=== PATIENT | male | born 1960 | race Caucasian/White ===

== ENCOUNTER 2018-03-09 20:34 | Emergency (ER) | payer MEDICARE, SELFPAY ==
[2018-03-09 20:35] VITALS: BP 140/76; PULSE 94; RESP 18; TEMP 35.6; O2SAT 97; BMI 47.0
[2018-03-09 20:45] VITALS: BP 111/68; PULSE 93; RESP 18; O2SAT 93
[2018-03-09] MEDS: Aspirin 81 MG TAB.CHEW 324 MG PO (21:02)
[2018-03-09 21:10] LABS: Absolute Lymphocyte Count 2.27 X10^3/ul (0.83-4.51); Absolute Neutrophil Count 6.4 X10^3/uL (2.0-7.7); Basophil# 0.01 X10^3/uL; Basophil% 0.1 % (0-1); Eosinophil# 0.17 X10^3/uL; Eosinophils% 1.8 % (0-5); Hematocrit 45.7 % (40-54); Hemoglobin 15.3 g/dl (13.0-16.5); Lymphocyte # 2.27 X10^3/ul (4.0); Lymphocyte % 23.7 % (19-41); Mean Corp Hgb Conc 33.5 g/gl (32-36); Mean Corpuscular Volume 86.6 fL (80-94); Mean Platelet Vol. 11.2 fl (6.2-12.0); Monocyte% 7.3 % (0-10); Neutrophil # 6.41 X10^3/uL (2.7-7.7); Platelet Count 116 K/mm3 (150-450); RBC Distribution Width CV 15.1 % (11.6-14.6); RBC Distribution Width SD 48.3 fl (35.1-43.9); Red Blood Count 5.28 M/mm3 (4.6-6.2); White Blood Count 9.6 K/mm3 (4.4-11.0)
[2018-03-09 21:13] LABS: POSITIVE COUNT NO; POSITIVE DIFFERENTIAL NO; POSITIVE MORPHOLOGY NO
[2018-03-09 21:30] LABS: Anion Gap 9 (5-15); BUN 14 mg/dL (7-18); BUN/Creat Ratio 14.5 RATIO (10-20); Calcium,Total 9.2 mg/dL (8.5-10.1); Chloride 101 mmol/L (98-107); Creatinine, Serum 0.96 mg/dL (0.70-1.30); EST Glomerular Filtration Rate 86 mL/min (>60); Est Glom Filt Rate - Afr Amer 104 mL/min (>60); Estimated Creatinine Clearance 81.29 ml/min; Glucose 99 mg/dL (74-106); Potassium 3.3 mmol/L (3.5-5.1); Sodium Level 141 mmol/L (136-145)
--- NOTE | 2018-03-09 21:56 | ED.VISSUMM ---
- ER Visit Summary Date of Service: 03/09/18 Chief Complaint: Right arm and neck pain History of Present Illness: The patient is a 57 M with complaints of right arm and neck pain over the past 3 or 4 days. It is not worsened with movement. He states he did have similar symptoms prior CT 25 years ago. Patient does have 2 cardiac stents. His last stress test was 2 years ago and normal. Patient denies any pain radiating into his chest. He states that he is chronically short of breath and it is not any worse than normal. Pain is not worsened with exertion. Physical Examination: Vital signs unremarkable. Patient sitting upright in bed no acute distress. He speaking full sentences. Head neck examination is unremarkable. He does not have any reproducible tenderness over the neck or cervical region. Heart is regular rate and rhythm. Lung sounds are clear. Abdomen is soft nontender. Right upper extremity examination reveals no reducible tenderness. He has full range of motion without difficulty. He has strong distal pulses and normal sensation. Test Results: EKG is sinus 89 with no sign of acute ischemia. Portable chest x-ray shows elevated right hemidiaphragm. There is mild basilar atelectasis. CBC significant for a platelet count of 116,000, otherwise unremarkable. Chemistry studies show potassium slightly low at 3.3. Troponin is less than 0.015. Emergency Department Course and Treatment: Patient received aspirin on arrival. On repeat evaluation patient denies any significant change in his symptoms. He will be given potassium. He has had 3-4 days of constant pain with no EKG or troponin change. He would prefer to go home if possible. He has been taking tramadol. He will be given [place] in place of tramadol. I will speak with on-call for primary care physician to help arrange close follow-up. Treatment Plan: [] Disposition: Discharge Impression: Right neck and arm pain This note was generated with [employer] dictation software. It may contain incorrect words, spelling, and punctuation that were not noted in review of the chart prior to signing ED Disposition - Plan for ED Patient: Chief Complaint: Upper Extremity Injury Referrals: Manuelito Hughes MD [Primary Care Provider] -
--- NOTE | 2018-03-09 21:59 | ED.DEP ---
ED Disposition - Plan for ED Patient: Disposition: Home or Assisted Living Chief Complaint: Upper Extremity Injury Instructions: ED Neck Pain No Trauma Prescriptions: Hydrocodone Bitart/Apap 5-325 [Geraldine 5MG-325MG] 1 tablet PO Q6H PRN PRN 3 Days #10 tablet PRN Reason: Pain Referrals: Manuelito Hughes MD [Primary Care Provider] - As soon as possible
[2018-03-09 22:09] VITALS: BP 115/70; PULSE 85; RESP 14; O2SAT 98
[2018-03-09] MEDS: HYDROcodone Bitartrate/Apap 5/325 Tablet PO (22:17)
== END 2018-03-09 22:23 | disposition home or self-care (01) ==
PROVIDERS: Emergency Provider Emergency Medicine; Family Provider Internal Medicine; PCP Internal Medicine
DX: M54.2 Cervicalgia (principal); M79.601 Pain in right arm; E87.6 Hypokalemia; I25.2 Old myocardial infarction; I10 Essential (primary) hypertension; E78.00 Pure hypercholesterolemia, unspecified; K21.9 Gastro-esophageal reflux disease without esophagitis; E11.9 Type 2 diabetes mellitus without complications; E66.9 Obesity, unspecified; Z68.42 Body mass index [BMI] 45.0-49.9, adult; Z95.5 Presence of coronary angioplasty implant and graft; Z79.84 Long term (current) use of oral hypoglycemic drugs; Z79.4 Long term (current) use of insulin; Z79.899 Other long term (current) drug therapy
CPT/HCPCS: 71045; 80048; 84484; 85025; 93005; 99285; A4216

== ENCOUNTER 2019-02-22 16:32 | Inpatient (IN) | payer MEDICARE, SELFPAY ==
[2019-02-22] VITALS (9 sets, daily range): BP systolic 137–164; BP diastolic 62–97; PULSE 81–103; RESP 17–28; TEMP 37.1–37.6; O2SAT 80–98; BMI 47.1; BMI 48.2
--- NOTE | 2019-02-22 16:39 | EKG12_ITS ---
Test Reason : COUGH Blood Pressure : / mmHG Vent. Rate : 090 BPM Atrial Rate : 090 BPM P-R Int : 202 ms QRS Dur : 086 ms QT Int : 350 ms P-R-T Axes : 056 241 052 degrees QTc Int : 428 ms Normal sinus rhythm Low Voltage QRS (Limb Leads) Anterolateral infarct (cited on or before 09-MAR-2018), age undetermined Abnormal ECG Confirmed by APURVA ALEXIS, ELLIE ([id number]), art editor GAL COY ([id number]) on 02/25/2019 10:42:39 AM Referred By: Angel Goldberg Confirmed By:ELLIE MIXON MD
--- NOTE | 2019-02-22 16:40 | ED.VIS.GEN ---
History of Present Illness Chief Complaint: Cough Informant: Patient Onset: Weeks Context: Gradual Onset Timing: Continuous Current Severity: Moderate Maximum Severity: Severe Narrative: The patient presents to the emergency department cough and shortness of breath. The patient does have a significant smoking history, but states he is never been diagnosed with COPD or asthma. He states his symptoms began about a week ago. He states he had a tetanus shot. 2 days later, he was having chills and sweats. He states he began to have some upper respiratory symptoms with mild nasal drainage and now has had worsening cough. He states he feels like he cannot catch his breath. He is been doing breathing treatments little improvement. He does not think he had fever. He denies chest pain. He denies orthopnea or leg swelling. Prior similar symptoms: No Recent Illness/Hospitalization: No Past Medical History - Allergies and Home Meds Allergies/Adverse Reactions: Allergies No Known Allergies Allergy (Verified 02/22/19 16:34) Primary Care Physician: Manuelito Hughes MD [Primary Care Provider] - Prior records reviewed: Yes Surgical History: noncontributory Smoking Status: Current every day smoker Alcohol: None Drugs: Marijuana Review of Systems General: Reports: Chills Eyes: Denies: Visual changes - bilaterally, Diplopia ENT: Denies: Rhinorrhea, Sore throat Cardiovascular: Denies: Chest pain, Palpitations Respiratory: Reports: Cough, Dyspnea on exertion Gastrointestinal: Denies: Abdominal pain, Nausea, Vomiting, Diarrhea, Melena, Hematochezia Genitourinary: Denies: Dysuria, Hematuria, Frequency Musculoskeletal: Reports: Myalgias Skin: Denies: Rash, Wounds Neurological: Denies: Headache, Weakness, Numbness Physical Exam Vital Signs/Narrative: Vital Signs Temp Pulse Resp BP Pulse Ox 02/22/19 16:33 98.8 F 103 H 28 H 164/97 H 98 Inital Vital Signs reviewed: Yes General: Well nourished, Well developed, No Acute Distress Head: Normocephalic, Atraumatic Eyes: Perrl, EOMI ENT: Moist mucous membranes, No rhinorrhea Neck: Supple, Nontender Cardiovascular: Regular rate, Regular rhythm, No murmurs Respiratory: No distress, Chest nontender, Wheezing, Decreased Air Movement Abdomen: Soft, Nontender, Nondistended, Normal bowel sounds Back: Nontender, Normal Inspection Extremities: Nontender, No edema Skin: Normal color, No rash Neurological: Alert, Oriented x3, Cranial nerves II-XII grossly intact, Normal Strength, Normal Sensation Psychological: Normal affect, Normal Mood Diagnostic/Tx/Re-eval Chest X-Ray - ED: 1 View, Read by ED Physician, Left Infiltrate Clinical Impression(s) from Imaging Studies Chest X-Ray 02/22/19 16:57 IMPRESSION: Mild left upper lobe pneumonia is suspected. Electronically Signed: Shaun Cui MD at 17:29 EDT Tel , Service support , Abnormal Lab Results 02/22/19 02/22/19 02/22/19 17:06 17:06 17:12 WBC 13.3 H RBC 5.33 Hgb 15.0 Hct 46.4 MCV 87.1 MCH 28.1 MCHC 32.3 RDW Std Deviation 56.5 H RDW Coeff of Tariq 18.1 H Plt Count 130 L MPV 11.3 Immature Gran % (Auto) 0.500 Neut % (Auto) 77.5 H Lymph % (Auto) 14.6 L Briscoe % (Auto) 6.6 Eos % (Auto) 0.6 Baso % (Auto) 0.2 Absolute Neuts (auto) 10.3 H Absolute Lymphs (auto) 1.94 Nucleated RBC % 0 Sodium 134 L Potassium 3.7 Chloride 98 Carbon Dioxide 30.0 Anion Gap 6 BUN 17 Creatinine 1.23 Estim Creat Clear Calc 64.88 Est GFR (MDRD) Af Amer 78 Est GFR (MDRD) Non-Af 65 BUN/Creatinine Ratio 13.8 Glucose 160 H Lactic Acid 1.6 Calcium 9.4 Troponin I < 0.015 - Rhythm Strip Rhythm Strip: Sinus Rhythm - EKG Initial EKG Interpretation: Sinus Rhythm, Non-Specific ST Changes Prior: Unchanged - Medical Decision Making The patient initially was not hypoxic on triage vitals, however when he was placed in the room and placed on the employee relations specialist his oxygen saturations was in the low 80s. He was given nebulized breathing treatments and placed on supplemental oxygen. With his breathing treatments, his aeration had improved, but he was still requiring oxygen. Chest x-ray does show a left upper lobe infiltrate. He does have a leukocytosis, but otherwise labs are unremarkable. His EKG shows no evidence of acute ischemia. At this point, given his oxygen requirement and evidence of pneumonia I do feel that he would benefit from admission. He was covered with broad-spectrum antibiotics. The patient was discussed with the hospitalist. Impression 1. Community-acquired pneumonia 2. Hypoxia requiring supplemental oxygen ED Disposition - Plan for ED Patient: Referrals: Manuelito Hughes MD [Primary Care Provider] -
--- NOTE | 2019-02-22 16:57 | RAD_ITS ---
STUDY: X-RAY CHEST REASON FOR EXAM: Male, 58 years old. Cough TECHNIQUE: Single frontal view of the chest. COMPARISON: 03/09/2018 FINDINGS: Mild left upper lobe pneumonia is suspected. There is no demonstrated pleural abnormality. Normal size heart. Normal mediastinum and ny. Normal visualized pulmonary arteries. Normal visualized aortic arch and descending thoracic aorta. Normal visualized thoracic spine. Normal visualized ribs, clavicles, and shoulders. There is no demonstrated abnormality of the visualized soft tissue structures of the upper abdomen. RAD/Chest 1 View (Portable) IMPRESSION: Mild left upper lobe pneumonia is suspected. Electronically Signed: Shaun Cui MD at 17:29 EDT Tel , Service support ,
[2019-02-22] MEDS: MethylPREDNISolone 125 MG/2 ML Vial IV (17:02)
[2019-02-22] MEDS: Ipratropium/Albuterol Sulfate 3 ML AMPUL.NEB INHALATION ×2 (17:02→22:50)
[2019-02-22] MEDS: 0.9% Normal Saline 1,000 ML 150 ML IV (17:02)
[2019-02-22] MEDS: Albuterol 2.5 MG/3 ML VIAL.NEB. INHALATION ×3 (17:06→17:07)
[2019-02-22 17:34] LABS: Absolute Lymphocyte Count 1.94 X10^3/uL (0.83-4.51); Absolute Neutrophil Count 10.3 X10^3/uL (2.0-7.7); Basophil# 0.03 X10^3/uL; Basophil% 0.2 % (0-1); Eosinophil# 0.08 X10^3/uL; Eosinophils% 0.6 % (0-5); Hematocrit 46.4 % (40-54); Lymphocyte # 1.94 X10^3/ul (4.0); Lymphocyte % 14.6 % (19-41); Mean Corp Hgb Conc 32.3 g/dL (32-36); Mean Corpuscular Hgb 28.1 pg (27.0-32.0); Mean Corpuscular Volume 87.1 fL (80-94); Mean Platelet Vol. 11.3 fl (6.2-12.0); Monocyte# 0.88 X10^3/uL; Monocyte% 6.6 % (0-10); NRBC Flagged by Analyzer 0 % (0-5); Neutrophil # 10.32 X10^3/uL (2.7-7.7); Neutrophil % 77.5 % (47-70); Platelet Count 130 K/mm3 (150-450); RBC Distribution Width CV 18.1 % (11.6-14.6); RBC Distribution Width SD 56.5 fl (35.1-43.9); Red Blood Count 5.33 M/mm3 (4.6-6.2); White Blood Count 13.3 K/mm3 (4.4-11.0)
[2019-02-22] MEDS: Ceftriaxone 1 GM/50 ML BAG IV (17:39)
[2019-02-22 17:46] LABS: Lactic Acid 1.6 mmol/L (0.4-2.0)
[2019-02-22 17:47] LABS: Anion Gap 6 (5-15); BUN 17 mg/dL (7-18); BUN/Creat Ratio 13.8 RATIO (10-20); Calcium,Total 9.4 mg/dL (8.5-10.1); Chloride 98 mmol/L (98-107); Creatinine, Serum 1.23 mg/dL (0.70-1.30); EST Glomerular Filtration Rate 65 mL/min (>60); Est Glom Filt Rate - Afr Amer 78 mL/min (>60); Estimated Creatinine Clearance 64.88 ml/min; Glucose 160 mg/dL (74-106); Potassium 3.7 mmol/L (3.5-5.1); Sodium Level 134 mmol/L (136-145)
--- NOTE | 2019-02-22 18:16 | HP.PCM_ITS ---
Problem List (1) Pneumococcal pneumonia Status: Acute Qualifiers: Laterality: left Lung location: upper lobe of lung Qualified Code(s): J13 - Pneumonia due to Streptococcus pneumoniae (2) Acute respiratory insufficiency Status: Acute (3) COPD exacerbation Status: Suspected History of Present Illness Date of Admission: 02/22/19 Chief Complaint: shorntess of breath. The patient is a 58 year old M who has not been feeling well over the past week and has been progressively short of breath during this time. Presented to the emergency room and was noted to be hypoxic at 80%. Patient had a chest x-ray that was concerning for a left lower lobe infiltrate. In the emergency room, patient received aerosols, methylprednisolone, azithromycin and ceftriaxone. Patient was put on oxygen and his oxygenation improved into the 90s. Patient does smoke a pipe but is never been formally evaluated for COPD or asthma. [] Past Medical History Medical History: Medical History (Last Updated 02/22/19 @ 18:20 by Angel Goldberg DO) DM2 (diabetes mellitus, type 2) E11.9 HTN (hypertension) I10 Allergies No Known Allergies Allergy (Verified 02/22/19 16:34) Home Medications: Ambulatory Orders Medication Instructions Recorded Aspirin 325 mg PO DAILY@0800 03/09/18 Atorvastatin Calcium 1 tab PO QHS 03/09/18 Carvedilol 25 mg PO BID 03/09/18 Insulin Glargine,Hum.rec.anlog 100 unit SQ ACHS 03/09/18 [Lantus] Insulin Lispro [Humalog] 0 unit SQ DINNER 03/09/18 Lisinopril [Zestril] 40 mg PO DAILY 03/09/18 Metformin HCl 1,000 mg PO BID 03/09/18 Metoprolol Succinate 100 mg PO BID 03/09/18 Omeprazole 40 mg PO DAILY 03/09/18 Pregabalin [Lyrica] 50 mg PO BID 03/09/18 Surgical History: Surgical History (Last Updated 02/22/19 @ 18:20 by Angel Goldberg DO) S/P hip replacement Z96.649 bilateral Psychiatric History: No pertinent psych hx Lives: Alone Smoking Status: Current every day smoker Tobacco Use: Pipe Alcohol: None Drugs: None, Marijuana - *Family History Maternal History Items: - - no COPD Review of Systems Constitutional: Reports: Chills, Malaise. Denies: Anorexia, Night Sweats Eyes: Denies: Blurred vision, Double vision HEENT: Reports: Nasal Congestion, Sinus Drainage, Sore Throat Cardiovascular: Reports: Chest Pain - with coughing.. Denies: Palpitations Respiratory: Reports: Cough, Shortness of Breath, Sputum production, - - Paro xysmal nocturnal dyspnea Gastrointestinal: Denies: Abdominal Pain, Nausea, Vomiting Genitourinary: Denies: Dysuria Musculoskeletal: Denies: Joint Pain, Joint Tenderness Skin: Denies: Rash, Wounds Neurological: Denies: Numbness, Tingling, Focal weakness Endocrine: Denies: Change in Body Habitus, Heat/ Cold Intolerance Hematologic/ Lymphatic: Denies: Easy Bruising, Easy Bleeding, Hx of blood clot Comment: A 10 point review of systems were negative except as mentioned in the history of present illness and the other review of systems. VTE Information - Inpt Only VTE Present on Admission: No VTE Mechan Device Prophylaxis: None VTE Pharm Prophylaxis ordered?: Yes Patient Problems: Active and Suspected Problems Pneumococcal pneumonia (Acute) Acute respiratory insufficiency (Acute) COPD exacerbation (Suspected) - Physical Exam General: Alert, Cooperative, No apparent distress, - - On nasal cannula oxygen, no respiratory distress, no conversational dyspnea. HEENT: Atraumatic, PERRLA, EOMI, Normocephalic Oral: Moist Mucosa, - - Edentulous Neck: No Nodes, Thyroid Normal Size and Texture Lungs: Clear to auscultation, Normal air movement, No rhonchi, No wheeze, No rales Cardiovascular: Regular rate, Regular Rhythm, Normal S1, Normal S2, No murmurs Abdomen: Bowel Sounds Present, Soft, Non Tender, Non-Distended, No Hepato- splenomegaly, Obese Extremities: No edema, No Calf Tenderness Skin: No rashes, No breakdown Musculoskeletal: No Tenderness to Palpation of Joints or Extremities, No Muscle Wasting Neurological: Deep Tendon Reflexes 2+/4 and Symmetrical, - - No clonus Psych/Mental Status: Normal Affect, Appropriate Vital Signs Temp Pulse Resp BP Pulse Ox 37.1 C 99 18 164/97 H 90 02/22/19 16:51 02/22/19 17:06 02/22/19 17:06 02/22/19 16:33 02/22/19 16:51 Oxygen Flow Rate (L/min) 4 Oxygen Delivery Method Room Air Weight: 140.614 kg Body Mass Index (BMI) 47.1 Laboratory Tests Past 24 Hrs 02/22/19 02/22/19 02/22/19 17:06 17:06 17:12 WBC 13.3 H RBC 5.33 Hgb 15.0 Hct 46.4 MCV 87.1 MCH 28.1 MCHC 32.3 RDW Std Deviation 56.5 H RDW Coeff of Tariq 18.1 H Plt Count 130 L MPV 11.3 Immature Gran % (Auto) 0.500 Neut % (Auto) 77.5 H Lymph % (Auto) 14.6 L [place]duff[place] % (Auto) 6.6 Eos % (Auto) 0.6 Baso % (Auto) 0.2 Absolute Neuts (auto) 10.3 H Absolute Lymphs (auto) 1.94 Nucleated RBC % 0 Sodium 134 L Potassium 3.7 Chloride 98 Carbon Dioxide 30.0 Anion Gap 6 BUN 17 Creatinine 1.23 Estim Creat Clear Calc 64.88 Est GFR (MDRD) Af Amer 78 Est GFR (MDRD) Non-Af 65 BUN/Creatinine Ratio 13.8 Glucose 160 H Lactic Acid 1.6 Calcium 9.4 Troponin I < 0.015 Chest x-ray personally reviewed and showed very faint hazy left upper lobe infiltrate Assessment/Plan All Active Problems Pneumococcal pneumonia (Acute) Acute respiratory insufficiency (Acute) 1. Pneumococcal pneumonia * Suspected * Received azithromycin as well as ceftriaxone in the emergency room. We will continue with an antibiotic regimen for now. * Pulmonary toilet * Check sputum culture * Check urinary antigens for Streptococcus and Legionella 2. Acute hypoxic respiratory insufficiency * Due to the patient's pneumonia but also may be underlying sleep apnea COPD * Wean oxygen as tolerated * Check ambulatory pulse ox prior to discharge patient is requiring oxygen still 3. Diabetes mellitus type 2: Continue with his metformin, insulin glargine, add sliding scale insulin 4. Possible underlying COPD and obstructive sleep apnea * Advised outpatient follow-up with pulmonology to get pulmonary function tests and polysomnogram to evaluate * Given possibility of COPD and his respiratory insufficiency, will continue with bronchodilators as well as steroids. 5. VTE prophylaxis: Moderate risk. Patient will be on enoxaparin. 6. Tobacco abuse: Patient smokes pipe 4-5 times per day. Spent 5minutes discussing tobacco abuse and cessation with patient. Advised cessation, discussed the risks of worsening COPD or other worsening lung condition if continue to smoke. Explained discontinuation of nicotine while in the hospital. Code Visit Inpatient E&M: 43375 Init Hosp L3 - Behavior Interventions Behavior Intervention: 31229 Smoking Cessation 3-10 min
[2019-02-22 20:11] LABS: Bedside Glucose 204 mg/dL (70-110)
[2019-02-22 22:35] LABS: Bedside Glucose 284 mg/dL (70-110)
[2019-02-22] MEDS: guaiFENesin 1,200 MG Tablet 1200 MG PO (22:42)
[2019-02-22] MEDS: Carvedilol 25 MG Tablet PO (22:42)
[2019-02-22] MEDS: Pregabalin 50 MG Capsule PO (22:42)
[2019-02-22] MEDS: MELATONIN 3 MG TABLET PO (22:42)
[2019-02-22] MEDS: 0.9% NaCl Peripheral Flush Adult/Peds IV (22:44)
[2019-02-22] MEDS: Insulin Lispro 100 UNIT/ML INSULN.PEN SC (22:45)
[2019-02-23] VITALS (16 sets, daily range): BP systolic 91–142; BP diastolic 52–91; PULSE 72–98; RESP 15–20; TEMP 36.2–36.6; O2SAT 91–98
[2019-02-23] MEDS: Acetaminophen 325 MG Tablet 650 MG PO (03:04)
[2019-02-23] MEDS: Ipratropium/Albuterol Sulfate 3 ML AMPUL.NEB INHALATION ×5 (03:09→19:30)
[2019-02-23 03:11] LABS: Bedside Glucose 341 mg/dL (70-110)
[2019-02-23 05:50] LABS: Absolute Lymphocyte Count 0.98 X10^3/uL (0.83-4.51); Absolute Neutrophil Count 8.9 X10^3/uL (2.0-7.7); Basophil# 0.01 X10^3/uL; Basophil% 0.1 % (0-1); Eosinophil# 0.16 X10^3/uL; Eosinophils% 1.6 % (0-5); Hemoglobin 14.9 g/dL (13.0-16.5); Lymphocyte # 0.98 X10^3/ul (4.0); Lymphocyte % 9.6 % (19-41); Mean Corp Hgb Conc 31.7 g/dL (32-36); Mean Corpuscular Hgb 27.7 pg (27.0-32.0); Mean Corpuscular Volume 87.4 fL (80-94); Mean Platelet Vol. 11.2 fl (6.2-12.0); Monocyte# 0.12 X10^3/uL; Monocyte% 1.2 % (0-10); NRBC Flagged by Analyzer 0 % (0-5); Neutrophil # 8.92 X10^3/uL (2.7-7.7); Neutrophil % 87.1 % (47-70); POSITIVE MORPHOLOGY YES; Platelet Count 104 K/mm3 (150-450); RBC Distribution Width CV 17.6 % (11.6-14.6); RBC Distribution Width SD 55.4 fl (35.1-43.9); Red Blood Count 5.38 M/mm3 (4.6-6.2); White Blood Count 10.2 K/mm3 (4.4-11.0)
[2019-02-23 06:02] LABS: Differential Indicated SCAN CRITERIA MET
[2019-02-23 06:13] LABS: Anion Gap 11 (5-15); BUN 32 mg/dL (7-18); BUN/Creat Ratio 22.9 RATIO (10-20); Calcium,Total 8.9 mg/dL (8.5-10.1); Chloride 96 mmol/L (98-107); EST Glomerular Filtration Rate 56 mL/min (>60); Est Glom Filt Rate - Afr Amer 67 mL/min (>60); Estimated Creatinine Clearance 55.08 ml/min; Glucose 313 mg/dL (74-106); Potassium 4.3 mmol/L (3.5-5.1); Sodium Level 134 mmol/L (136-145)
[2019-02-23 06:40] LABS: Differential Comment SCANNED; Polychromasia RARE
[2019-02-23] MEDS: Insulin Lispro 100 UNIT/ML INSULN.PEN SC ×4 (06:54→22:13)
[2019-02-23] MEDS: 0.9% NaCl Peripheral Flush Adult/Peds IV ×4 (06:54→22:12)
[2019-02-23 07:06] LABS: Bedside Glucose 315 mg/dL (70-110)
--- NOTE | 2019-02-23 08:35 | PN_ITS ---
Patient Problems: Active and Suspected Problems (Last Updated 02/22/19 @ 18:20 by Angel Goldberg DO) Pneumococcal pneumonia (Acute) Acute respiratory insufficiency (Acute) COPD exacerbation (Suspected) Subjective: Patient is a 58-year-old gentleman with BMI of 8.2, diabetes mellitus type 2, history of tobacco use who presented with progressive shortness of breath chest x-ray obtained on admission demonstrated Mild left upper lobe pneumonia , admitted to regular nursing floor where patient has since been managed 02/23/2019: Patient seen still remains significantly dyspneic at rest with labored breathing patient also appears deconditioning requested for PT OT eval Objective: GENERAL: Dyspneic at rest HEENT: Atraumatic; EYES; Anicteric, NECK; supple, normal thyroid, RESPIRATORY: Diminished to auscultation bilaterally, CARDIOVASCULAR: Regular S1 S2, GI: soft, non-tender, normoactive bowel sounds, : No Renal angle tenderness; EXTREMITIES: No edema, no clubbing, MUSCULOSKELETAL: No Joint Tenderness; NEURO: Awake; no lateralizing signs. SKIN: No Rash PSYCH; Normal affect Vitals/I&O's: Vital Signs Temp Pulse Resp BP Pulse Ox 97.4 F L 80 18 142/91 H 92 02/23/19 06:55 02/23/19 07:07 02/23/19 07:07 02/23/19 06:55 02/23/19 07:07 Oxygen Flow Rate (L/min) 4 Oxygen Delivery Method Nasal Cannula Weight: 139.7 kg Body Mass Index (BMI) 48.2 Intake and Output for Last 24 Hours 02/21/19 02/22/19 02/23/19 23:59 23:59 23:59 Intake Total 710 / 710 Balance 710 / 710 Laboratory Results 02/22/19 17:06: WBC 13.3 H, RBC 5.33, Hgb 15.0, Hct 46.4, MCV 87.1, MCH 28.1, MCHC 32.3, RDW Std Deviation 56.5 H, RDW Coeff of Tariq 18.1 H, Plt Count 130 L, MPV 11.3, Immature Gran % (Auto) 0.500, Neut % (Auto) 77.5 H, Lymph % (Auto) 14.6 L, [place] % (Auto) 6.6, Eos % (Auto) 0.6, Baso % (Auto) 0.2, Absolute Neuts (auto) 10.3 H, Absolute Lymphs (auto) 1.94, Nucleated RBC % 0 02/22/19 17:06: Sodium 134 L, Potassium 3.7, Chloride 98, Carbon Dioxide 30.0, Anion Gap 6, BUN 17, Creatinine 1.23, Estim Creat Clear Calc 64.88, Est GFR (MDRD) Af Amer 78, Est GFR (MDRD) Non-Af 65, BUN/Creatinine Ratio 13.8, Glucose 160 H, Calcium 9.4, Troponin I < 0.015 02/22/19 17:12: Lactic Acid 1.6 02/22/19 20:05: POC Glucose 204 H 02/22/19 22:29: POC Glucose 284 H 02/23/19 03:03: POC Glucose 341 H 02/23/19 05:32: WBC 10.2, RBC 5.38, Hgb 14.9, Hct 47.0, MCV 87.4, MCH 27.7, MCHC 31.7 L, RDW Std Deviation 55.4 H, RDW Coeff of Tariq 17.6 H, Plt Count 104 L, MPV 11.2, Immature Gran % (Auto) 0.400, Neut % (Auto) 87.1 H, Lymph % (Auto) 9.6 L, [place] % (Auto) 1.2, Eos % (Auto) 1.6, Baso % (Auto) 0.1, Absolute Neuts (auto) 8.9 H, Absolute Lymphs (auto) 0.98, Nucleated RBC % 0, Differential Comment SCANNED, Polychromasia RARE 02/23/19 05:32: Sodium 134 L, Potassium 4.3, Chloride 96 L, Carbon Dioxide 27.0, Anion Gap 11, BUN 32 H, Creatinine 1.40 H, Estim Creat Clear Calc 55.08, Est GFR (MDRD) Af Amer 67, Est GFR (MDRD) Non-Af 56 L, BUN/Creatinine Ratio 22.9 H, Glucose 313 H, Calcium 8.9 02/23/19 06:48: POC Glucose 315 H Current Medications Acetaminophen (Tylenol) 650 mg PO Q6H PRN PRN PRN Reason: Mild Pain (1-3)/Temp > 100.7 F Last Admin: 02/23/19 03:04 Dose: 650 mg Documented by: Al Hydroxide/Mg Hydroxide (Mylanta Ii) 30 ml PO Q6H PRN PRN PRN Reason: Gastric Burning Albuterol Sulfate (Ventolin Aerosols) 2.5 mg INHALATION Q2H PRN PRN PRN Reason: SHORTNESS OF BREATH Albuterol/Ipratropium (Duoneb) 3 ml INHALATION Q4H.RT [facility] Last Admin: 02/23/19 07:07 Dose: 3 ml Documented by: Aspirin (Aspirin) 325 mg PO DAILY@0800 [facility] Atorvastatin Calcium (Lipitor) 80 mg PO QHS [facility] Carvedilol (Coreg) 25 mg PO BID [facility] Last Admin: 02/22/19 22:42 Dose: 25 mg Documented by: Dextrose (D50w Syringe) 0 gm IV X1 PRN; Protocol PRN Reason: Hypoglycemia Enoxaparin Sodium (Lovenox) 40 mg SC DAILY@1000 [facility] Glucagon () 1 mg IM .X1 PRN PRN Reason: Hypoglycemia Guaifenesin (Mucinex) 1,200 mg PO BID [facility] Last Admin: 02/22/19 22:42 Dose: 1,200 mg Documented by: Ceftriaxone Sodium (Rocephin) 1 gm in 50 mls @ 100 mls/hr IV Q24 [facility] Azithromycin 500 mg/ Dextrose 255 mls @ 250 mls/hr IV Q24 [facility] Stop: 02/24/19 11:02 Ibuprofen (Motrin) 400 mg PO Q4H PRN PRN PRN Reason: Mild Pain (1-3)/Temp > 100.7 F Insulin Human Lispro (Humalog Kwikpen (Bkc)) 0 unit SC ACHS [facility]; Protocol Last Admin: 02/23/19 06:54 Dose: 5 u Documented by: Lisinopril (Zestril) 40 mg PO DAILY [facility] Melatonin (Melatonin) 3 mg PO QHS PRN PRN PRN Reason: INSOMNIA Last Admin: 02/22/19 22:42 Dose: 3 mg Documented by: Metformin [facility] (Glucophage) [facility] Methylprednisolone (Solu-Medrol) 40 mg IV Q8 [facility] Last Admin: 02/23/19 06:54 Dose: 40 mg Documented by: Metoprolol Succinate (Toprol Xl (Beta Fer)) 100 mg PO BID [facility] Non-Formulary Medication (Insulin Glargine,Hum.Rec.Anlog) 100 unit SQ ACHS [facility] Ondansetron HCl (Zofran) 4 mg IV Q8H PRN PRN PRN Reason: NAUSEA/VOMITING Pantoprazole Sodium (Protonix) 40 mg PO DAILY [facility] Pregabalin (Lyrica) 50 mg PO BID [facility] Last Admin: 02/22/19 22:42 Dose: 50 mg Documented by: Sodium Chloride () 10 - 40 ml IV UD PRN PRN Reason: SALINE FLUSH Last Admin: 02/23/19 06:54 Dose: 10 ml Documented by: Medical Necessity - Tobacco Use Smoking Status: Current every day smoker Tobacco Use: Pipe Assessment/Plan All Active Problems (Last Updated 02/22/19 @ 18:20 by Angel Goldberg DO) Pneumococcal pneumonia (Acute) Acute respiratory insufficiency (Acute) Patient is a 58-year-old gentleman with BMI of 8.2, diabetes mellitus type 2, history of tobacco use who presented with progressive shortness of breath chest x-ray obtained on admission demonstrated Mild left upper lobe pneumonia , admitted to regular nursing floor where patient has since been managed 1. Pneumonia: Suspected to be secondary to streptococcal pneumonia. Patient is admitted to regular floor. Patient placed onRocephin and Zithromax. He was also placed on oxygen titrated to keep also is greater than 90 2. Morbid obesity with BMI of 48.2 weight loss advised 3. Suspected sleep apnea patient undergo sleep study as outpatient 4. Diabetes mellitus type 2 did continue with patient home regimen in addition to Accu-Cheks before meals and at bedtime with sliding scale coverage 5. Dyslipidemia-patient is on statin therapy, continued at home dose 6. Hypertension-blood pressure controlled, home medications continued with dose adjustment as needed 7. Tobacco dependence counseled on cessation, offered nicotine patch for tobacco cravings 8. DVT prophylaxis SC Lovenox Active Medications Acetaminophen (Tylenol) 650 mg PO Q6H PRN PRN PRN Reason: Mild Pain (1-3)/Temp > 100.7 F Last Admin: 02/23/19 03:04 Dose: 650 mg Documented by: Al Hydroxide/Mg Hydroxide (Mylanta Ii) 30 ml PO Q6H PRN PRN PRN Reason: Gastric Burning Albuterol Sulfate (Ventolin Aerosols) 2.5 mg INHALATION Q2H PRN PRN PRN Reason: SHORTNESS OF BREATH Albuterol/Ipratropium (Duoneb) 3 ml INHALATION Q4H.RT [facility] Last Admin: 02/23/19 07:07 Dose: 3 ml Documented by: Aspirin (Aspirin) 325 mg PO DAILY@0800 [facility] Atorvastatin Calcium (Lipitor) 80 mg PO QHS [facility] Carvedilol (Coreg) 25 mg PO BID [facility] Last Admin: 02/22/19 22:42 Dose: 25 mg Documented by: Dextrose (D50w Syringe) 0 gm IV X1 PRN; Protocol PRN Reason: Hypoglycemia Enoxaparin Sodium (Lovenox) 40 mg SC DAILY@1000 [facility] Glucagon () 1 mg IM .X1 PRN PRN Reason: Hypoglycemia Guaifenesin (Mucinex) 1,200 mg PO BID [facility] Last Admin: 02/22/19 22:42 Dose: 1,200 mg Documented by: Ceftriaxone Sodium (Rocephin) 1 gm in 50 mls @ 100 mls/hr IV Q24 [facility] Azithromycin 500 mg/ Dextrose 255 mls @ 250 mls/hr IV Q24 [facility] Stop: 02/24/19 11:02 Ibuprofen (Motrin) 400 mg PO Q4H PRN PRN PRN Reason: Mild Pain (1-3)/Temp > 100.7 F Insulin Human Lispro (Humalog Kwikpen (Bkc)) 0 unit SC ACHS [facility]; Protocol Last Admin: 02/23/19 06:54 Dose: 5 u Documented by: Lisinopril (Zestril) 40 mg PO DAILY [facility] Melatonin (Melatonin) 3 mg PO QHS PRN PRN PRN Reason: INSOMNIA Last Admin: 02/22/19 22:42 Dose: 3 mg Documented by: Metformin HCl (Glucophage) [facility] Methylprednisolone (Solu-Medrol) 40 mg IV Q8 [facility] Last Admin: 02/23/19 06:54 Dose: 40 mg Documented by: Metoprolol Succinate (Toprol Xl (Beta Fer)) 100 mg PO BID [facility] Non-Formulary Medication (Insulin Glargine,Hum.Rec.Anlog) 100 unit SQ ACHS [facility] Ondansetron HCl (Zofran) 4 mg IV Q8H PRN PRN PRN Reason: NAUSEA/VOMITING Pantoprazole Sodium (Protonix) 40 mg PO DAILY [facility] Pregabalin (Lyrica) 50 mg PO BID [facility] Last Admin: 02/22/19 22:42 Dose: 50 mg Documented by: Sodium Chloride () 10 - 40 ml IV UD PRN PRN Reason: SALINE FLUSH Last Admin: 02/23/19 06:54 Dose: 10 ml Documented by: Clinical Impression(s) from Imaging Studies Chest X-Ray 02/22/19 16:57 IMPRESSION: Mild left upper lobe pneumonia is suspected. Electronically Signed: Shaun Cui MD at 17:29 EDT Tel , Service support , Code Visit Inpatient E&M: 80860 Subs Hosp L3
[2019-02-23] MEDS: metFORMIN HCl 1,000 MG Tablet 1000 MG PO ×2 (08:45→17:44)
[2019-02-23] MEDS: Aspirin 325 MG Tablet PO (08:45)
--- NOTE | 2019-02-23 10:00 | CASEMGMT ---
TANVI CARLTON Face to Face with patient for initial transition planning/care coordination assessment. RN CM introduced self and role at [facility]. Patient lying in bed, alert and oriented. Patient willing to participate in assessment and is able to answer all questions appropriately. Care providers, pharmacy, and demographics verified. Patient wishes to discharge home, denies need for home health at this time. Patient states he has no further needs or concerns at this time. CM to follow for discharge planning needs that may arise. PCP: Saul Specialists: none Preferred Pharmacy: [facility] Insurance: [facility] Prescription Benefit: yes Living Will/HPOA: none LNOK: significant other Living Arrangements: Patient lives with significant other in 1st floor apartment with no steps to enter the home. Patient is independent at home Transportation: self/family DME/HHC: Patient states he has cane and shower chair at home. Patient denies any previous HHC or SNF. Patient is currently on oxygen and will monitor for need for home oxygen. Patient states preferred DME is [employer]. Disposition Plan: Patient to discharge home with family support and follow-up plans in place. Radha HERNANDES, RN, CM
[2019-02-23] MEDS: Ceftriaxone 1 GM/50 ML BAG IV (11:05)
[2019-02-23] MEDS: Carvedilol 25 MG Tablet PO ×2 (11:13→22:07)
[2019-02-23] MEDS: guaiFENesin 1,200 MG Tablet 1200 MG PO ×2 (11:14→22:07)
[2019-02-23] MEDS: Enoxaparin 40 MG/0.4 ML Syringe SC (11:14)
[2019-02-23] MEDS: Isosorbide Mononitrate 30 MG Tablet PO (11:14)
[2019-02-23] MEDS: Pantoprazole Sodium 40 MG Tablet PO (11:15)
[2019-02-23] MEDS: amLODIPine 10 MG Tablet PO (11:15)
[2019-02-23] MEDS: Lisinopril 40 MG Tablet PO (11:15)
[2019-02-23] MEDS: Pregabalin 50 MG Capsule PO ×2 (11:26→22:07)
[2019-02-23 11:30] LABS: Bedside Glucose 363 mg/dL (70-110)
[2019-02-23] MEDS: Pioglitazone Hydrochloride 15 MG Tablet PO (12:03)
[2019-02-23] MEDS: Chlorthalidone 50 MG Tablet 25 MG PO (12:03)
[2019-02-23] MEDS: Insulin Lispro 100 UNIT/ML INSULN.PEN 30 UNIT SC ×2 (12:06→17:43)
[2019-02-23 17:08] LABS: Bedside Glucose 361 mg/dL (70-110)
[2019-02-23] MEDS: Naproxen 500 MG Tablet PO (17:44)
[2019-02-23] MEDS: Atorvastatin Calcium 80 MG Tablet PO (22:07)
[2019-02-23 22:26] LABS: Bedside Glucose 273 mg/dL (70-110)
[2019-02-24] VITALS (13 sets, daily range): BP systolic 111–132; BP diastolic 43–69; PULSE 78–90; RESP 18–22; TEMP 36.5–36.8; O2SAT 92–95
[2019-02-24] MEDS: Ipratropium/Albuterol Sulfate 3 ML AMPUL.NEB INHALATION ×6 (01:00→22:44)
[2019-02-24 02:31] LABS: Bedside Glucose 274 mg/dL (70-110)
[2019-02-24 06:35] LABS: Absolute Lymphocyte Count 1.05 X10^3/uL (0.83-4.51); Absolute Neutrophil Count 12.6 X10^3/uL (2.0-7.7); Basophil# 0.01 X10^3/uL; Basophil% 0.1 % (0-1); Eosinophil# 0.01 X10^3/uL; Eosinophils% 0.1 % (0-5); Hematocrit 42.2 % (40-54); Hemoglobin 13.7 g/dL (13.0-16.5); Lymphocyte # 1.05 X10^3/ul (4.0); Lymphocyte % 7.4 % (19-41); Mean Corp Hgb Conc 32.5 g/dL (32-36); Mean Corpuscular Hgb 28.2 pg (27.0-32.0); Mean Corpuscular Volume 86.8 fL (80-94); Mean Platelet Vol. 11.6 fl (6.2-12.0); Monocyte# 0.46 X10^3/uL; Monocyte% 3.2 % (0-10); NRBC Flagged by Analyzer 0 % (0-5); Neutrophil # 12.58 X10^3/uL (2.7-7.7); Neutrophil % 88.1 % (47-70); Platelet Count 132 K/mm3 (150-450); RBC Distribution Width CV 17.1 % (11.6-14.6); RBC Distribution Width SD 54.2 fl (35.1-43.9); Red Blood Count 4.86 M/mm3 (4.6-6.2); White Blood Count 14.3 K/mm3 (4.4-11.0)
[2019-02-24 06:54] LABS: Anion Gap 10 (5-15); BUN 58 mg/dL (7-18); BUN/Creat Ratio 38.4 RATIO (10-20); Calcium,Total 8.8 mg/dL (8.5-10.1); Chloride 96 mmol/L (98-107); Creatinine, Serum 1.51 mg/dL (0.70-1.30); EST Glomerular Filtration Rate 51 mL/min (>60); Est Glom Filt Rate - Afr Amer 62 mL/min (>60); Estimated Creatinine Clearance 51.07 ml/min; Glucose 273 mg/dL (74-106); Magnesium 2.1 mg/dL (1.6-2.6); Potassium 4.5 mmol/L (3.5-5.1); Sodium Level 134 mmol/L (136-145)
--- NOTE | 2019-02-24 07:18 | PCM.PN.HOSP ---
Patient Problems: Active and Suspected Problems (Last Updated 02/22/19 @ 18:20 by Angel Goldberg DO) Pneumococcal pneumonia (Acute) Acute respiratory insufficiency (Acute) COPD exacerbation (Suspected) Subjective: Patient seen breathing still remains labored BC count of 14.3. Requiring high flow oxygen at 4 L do suspect patient will require home oxygen on discharge Objective: GENERAL: Dyspneic at rest HEENT: Atraumatic; EYES; Anicteric, NECK; supple, normal thyroid, RESPIRATORY: Diminished to auscultation bilaterally, CARDIOVASCULAR: Regular S1 S2, GI: soft, non-tender, normoactive bowel sounds, : No Renal angle tenderness; EXTREMITIES: No edema, no clubbing, MUSCULOSKELETAL: No Joint Tenderness; NEURO: Awake; no lateralizing signs. SKIN: No Rash PSYCH; Normal affect Vitals/I&O's: Vital Signs Temp Pulse Resp BP Pulse Ox 97.7 F L 84 18 132/68 H 95 02/24/19 02:15 02/24/19 03:50 02/24/19 03:50 02/24/19 02:15 02/24/19 02:15 Oxygen Flow Rate (L/min) 4 Oxygen Delivery Method Nasal Cannula Weight: 139.7 kg Body Mass Index (BMI) 48.2 Intake and Output for Last 24 Hours 02/22/19 02/23/19 02/24/19 23:59 23:59 23:59 Intake Total 2864 / 3464 1500 / 1500 Balance 2864 / 3464 1500 / 1500 Microbiology Past 72 Hours 02/24/19 02:30 Urine, Clean Catch Streptococcus pneumoniae Antigen (M - Final 02/24/19 02:30 Urine, Clean Catch Legionella Antigen - Final 02/24/19 00:13 Sputum, Expectorated/Coughed Gram Stain - Preliminary Laboratory Results 02/23/19 11:20: POC Glucose 363 H 02/23/19 16:57: POC Glucose 361 H 02/23/19 22:05: POC Glucose 273 H 02/24/19 02:17: POC Glucose 274 H 02/24/19 05:52: WBC 14.3 H, RBC 4.86, Hgb 13.7, Hct 42.2, MCV 86.8, MCH 28.2, MCHC 32.5, RDW Std Deviation 54.2 H, RDW Coeff of Tariq 17.1 H, Plt Count 132 L, MPV 11.6, Immature Gran % (Auto) 1.100 H, Neut % (Auto) 88.1 H, Lymph % (Auto) 7.4 L, [place] % (Auto) 3.2, Eos % (Auto) 0.1, Baso % (Auto) 0.1, Absolute Neuts (auto) 12.6 H, Absolute Lymphs (auto) 1.05, Nucleated RBC % 0 02/24/19 05:52: Sodium 134 L, Potassium 4.5, Chloride 96 L, Carbon Dioxide 28.0, Anion Gap 10, BUN 58 H, Creatinine 1.51 H, Estim Creat Clear Calc 51.07, Est GFR (MDRD) Af Amer 62, Est GFR (MDRD) Non-Af 51 L, BUN/Creatinine Ratio 38.4 H, Glucose 273 H, Calcium 8.8, Magnesium 2.1 Current Medications Acetaminophen (Tylenol) 650 mg PO Q6H PRN PRN PRN Reason: Mild Pain (1-3)/Temp > 100.7 F Last Admin: 02/23/19 03:04 Dose: 650 mg Documented by: Al Hydroxide/Mg Hydroxide (Mylanta Ii) 30 ml PO Q6H PRN PRN PRN Reason: Gastric Burning Albuterol Sulfate (Ventolin Aerosols) 2.5 mg INHALATION Q2H PRN PRN PRN Reason: SHORTNESS OF BREATH Albuterol/Ipratropium (Duoneb) 3 ml INHALATION Q4H.RT [facility] Last Admin: 02/24/19 03:50 Dose: 3 ml Documented by: Amlodipine Besylate (Norvasc) 10 mg PO DAILY [facility] Last Admin: 02/23/19 11:15 Dose: 10 mg Documented by: Aspirin (Aspirin) 325 mg PO DAILY@0800 [facility] Last Admin: 02/23/19 08:45 Dose: 325 mg Documented by: Atorvastatin Calcium (Lipitor) 80 mg PO QHS [facility] Last Admin: 02/23/19 22:07 Dose: 80 mg Documented by: Carvedilol (Coreg) 25 mg PO BID [facility] Last Admin: 02/23/19 22:07 Dose: 25 mg Documented by: Chlorthalidone (Hygroton) 25 mg PO DAILY [facility] Last Admin: 02/23/19 12:03 Dose: 25 mg Documented by: Dextrose (D50w Syringe) 0 gm IV X1 PRN; Protocol PRN Reason: Hypoglycemia Enoxaparin Sodium (Lovenox) 40 mg SC DAILY@1000 [facility] Last Admin: 02/23/19 11:14 Dose: 40 mg Documented by: Glucagon () 1 mg IM .X1 PRN PRN Reason: Hypoglycemia Guaifenesin (Mucinex) 1,200 mg PO BID [facility] Last Admin: 02/23/19 22:07 Dose: 1,200 mg Documented by: Ceftriaxone Sodium (Rocephin) 1 gm in 50 mls @ 100 mls/hr IV Q24 [facility] Last Admin: 02/23/19 11:05 Dose: 100 mls/hr Documented by: Azithromycin 500 mg/ Dextrose 255 mls @ 250 mls/hr IV Q24 [facility] Stop: 02/24/19 11:02 Last Admin: 02/23/19 12:03 Dose: 250 mls/hr Documented by: Ibuprofen (Motrin) 400 mg PO Q4H PRN PRN PRN Reason: Mild Pain (1-3)/Temp > 100.7 F Insulin Glargine (Lantus (Bkc)) 300 units SC QHS [facility] Last Admin: 02/23/19 22:15 Dose: 300 units Documented by: Insulin Human Lispro (Humalog Kwikpen (Bkc)) 0 unit SC ACHS [facility]; Protocol Last Admin: 02/23/19 22:13 Dose: 4 u Documented by: Insulin Human Lispro (Humalog Kwikpen (Bkc)) 30 unit SC TIDCM [facility] Last Admin: 02/23/19 17:43 Dose: 30 u Documented by: Isosorbide Mononitrate (Imdur) 30 mg PO DAILY [facility] Last Admin: 02/23/19 11:14 Dose: 30 mg Documented by: Lisinopril (Zestril) 40 mg PO DAILY [facility] Last Admin: 02/23/19 11:15 Dose: 40 mg Documented by: Melatonin (Melatonin) 3 mg PO QHS PRN PRN PRN Reason: INSOMNIA Last Admin: 02/22/19 22:42 Dose: 3 mg Documented by: Metformin HCl (Glucophage) 1,000 mg PO BIDCM [facility] Last Admin: 02/23/19 17:44 Dose: 1,000 mg Documented by: Methylprednisolone (Solu-Medrol) 40 mg IV Q8 [facility] Last Admin: 02/24/19 06:25 Dose: 40 mg Documented by: Naproxen (Naprosyn) 500 mg PO BIDCM [facility] Last Admin: 02/23/19 17:44 Dose: 500 mg Documented by: Nitroglycerin (Nitrostat) 0.4 mg SUBLINGUAL Q5M PRN PRN Reason: chest pain Ondansetron HCl (Zofran) 4 mg IV Q8H PRN PRN PRN Reason: NAUSEA/VOMITING Pantoprazole Sodium (Protonix) 40 mg PO DAILY [facility] Last Admin: 02/23/19 11:15 Dose: 40 mg Documented by: Pioglitazone HCl (Actos) 15 mg PO DAILY [facility] Last Admin: 02/23/19 12:03 Dose: 15 mg Documented by: Pregabalin (Lyrica) 50 mg PO BID [facility] Last Admin: 02/23/19 22:07 Dose: 50 mg Documented by: Sodium Chloride () 10 - 40 ml IV UD PRN PRN Reason: SALINE FLUSH Last Admin: 02/23/19 22:12 Dose: 10 ml Documented by: Medical Necessity - Tobacco Use Smoking Status: Current every day smoker Tobacco Use: Pipe Assessment/Plan All Active Problems (Last Updated 02/22/19 @ 18:20 by Angel Goldberg DO) Pneumococcal pneumonia (Acute) Acute respiratory insufficiency (Acute) Patient is a 58-year-old gentleman with BMI of 8.2, diabetes mellitus type 2, history of tobacco use who presented with progressive shortness of breath chest x-ray obtained on admission demonstrated Mild left upper lobe pneumonia , admitted to regular nursing floor where patient has since been managed 1. Pneumonia: Suspected to be secondary to streptococcal pneumonia. Patient is admitted to regular floor. Patient placed on Rocephin and Zithromax. He was also placed on oxygen titrated to keep also is greater than 90 ~02/24/2019 patient still requiring high flow oxygen did discuss with patient the possibility of being discharged home with home oxygen and subsequent pulmonary follow-up 2. Morbid obesity with BMI of 48.2 weight loss advised 3. Suspected sleep apnea patient undergo sleep study as outpatient 4. Diabetes mellitus type 2 did continue with patient home regimen in addition to Accu-Cheks before meals and at bedtime with sliding scale coverage 5. Dyslipidemia-patient is on statin therapy, continued at home dose 6. Hypertension-blood pressure controlled, home medications continued with dose adjustment as needed 7. Tobacco dependence counseled on cessation, offered nicotine patch for tobacco cravings 8. DVT prophylaxis SC [place] Code Visit Inpatient E&M: 89154 Subs Hosp L2
[2019-02-24] MEDS: Insulin Lispro 100 UNIT/ML INSULN.PEN SC ×4 (09:01→22:15)
[2019-02-24] MEDS: Insulin Lispro 100 UNIT/ML INSULN.PEN 30 UNIT SC ×3 (09:01→17:06)
[2019-02-24] MEDS: Enoxaparin 40 MG/0.4 ML Syringe SC (09:02)
[2019-02-24] MEDS: Lisinopril 40 MG Tablet PO (09:06)
[2019-02-24] MEDS: Pantoprazole Sodium 40 MG Tablet PO (09:06)
[2019-02-24] MEDS: guaiFENesin 1,200 MG Tablet 1200 MG PO ×2 (09:06→22:14)
[2019-02-24] MEDS: amLODIPine 10 MG Tablet PO (09:06)
[2019-02-24] MEDS: Chlorthalidone 50 MG Tablet 25 MG PO (09:06)
[2019-02-24] MEDS: Naproxen 500 MG Tablet PO ×2 (09:06→17:05)
[2019-02-24] MEDS: metFORMIN HCl 1,000 MG Tablet 1000 MG PO ×2 (09:06→17:05)
[2019-02-24] MEDS: Aspirin 325 MG Tablet PO (09:06)
[2019-02-24] MEDS: Isosorbide Mononitrate 30 MG Tablet PO (09:07)
[2019-02-24] MEDS: Pioglitazone Hydrochloride 15 MG Tablet PO (09:07)
[2019-02-24] MEDS: Carvedilol 25 MG Tablet PO ×2 (09:07→22:14)
[2019-02-24] MEDS: Pregabalin 50 MG Capsule PO ×2 (09:10→22:14)
[2019-02-24] MEDS: 0.9% NaCl Peripheral Flush Adult/Peds IV ×3 (09:13→22:14)
--- NOTE | 2019-02-24 09:14 | NURSING ---
DR GOMES CONTACTED DR ABDUL FOR CONSULT
--- NOTE | 2019-02-24 09:20 | PCM.CONS.PUL ---
Reason for Consult Date of Consultation: 02/24/19 Reason for Consultation: COPD exacerbation History of Present Illness: The patient is a 58-year-old male, with a history as outlined below, who presented to the emergency department on February 22 with complaints of a productive cough and shortness of breath. The patient denies ever having been formally diagnosed with COPD previously. He has never completed pulmonary function studies, nor has he ever been evaluated by a educational assistant teacher. The patient does not currently utilize supplemental oxygen at his baseline, nor does he utilize inhalers of any kind in his home environment. The patient does have a smoking history of approximately 40 pack years, but over the last 4 to 5 years has only been smoking pipes, approximately 4 to 5/day. 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 In addition to the shortness of breath and cough, the patient did report the presence of nasal congestion and frequent sneezing upon admission to the hospital. On presentation to the emergency department, the patient was noted to be afebrile and mildly hypertensive. He was initially documented to be saturating 98% on room air. Laboratory evaluation revealed an elevated white blood cell count to 13,000. Chemistry profile was largely unrevealing. Lactate was within normal limits. Troponin was negative. Plain film chest x-ray revealed a possible left upper lobe infiltrate. The patient received aerosol treatments in the emergency department and was provided with antibiotics to cover for potential community-acquired pneumonia. He was subsequently admitted to the medical surgical floor for further management. Past Medical History Medical History: Medical History (Last Updated 02/22/19 @ 18:20 by Angel Goldberg DO) DM2 (diabetes mellitus, type 2) E11.9 HTN (hypertension) I10 Allergies No Known Allergies Allergy (Verified 02/22/19 16:34) Home Medications: Ambulatory Orders Medication Instructions Recorded Aspirin 325 mg PO DAILY@0800 03/09/18 Atorvastatin Calcium 80 mg PO QHS 03/09/18 Carvedilol 25 mg PO BID 03/09/18 Insulin Glargine,Hum.rec.anlog 300 unit SQ QHS 03/09/18 [Lantus] Insulin Lispro [Humalog] 30 unit SQ TIDCM 03/09/18 Lisinopril [Zestril] 40 mg PO DAILY 03/09/18 Metformin HCl 1,000 mg PO BID 03/09/18 Amlodipine [Norvasc] 10 mg PO DAILY 02/23/19 Chlorthalidone [Hygroton] 25 mg PO DAILY 02/23/19 Isosorbide Mononitrate [Isosorbide 30 mg PO DAILY 02/23/19 Mononitrate ER] Naproxen 500 mg PO BIDCM 02/23/19 Nitroglycerin (INPATIENT USE) 0.4 mg SL PRN PRN 02/23/19 [Nitrostat] Omeprazole [Prilosec] 20 mg PO DAILY 02/23/19 Pioglitazone [Actos] 15 mg PO DAILY 02/23/19 Pregabalin [Lyrica] 75 mg PO BID 02/23/19 Surgical History: Surgical History (Last Updated 02/22/19 @ 18:20 by Angel Goldberg DO) S/P hip replacement Z96.649 bilateral Surgical History: noncontributory Psychiatric History: No pertinent psych hx Lives: Alone Smoking Status: Current every day smoker Tobacco Use: Pipe Alcohol: None Drugs: None, Marijuana - *Family History Maternal History Items: - - no COPD Review of Systems Constitutional: Denies: Chills, Fever, Weight Change Eyes: Denies: Blurred vision, Double vision HEENT: Reports: Nasal Congestion. Denies: Head Aches, Sinus Congestion, Sinus Drainage Cardiovascular: Denies: Chest Pain, Palpitations Respiratory: Reports: Cough, Shortness of Breath Gastrointestinal: Denies: Abdominal Pain, Nausea, Vomiting Genitourinary: Denies: Dysuria Musculoskeletal: Denies: Joint Pain, Joint Tenderness Skin: Denies: Rash, Wounds Neurological: Denies: Numbness, Tingling, Focal weakness Psychiatric: Denies: Anxiety, Depression, Homicidal Ideations, Suicidal Ideations Hematologic/ Lymphatic: Denies: Easy Bruising, Easy Bleeding Patient Problems: Active and Suspected Problems (Last Updated 02/22/19 @ 18:20 by Angel Goldberg DO) Pneumococcal pneumonia (Acute) Acute respiratory insufficiency (Acute) COPD exacerbation (Suspected) Objective: The patient's most recent lab work, culture data and imaging studies have all been personally reviewed. Strep and urine Legionella antigens were both negative. Sputum culture is pending. - Physical Exam General: Alert, Cooperative, No apparent distress, - - Currently sitting in bedside recliner. HEENT: Atraumatic, PERRLA, Normocephalic Oral: No Gingival or Mucosal Lesions/ Ulcerations Neck: Supple, No Nodes, Trachea Midline Lungs: - - Globally diminished air movement throughout all lung fuller. No wheezes, rales or rhonchi appreciated. Cardiovascular: Regular rate, Regular Rhythm, Normal S1, Normal S2 Abdomen: Bowel Sounds Present, Soft, Non Tender, Obese Extremities: No cyanosis, No edema Skin: No breakdown Musculoskeletal: No Tenderness to Palpation of Joints or Extremities Lymphatic: No Cervical, Supraclavicular, or Inguinal Adenopathy Neurological: Cranial nerves II-XII grossly intact, Neuro grossly intact Psych/Mental Status: Normal Affect, Appropriate Vital Signs Temp Pulse Resp BP Pulse Ox 97.7 F L 88 22 H 132/68 H 92 02/24/19 02:15 02/24/19 06:46 02/24/19 06:46 02/24/19 02:15 02/24/19 06:46 Oxygen Flow Rate (L/min) 4 Oxygen Delivery Method Nasal Cannula Weight: 307 lb 15.772 oz Body Mass Index (BMI) 48.2 Intake and Output for Last 24 Hours 02/22/19 02/23/19 02/24/19 23:59 23:59 23:59 Intake Total 2864 / 3464 1500 / 1500 Balance 2864 / 3464 1500 / 1500 Microbiology Past 72 Hours 02/24/19 02:30 Streptococcus pneumoniae Antigen (M - Final Urine, Clean Catch 02/24/19 02:30 Legionella Antigen - Final Urine, Clean Catch 02/24/19 00:13 Gram Stain - Preliminary Sputum, Expectorated/Coughed Laboratory Tests Past 24 Hrs 02/24/19 02/24/19 05:52 05:52 WBC 14.3 H RBC 4.86 Hgb 13.7 Hct 42.2 MCV 86.8 MCH 28.2 MCHC 32.5 RDW Std Deviation 54.2 H RDW Coeff of Tariq 17.1 H Plt Count 132 L MPV 11.6 Immature Gran % (Auto) 1.100 H Neut % (Auto) 88.1 H Lymph % (Auto) 7.4 L Ness % (Auto) 3.2 Eos % (Auto) 0.1 Baso % (Auto) 0.1 Absolute Neuts (auto) 12.6 H Absolute Lymphs (auto) 1.05 Nucleated RBC % 0 Sodium 134 L Potassium 4.5 Chloride 96 L Carbon Dioxide 28.0 Anion Gap 10 BUN 58 H Creatinine 1.51 H Estim Creat Clear Calc 51.07 Est GFR (MDRD) Af Amer 62 Est GFR (MDRD) Non-Af 51 L BUN/Creatinine Ratio 38.4 H Glucose 273 H Calcium 8.8 Magnesium 2.1 POC Glucose 02/24/19 02/23/19 02/23/19 02:17 22:05 16:57 POC Glucose 274 H 273 H 361 H 02/23/19 11:20 POC Glucose 363 H Clinical Impression(s) from Imaging Studies Chest X-Ray 02/22/19 16:57 IMPRESSION: Mild left upper lobe pneumonia is suspected. Electronically Signed: Shaun Cui MD at 17:29 EDT Tel , Service support , Assessment/Plan All Active Problems (Last Updated 02/22/19 @ 18:20 by Angel Goldberg DO) Pneumococcal pneumonia (Acute) Acute respiratory insufficiency (Acute) RECOMMENDATIONS: 1. Continue scheduled bronchodilators, steroids and antibiotics as ordered. 2. Await sputum culture results. 3. Obtain MRSA screen and respiratory viral panel. 4. Wean supplemental oxygen to maintain saturations at or above 90%. 5. Encourage incentive spirometer use and mobilize patient as tolerated. 6. Perform walking oximetry study prior to consideration for discharge from the hospital. Anticipate home-going oxygen need. 7. Outpatient PFTs and pulmonary follow-up was recommended within 2 weeks of discharge from the hospital. IMPRESSIONS: 1. Acute hypoxemic respiratory insufficiency Potentially related to COPD exacerbation in the setting of community-acquired pneumonia. However, the patient is never undergone formal pulmonary function studies to actually confirm a diagnosis of obstructive lung disease. Nevertheless, the patient does have an extensive smoking history and I would agree with continuing bronchodilators, steroids and antibiotics as ordered. Wean supplemental oxygen to maintain saturations at or above 90%. I am going to provide the patient with an incentive spirometer and PEP to be utilized frequently. Complete smoking cessation was strongly advised. I am also going to plan to check an MRSA screen and respiratory viral panel. The patient needs to complete a walking oximetry test prior to consideration for discharge from the hospital. He ideally should follow-up in the pulmonary medicine clinic within 2 weeks of his discharge. Orders for baseline pulmonary function studies can be obtained at that time. 2. Long-standing tobacco dependency As noted above, recommend outpatient pulmonary function studies to quantify lung function. Smoking cessation is advisable. Nicotine replacement therapy can be offered to the patient while he is admitted to the hospital. 3. Morbid obesity/diabetes mellitus/hypertension/hyperlipidemia/GERD Complicates care, management, recovery and prognosis. Okay to continue home medications as indicated. This note was generated with [employer] dictation software. It may contain incorrect words, spelling, and punctuation that were not noted in checking the note before signing. Code Visit Inpatient E&M: 22921 Init Hosp L3
[2019-02-24] MEDS: Ceftriaxone 1 GM/50 ML BAG IV (10:42)
[2019-02-24 11:06] LABS: Bedside Glucose 276 mg/dL (70-110)
[2019-02-24 11:15] LABS: Bedside Glucose 382 mg/dL (70-110)
[2019-02-24 13:31] LABS: Bedside Glucose 307 mg/dL (70-110)
[2019-02-24 16:15] LABS: Bedside Glucose 298 mg/dL (70-110)
[2019-02-24 17:30] LABS: M R Staph aureus DNA By PCR Negative (Negative); Probe Check PASS; Specimen Processing Control PASS
[2019-02-24] MEDS: Atorvastatin Calcium 80 MG Tablet PO (22:14)
[2019-02-24 22:25] LABS: Bedside Glucose 329 mg/dL (70-110)
[2019-02-24] MEDS: Nitroglycerin (INPATIENT USE) 0.4 MG TAB.SUBL SUBLINGUAL ×2 (23:30→23:38)
--- NOTE | 2019-02-24 23:47 | EKG12_ITS ---
Test Reason : CHEST PAIN Blood Pressure : / mmHG Vent. Rate : 072 BPM Atrial Rate : 072 BPM P-R Int : 198 ms QRS Dur : 096 ms QT Int : 370 ms P-R-T Axes : 059 -04 065 degrees QTc Int : 405 ms Normal sinus rhythm with sinus arrhythmia Septal infarct , age undetermined Abnormal ECG When compared with ECG of 22-FEB-2019 17:01, MANUAL COMPARISON REQUIRED, DATA IS UNCONFIRMED Confirmed by RHONDA COSTELLO ([id number]), scientific publications editor GAL COY ([id number]) on 02/27/2019 8:59:34 AM Referred By: Angel Goldberg Confirmed By:RHONDA COSTELLO
[2019-02-25] VITALS (22 sets, daily range): BP systolic 98–133; BP diastolic 40–75; PULSE 68–96; RESP 18–22; TEMP 36.3–37.2; O2SAT 91–96
--- NOTE | 2019-02-25 01:08 | CCHN_ITS ---
Hospitalist Note The patient complained of midsternal chest pain radiation to the throat which was relieved with 2 doses of sublingual nitro. Patient was admitted for tightness of breath secondary to left upper lobe pneumonia, strep pneumonia. Tonight he complained of midsternal chest pain with radiation to throat along with shortness of breath. There is no increase in shortness of breath. The patient has a history of coronary artery disease and a stent in the past. Twelve-lead EKG was done and shows normal sinus rhythm with sinus arrhythmia. There is no significant ST-T changes with compared to EKG of 22 February. First troponin is elevated 1089. Admitting troponin was normal. Cycle troponin enzymes and repeat EKG. 2D echo is ordered. Patient loaded with Plavix and 1 dose of Lovenox 1 mg/kg body weight given. Patient is already on aspirin, Coreg, lisinopril and isosorbide mononitrate. Patient is started on nitro 1% ointment every 6 hourly. Cardiology consult in the morning. Microbiology Past 72 Hours 02/24/19 00:13 Sputum, Expectorated/Coughed Gram Stain - Final 02/24/19 02:30 Urine, Clean Catch Streptococcus pneumoniae Antigen (M - Final 02/24/19 02:30 Urine, Clean Catch Legionella Antigen - Final Laboratory Results 02/25/19 00:28: Troponin I 0.089 H Clinical Impression(s) from Imaging Studies Chest X-Ray 02/22/19 16:57 IMPRESSION: Mild left upper lobe pneumonia is suspected. Code Visit Inpatient E&M: 60225 [facility] Hosp L1
[2019-02-25] MEDS: Enoxaparin 150 MG/ML Syringe 140 MG SC ×2 (01:37→23:14)
[2019-02-25] MEDS: Clopidogrel Bisulfate 300 MG Tablet PO (01:37)
--- NOTE | 2019-02-25 01:40 | NURSING ---
Report called to Florentin Ochoa RN. Pt being transferred to PCU 122 for elevated troponin per Dr. Christianson.
[2019-02-25] MEDS: Nitroglycerin Oint 1 INCH PACKET TRANSDERM. ×4 (02:24→18:03)
[2019-02-25] MEDS: Ipratropium/Albuterol Sulfate 3 ML AMPUL.NEB INHALATION ×6 (03:30→22:39)
[2019-02-25] MEDS: 0.9% NaCl Peripheral Flush Adult/Peds IV ×4 (05:21→23:14)
--- NOTE | 2019-02-25 05:55 | ECHOCS_ITS ---
Reason For Study: CHEST PAIN Procedure This was a 2D Doppler, Color Flow transthoracic echocardiogram. The study was technically difficult. Due to body habitus. Contrast injection was performed. Exam performed in department. Left Ventricle Normal LV size. Mild concentric left ventricular hypertrophy. Segmental dysfunction with preserved ejection fraction (see wall motion). The estimated ejection fraction is 65 %. Transmitral doppler flow suggestive of impaired relaxation of left ventricle. Mid-Anterior : Hypokinetic. Mid- anteroseptal : Hypokinetic. Anterior [place] : Hypokinetic. Septal [place] : Hypokinetic. Right Ventricle Normal RV size. Normal systolic function. Atria The left atrium is mildly enlarged. Normal right atrium. No doppler evidence for ASD. Mitral Valve There is no mitral annular calcification. Normal mitral valve. Trivial mitral valve insufficiency. Tricuspid Valve Normal tricuspid valve. Trivial tricuspid valve insufficiency. Unable to estimate RV systolic pressure/pulmonary artery pressure due to technically difficult study. Aortic Valve The aortic valve is not well visualized. Mild focal aortic valve calcification. Pulmonic Valve The pulmonic valve is not well visualized. Great Vessels Normal sized aortic root. Pericardium/Pleural No pericardial effusion. Medication Diluted definity 5.0ml given slow IV push to enhance endocardial definition. MMode/2D Measurements & Calculations LVIDd: 4.7 cm IVSd: 1.4 cm Ao root diam: 3.2 cm LVIDs: 3.3 cm LVPWd: 1.5 cm RVDd: 3.2 cm FS: 30.6 % LAV(MOD-bp): 62.8 ml LA A4 area: 20.5 cm2 LA dimension(2D): 5.0 cm LAV(MOD-bp) Indexed: 25.9 ml/m2 LAV(MOD-sp2): 62.4 ml LAV(MOD-sp4): 60.0 ml Time Measurements MV dec time: 0.19 sec Doppler Measurements & Calculations MV E max dom: 91.2 cm/sec Lat Peak E' Dom: 6.9 cm/sec Med Peak E' Dom: 6.0 cm/sec MV A max dom: 99.7 cm/sec E/E' lat: 13.2 E/E' med: 15.2 MV E/A: 0.91 Ao V2 max: 171.0 cm/sec LV V1 max: 101.4 cm/sec PA V2 max: 196.1 cm/sec Ao max P.7 mmHg LV V1 max P.1 mmHg Interpretation Summary The study was technically difficult. Contrast injection was performed. Segmental dysfunction with preserved ejection fraction (see wall motion). The estimated ejection fraction is 65 %. Mild concentric left ventricular hypertrophy. The left atrium is mildly enlarged. Trivial mitral valve insufficiency. Trivial tricuspid valve insufficiency. Mild focal aortic valve calcification. Unable to estimate RV systolic pressure/pulmonary artery pressure due to technically difficult study. Transmitral doppler flow suggestive of impaired relaxation of left ventricle Ordering Physician: Kehinde Christianson Referring Physician: Manuelito Hughes Performed By: Africa Davidson RDCS, RVT
--- NOTE | 2019-02-25 05:55 | EKG12_ITS ---
Test Reason : AM EKG Blood Pressure : / mmHG Vent. Rate : 081 BPM Atrial Rate : 081 BPM P-R Int : 202 ms QRS Dur : 088 ms QT Int : 362 ms P-R-T Axes : 056 -23 000 degrees QTc Int : 420 ms Normal sinus rhythm Anteroseptal infarct , age undetermined Abnormal ECG When compared with ECG of 25-FEB-2019 00:11, MANUAL COMPARISON REQUIRED, DATA IS UNCONFIRMED Confirmed by RHONDA COSTELLO ([id number]), city editor GAL COY ([id number]) on 02/27/2019 9:06:49 AM Referred By: Angel Goldberg Confirmed By:RHONDA COSTELLO
[2019-02-25 06:28] LABS: Basophil# 0.02 X10^3/uL; Basophil% 0.2 % (0-1); Hematocrit 41.7 % (40-54); Hemoglobin 13.4 g/dL (13.0-16.5); Lymphocyte % 7.8 % (19-41); Mean Corp Hgb Conc 32.1 g/dL (32-36); Mean Corpuscular Hgb 28.2 pg (27.0-32.0); Mean Corpuscular Volume 87.6 fL (80-94); Mean Platelet Vol. 10.7 fl (6.2-12.0); Monocyte# 0.51 X10^3/uL; NRBC Flagged by Analyzer 0 % (0-5); Neutrophil % 86.4 % (47-70); Platelet Count 129 K/mm3 (150-450); RBC Distribution Width CV 17.2 % (11.6-14.6); RBC Distribution Width SD 54.8 fl (35.1-43.9); Red Blood Count 4.76 M/mm3 (4.6-6.2); White Blood Count 12.7 K/mm3 (4.4-11.0)
[2019-02-25 07:03] LABS: Anion Gap 3 (5-15); BUN 70 mg/dL (7-18); Calcium,Total 8.7 mg/dL (8.5-10.1); Chloride 99 mmol/L (98-107); Cholesterol 177 mg/dL (200); Creatinine, Serum 1.59 mg/dL (0.70-1.30); EST Glomerular Filtration Rate 48 mL/min (>60); Est Glom Filt Rate - Afr Amer 58 mL/min (>60); Glucose 207 mg/dL (74-106); High Density Lipoprotein 32 mg/dL; Potassium 4.5 mmol/L (3.5-5.1); Sodium Level 133 mmol/L (136-145); Thyroid Stim Hormone (TSH) 0.26 uIU/mL (0.358-3.74); Triglycerides 203 mg/dL; Very Low Density Lipoprotein 41 mg/dL (5-40)
[2019-02-25 08:41] LABS: Bedside Glucose 218 mg/dL (70-110)
[2019-02-25 09:03] LABS: T4 Free Direct 0.78 ng/dL (0.76-1.46)
[2019-02-25] MEDS: Aspirin 325 MG Tablet PO (09:14)
[2019-02-25] MEDS: Insulin Lispro 100 UNIT/ML INSULN.PEN SC ×3 (09:14→23:08)
[2019-02-25] MEDS: Insulin Lispro 100 UNIT/ML INSULN.PEN 30 UNIT SC ×3 (09:15→17:01)
--- NOTE | 2019-02-25 09:19 | PCM.CONS.C ---
<Ward Cordero - Last Filed: 02/25/19 12:55> Problem List (1) Chest pain Status: Acute Qualifiers: Chest pain type: unspecified Qualified Code(s): R07.9 - Chest pain, unspecified Reason for Consult Date of Consultation: 02/25/19 Reason for Consultation: Chest pain History of Present Illness: The patient is a 58 year old M who has a history of coronary artery disease status post stenting x2 to mid LAD in October 2001, hypertension, and diabetes mellitus type 2. He presented to [facility] Emergency Department on 02/22/2019 for cough and shortness of breath. He underwent a chest x-ray that showed suspected mid left upper lobe pneumonia. His laboratory work revealed a WBC of 13.3, creatinine of 1.23, and negative troponin. He was noted to have an oxygen saturation in the low 80s and was placed on supplemental oxygen. He was started on broad-spectrum antibiotics and admitted for hypoxia and a community acquired pneumonia. Since admission patient has been undergoing pulmonary therapy with antibiotics and supplemental oxygen. Last night he noted center chest pain while sitting in his bed after breathing treatment. He rated this a 6 out of 10 at that time. He denied any nausea, diaphoresis, arm pain, jaw pain, or neck pain. This radiated to his throat region. He is unsure but believes that his shortness of breath was slightly worse during that time. He received 2 nitroglycerin sublingual tablets and his pain resolved. He underwent an EKG that showed normal sinus rhythm with previous infarct of undetermined age without acute ST changes. This was unchanged from ER ECG. He underwent laboratory evaluation in which his troponin was noted to be mildly elevated at 0.089. Cardiology was consulted for further evaluation. Past Medical History Allergies/Adverse Reactions: Allergies No Known Allergies Allergy (Verified 02/22/19 16:34) Home Medications: Ambulatory Orders Medication Instructions Recorded Aspirin 325 mg PO DAILY@0800 03/09/18 Atorvastatin Calcium 80 mg PO QHS 03/09/18 Carvedilol 25 mg PO BID 03/09/18 Insulin Glargine,Hum.rec.anlog 300 unit SQ QHS 03/09/18 [Lantus] Insulin Lispro [Humalog] 30 unit SQ TIDCM 03/09/18 Lisinopril [Zestril] 40 mg PO DAILY 03/09/18 Metformin HCl 1,000 mg PO BID 03/09/18 Amlodipine [Norvasc] 10 mg PO DAILY 02/23/19 Chlorthalidone [Hygroton] 25 mg PO DAILY 02/23/19 Isosorbide Mononitrate [Isosorbide 30 mg PO DAILY 02/23/19 Mononitrate ER] Naproxen 500 mg PO BIDCM 02/23/19 Nitroglycerin (INPATIENT USE) 0.4 mg SL PRN PRN 02/23/19 [Nitrostat] Omeprazole [Prilosec] 20 mg PO DAILY 02/23/19 Pioglitazone [Actos] 15 mg PO DAILY 02/23/19 Pregabalin [Lyrica] 75 mg PO BID 02/23/19 Past Medical History (Chronic Problems): Chronic Problems (Last Updated 02/25/19 @ 13:01 by Ward Cordero NP-C) Atherosclerosis of zuni coronary artery of zuni heart without angina pectoris (Chronic) Stenting x2 to mid LAD with vessel dissection on 11/03/2001; Surgical History: noncontributory Psychiatric History: No pertinent psych hx - *Family History Maternal Family History: Family History (Last Updated 02/25/19 @ 09:28 by Ward Cordero NP-C) Mother Alzheimer disease Father CAD (coronary artery disease), Onset Age: 59 History Items: - - no COPD Lives: Alone Smoking Status: Current every day smoker Tobacco Use: Pipe Alcohol: None Drugs: None, Marijuana Review of Systems - Review of Systems General: Denies: Fever Cardiovascular: Denies: Chest Discomfort, Chest Discomfort at Rest, Chest Discomfort with Exertion, Chest Pressure, Chest Tightness, Chest Heaviness, Shortness of Breath, PND, Peripheral Edema, Palpitations, Lightheadedness, Dizziness, Near Syncope, Syncope Respiratory: Denies: Cough Neurological: Denies: Dizziness Subjectve: Patient states of feeling well this morning. He states his chest pain last night resolved after 2 nitroglycerin tablets. He denies any chest pain or worsening shortness of breath. Objective: Vital Signs Temp Pulse Resp BP Pulse Ox 97.5 F L 89 18 125/63 H 92 02/25/19 05:25 02/25/19 07:16 02/25/19 05:25 02/25/19 05:25 02/25/19 05:25 Oxygen Flow Rate (L/min) 4 Oxygen Delivery Method Nasal Cannula Weight: 307 lb 15.772 oz Body Mass Index (BMI) 48.2 Intake and Output for Last 24 Hours 02/23/19 02/24/19 02/25/19 23:59 23:59 23:59 Intake Total 2864 / 3464 5028 / 5028 Balance 2864 / 3464 5028 / 5028 General: Healthy Appearing, Awake, Alert, Oriented x 3 Oral: Moist Mucosa Neck: No JVD Lungs: Diminished Tyler Bases Cardiovascular: Regular Rhythm, Normal S1, Normal S2, No Murmurs, No Rubs, No Gallops Vascular: No Carotid Bruits Abdomen: Bowel Sounds Present, Soft, Obese Extremities: No Cyanosis, No Clubbing, No edema, Normal Capillary Refill Musculoskeletal: No Erythema Skin: No Rashes Neurological: No Focal Motor or Sensory Deficit Psych/Mental Status: Appropriate, Normal Affect 02/25/19 00:28: Troponin I 0.089 H 02/25/19 03:34: Troponin I 0.015 02/25/19 06:15: WBC 12.7 H, RBC 4.76, Hgb 13.4, Hct 41.7, MCV 87.6, MCH 28.2, MCHC 32.1, Plt Count 129 L, MPV 10.7, Immature Gran % (Auto) 1.600 H, Neut % (Auto) 86.4 H, Lymph % (Auto) 7.8 L, Cotton % (Auto) 4.0, Eos % (Auto) 0.0, Baso % (Auto) 0.2, Absolute Neuts (auto) 11.0 H, Nucleated RBC % 0 02/25/19 06:15: Sodium 133 L, Potassium 4.5, Chloride 99, Carbon Dioxide 31.0, Anion Gap 3 L, BUN 70 H, Creatinine 1.59 H, Est GFR (MDRD) Af Amer 58 L, Est GFR (MDRD) Non-Af 48 L, BUN/Creatinine Ratio 44.0 H, Glucose 207 H, Calcium 8.7, Triglycerides 203 H, Cholesterol 177, LDL Cholesterol 104, VLDL Cholesterol 41 H, HDL Cholesterol 32 L 02/25/19 06:15: Troponin I 0.076 H Rhythm: EKG: ECHO: Stress Test: Cardiac Cath: 11/03/2001: Coronary angiography Left main coronary artery: Normal vessel Left anterior descending coronary artery: Proximal left anterior descending appears normal. 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 Diagonal branches is a long but somewhat thin vessel with no significant disease. At the apex, the diagonal provides collateral flow to the distal left anterior descending. These are grade 1 collaterals. Left circumflex coronary artery: The circumflex is nondominant and within normal limits. Right coronary artery: The right coronary artery is normal size and dominant. There are minor irregularities only. There is no significant stenosis. Left ventriculogram: The left ventriculogram shows mild hypokinesis of the anterior wall and apex and ejection fraction remains normal. There was no mitral regurgitation. PCI 11/03/2001: Mid LAD dissection area stented with a 2.75 x 13 mm Penta stent deployed 8 atmospheres and post dilated to 11 robin. The more proximal disease in the level of the complete occlusion was then stented with a 3.0 x 23 mm Penta, deployed at 9 robin and postdilated to [address] Surgery: Holter monitor: EPS: PPM: CXR: Chest CT Scan: Assessment/Plan 1. Chest pain Patient's chest pain, slightly abnormal troponin, and previous history of stenting to mid LAD x2 in October 2001 raises suspicion for coronary artery disease related component. This may be demand related given his current pulmonary status. He denies any reoccurring/scheduled cardiology follow-up since stenting. He denies any recent cardiology testing such as echocardiogram or stress test. His echocardiogram is currently pending. He was loaded with Plavix and give subcutaneous Lovenox. He is already on statin medication, ALLISON inhibitor, and beta-armida. He will continue his current medical therapy. We will consider heart catheterization once his pulmonary status is improved and he can tolerate laying flat without increasing shortness of breath. His kidney function is on an upward trend and he may require pre-and post hydration and monitoring kidney function closely. 2. Atherosclerotic Coronary Artery Disease Patient underwent a heart catheterization within the [facility] system on 11/03/2001. This showed a left main with a normal vessel. Occlusion of the mid LAD. Left circumflex which was nondominant and within normal limits. RCA that was a dominant vessel with no significant stenosis. During his heart catheterization he was noted to have a mid LAD dissection after ballooning. This was stented. Just proximal of the first stent he underwent a second stent. Other records outside of this heart catheterization are not available for review. Patient does acknowledge very limited cardiology outpatient follow-up. Thank you for allowing us to participate in the patients plan of care, if you have any questions please do not hesitate to call. This note was generated using a voice recognition system and there may be incorrect words, spelling or punctuation that were not noted when reviewing the office note prior to saving. <IkerStu - Last Filed: 02/25/19 19:29> Reason for Consult History of Present Illness: [] Past Medical History - *Family History Maternal Family History: Family History (Last Updated 02/25/19 @ 09:28 by TWIN DensonC) Mother Alzheimer disease Father CAD (coronary artery disease), Onset Age: 59 Objective: Vital Signs Temp Pulse Resp BP Pulse Ox 98.8 F 84 18 107/60 91 02/25/19 18:00 02/25/19 18:03 02/25/19 18:00 02/25/19 18:03 02/25/19 18:00 Oxygen Flow Rate (L/min) 4 Oxygen Delivery Method Nasal Cannula Weight: 307 lb 15.772 oz Body Mass Index (BMI) 48.2 Intake and Output for Last 24 Hours 02/23/19 02/24/19 02/25/19 23:59 23:59 23:59 Intake Total 2864 / 3464 5028 / 5028 1340 / 1340 Balance 2864 / 3464 5028 / 5028 1340 / 1340 02/25/19 00:28: Troponin I 0.089 H 02/25/19 03:34: Troponin I 0.015 02/25/19 06:15: WBC 12.7 H, RBC 4.76, Hgb 13.4, Hct 41.7, MCV 87.6, MCH 28.2, MCHC 32.1, Plt Count 129 L, MPV 10.7, Immature Gran % (Auto) 1.600 H, Neut % (Auto) 86.4 H, Lymph % (Auto) 7.8 L, Cotton % (Auto) 4.0, Eos % (Auto) 0.0, Baso % (Auto) 0.2, Absolute Neuts (auto) 11.0 H, Nucleated RBC % 0 02/25/19 06:15: Sodium 133 L, Potassium 4.5, Chloride 99, Carbon Dioxide 31.0, Anion Gap 3 L, BUN 70 H, Creatinine 1.59 H, Est GFR (MDRD) Af Amer 58 L, Est GFR (MDRD) Non-Af 48 L, BUN/Creatinine Ratio 44.0 H, Glucose 207 H, Calcium 8.7, Triglycerides 203 H, Cholesterol 177, LDL Cholesterol 104, VLDL Cholesterol 41 H, HDL Cholesterol 32 L 02/25/19 06:15: B-Natriuretic Peptide 40.2 02/25/19 06:15: Troponin I 0.076 H Rhythm: EKG: ECHO: Stress Test: Cardiac Cath: PCI: CT Surgery: Holter monitor: EPS: PPM: CXR: Chest CT Scan: Assessment/Plan Date: 02-25-19 Addendum: The patient was independently interviewed and examined. The patient noted a past cardiovascular history including concerns of underlying CAD, CA, and PCI. The details of his past cardiac history with respect to his previous cardiac catheterization/PCI have been retrieved and are as noted above. The patient's stated that he had followed with [facility] cardiology. The [facility] cardiology records are being requested for continuity of care purposes. However, the patient states other than follow-up noninvasive studies he has not had to return to the cardiac catheterization laboratory since his initial cardiac catheterization and PCI. The patient presented to the hospital with concerns of shortness of breath and dyspnea. He was found to have evidence of COPD exacerbation and possible pneumonia. He is being treated for such. During his hospitalization he demonstrated chest discomfort which she stated was central chest discomfort with somewhat of a sharp characteristic to it. He denied any radiation. He noted no acute change in his respiratory status or associated nausea, emesis, or diaphoresis. He was evaluated and treated with nitroglycerin sublingual x2 with improvement. He was further evaluated with cardiac enzymes which have noted indeterminant troponin I levels x2. His ECG demonstrated sinus rhythm with an anteroseptal CA pattern of indeterminate age which did not demonstrate any acute changes. He has subsequently undergone further evaluation with a transthoracic echocardiogram. This did demonstrate findings compatible with left ventricular regional wall motion abnormalities in the anterior and anteroseptal and apical distributions. Overall LV systolic function/LVEF was preserved at approximately 65%. On physical examination the patient demonstrates that his lungs have diminished breath sounds bilaterally. His cardiovascular exam demonstrated a regular rhythm with a normal S1-S2 with distant heart tones with no obvious murmurs rubs or gallops. His lower extremities did demonstrate an element of mild bilateral lower extremity peripheral pitting edema in the ankle area. At the present time the patient has concerns with respect to chest discomfort concerning for underlying angina pectoris as well as indeterminate troponin I levels. It is unclear at this time whether his indeterminate troponin I levels are related to a secondary event from his underlying COPD and myocardial supply demand mismatch versus a separate primary acute coronary syndrome type of event. At the moment the patient will continue to be monitored. He will continue cardiovascular medical therapy as deemed appropriate. This will include agents such as aspirin, antiplatelets, nitrates, beta-blockers, anticoagulants, as deemed appropriate. The patient will be considered for future evaluation with diagnostic cardiac catheterization. However it may be reasonable to attempt to improve his overall pulmonary status prior to proceeding with such barring an urgent/emergent event. In the meantime he does need continued monitoring of his cardiovascular risk factors such as lipid profile, blood pressure, etc. He will need continue evaluation care per internal medicine and pulmonology. This will be for his underlying pulmonary disease process. The above was discussed with the patient, Dr. Noble, and Dr. Manzo. They were agreeable to the aforementioned evaluation care plan. The patient's case is also been discussed with Ward Cordero CNP. This note was generated using a voice recognition system and there may be incorrect words, spelling or punctuation that were not noted when reviewing the office note prior to saving.
[2019-02-25] MEDS: Chlorthalidone 50 MG Tablet 25 MG PO (10:36)
[2019-02-25] MEDS: Pantoprazole Sodium 40 MG Tablet PO (10:37)
[2019-02-25] MEDS: Carvedilol 25 MG Tablet PO ×2 (10:37→23:07)
[2019-02-25] MEDS: Isosorbide Mononitrate 30 MG Tablet PO (10:37)
[2019-02-25] MEDS: Clopidogrel Bisulfate 75 MG Tablet PO (10:37)
[2019-02-25] MEDS: amLODIPine 10 MG Tablet PO (10:37)
[2019-02-25] MEDS: Lisinopril 40 MG Tablet PO (10:38)
[2019-02-25] MEDS: guaiFENesin 1,200 MG Tablet 1200 MG PO ×2 (10:38→23:09)
[2019-02-25] MEDS: Pregabalin 50 MG Capsule PO ×2 (10:47→23:10)
[2019-02-25] MEDS: Ceftriaxone 1 GM/50 ML BAG IV (10:47)
[2019-02-25 12:00] LABS: BNP,B-Type NATRIURETIC PEPTIDE 40.2 pg/mL (0-100)
--- NOTE | 2019-02-25 12:26 | PCM.PN.PUL ---
Patient Problems: Active and Suspected Problems (Last Updated 02/25/19 @ 13:01 by Ward Cordero NP-C) Pneumococcal pneumonia (Acute) Acute respiratory insufficiency (Acute) COPD exacerbation (Suspected) Chest pain (Acute) Subjective: The patient was seen and examined at the bedside this morning. Events from the last 24 hours have been reviewed. The patient is currently afebrile, hemodynamically stable and maintaining appropriate oxygen saturations on 4 L/min via nasal cannula. The patient did develop chest pain overnight, which was treated with sublingual nitro. Troponins were subsequently cycled. Cardiology has been consulted to evaluate the patient. Objective: The patient's most recent lab work, culture data and imaging studies have all been personally reviewed. Respiratory viral panel was negative. Strep and urine Legionella antigens were negative. Expectorated sputum culture appears to be normal respiratory woody. - Physical Exam General: Alert, Cooperative, No apparent distress HEENT: Atraumatic, PERRLA, Normocephalic Oral: No Gingival or Mucosal Lesions/ Ulcerations Neck: Supple, No Nodes, Trachea Midline Lungs: No rhonchi, No wheeze, No rales, Diminished Cardiovascular: Regular rate, Regular Rhythm, Normal S1, Normal S2 Abdomen: Bowel Sounds Present, Soft, Non Tender, Obese Extremities: No clubbing, No cyanosis, No edema Skin: No breakdown Musculoskeletal: No Tenderness to Palpation of Joints or Extremities Lymphatic: No Cervical, Supraclavicular, or Inguinal Adenopathy Neurological: Cranial nerves II-XII grossly intact, Neuro grossly intact Psych/Mental Status: Normal Affect, Appropriate Vital Signs Temp Pulse Resp BP Pulse Ox 99.0 F 82 20 H 133/69 H 91 02/25/19 09:25 02/25/19 11:01 02/25/19 11:01 02/25/19 09:25 02/25/19 09:25 Oxygen Flow Rate (L/min) 4 Oxygen Delivery Method Nasal Cannula Weight: 307 lb 15.772 oz Body Mass Index (BMI) 48.2 Intake and Output for Last 24 Hours 02/23/19 02/24/19 02/25/19 23:59 23:59 23:59 Intake Total 2864 / 3464 5028 / 5028 Balance 2864 / 3464 5028 / 5028 Microbiology Past 72 Hours 02/24/19 00:13 Gram Stain - Final Sputum, Expectorated/Coughed Respiratory Culture - Preliminary Appears to be normal respiratory woody. Further studies to follow. 02/24/19 13:15 Respiratory Panel (PCR) - Final Mucosa - Nose 02/24/19 02:30 Streptococcus pneumoniae Antigen (M - Final Urine, Clean Catch 02/24/19 02:30 Legionella Antigen - Final Urine, Clean Catch Laboratory Tests Past 24 Hrs 02/24/19 02/25/19 02/25/19 13:15 00:28 03:34 WBC RBC Hgb Hct MCV MCH MCHC RDW Std Deviation RDW Coeff of Tariq Plt Count MPV Immature Gran % (Auto) Neut % (Auto) Lymph % (Auto) [place] % (Auto) Eos % (Auto) Baso % (Auto) Absolute Neuts (auto) Absolute Lymphs (auto) Nucleated RBC % Sodium Potassium Chloride Carbon Dioxide Anion Gap BUN Creatinine Estim Creat Clear Calc Est GFR (MDRD) Af Amer Est GFR (MDRD) Non-Af BUN/Creatinine Ratio Glucose Calcium Troponin I 0.089 H 0.015 B-Natriuretic Peptide Triglycerides Cholesterol LDL Cholesterol VLDL Cholesterol HDL Cholesterol TSH Free T4 MRSA (PCR) Negative 02/25/19 02/25/19 02/25/19 06:15 06:15 06:15 WBC 12.7 H RBC 4.76 Hgb 13.4 Hct 41.7 MCV 87.6 MCH 28.2 MCHC 32.1 RDW Std Deviation 54.8 H RDW Coeff of Tariq 17.2 H Plt Count 129 L MPV 10.7 Immature Gran % (Auto) 1.600 H Neut % (Auto) 86.4 H Lymph % (Auto) 7.8 L [place] % (Auto) 4.0 Eos % (Auto) 0.0 Baso % (Auto) 0.2 Absolute Neuts (auto) 11.0 H Absolute Lymphs (auto) 1.00 Nucleated RBC % 0 Sodium 133 L Potassium 4.5 Chloride 99 Carbon Dioxide 31.0 Anion Gap 3 L BUN 70 H Creatinine 1.59 H Estim Creat Clear Calc 48.50 Est GFR (MDRD) Af Amer 58 L Est GFR (MDRD) Non-Af 48 L BUN/Creatinine Ratio 44.0 H Glucose 207 H Calcium 8.7 Troponin I B-Natriuretic Peptide 40.2 Triglycerides 203 H Cholesterol 177 LDL Cholesterol 104 VLDL Cholesterol 41 H HDL Cholesterol 32 L TSH 0.26 L Free T4 MRSA (PCR) 07/31/19 07/31/19 06:15 06:15 WBC RBC Hgb Hct MCV MCH MCHC RDW Std Deviation RDW Coeff of Tariq Plt Count MPV Immature Gran % (Auto) Neut % (Auto) Lymph % (Auto) [place] % (Auto) Eos % (Auto) Baso % (Auto) Absolute Neuts (auto) Absolute Lymphs (auto) Nucleated RBC % Sodium Potassium Chloride Carbon Dioxide Anion Gap BUN Creatinine Estim Creat Clear Calc Est GFR (MDRD) Af Amer Est GFR (MDRD) Non-Af BUN/Creatinine Ratio Glucose Calcium Troponin I 0.076 H B-Natriuretic Peptide Triglycerides Cholesterol LDL Cholesterol VLDL Cholesterol HDL Cholesterol TSH Free T4 0.78 MRSA (PCR) POC Glucose 02/25/19 02/24/19 02/24/19 08:04 22:11 16:07 POC Glucose 218 H 329 H 298 H 02/24/19 13:17 POC Glucose 307 H Clinical Impression(s) from Imaging Studies Chest X-Ray 02/22/19 16:57 IMPRESSION: Mild left upper lobe pneumonia is suspected. Electronically Signed: Shaun Cui MD at 17:29 EDT Tel , Service support , Medical Necessity - Tobacco Use Smoking Status: Current every day smoker Tobacco Use: Pipe Assessment/Plan All Active Problems (Last Updated 02/25/19 @ 13:01 by Ward Cordero, OVERCASTER-C) Pneumococcal pneumonia (Acute) Acute respiratory insufficiency (Acute) Chest pain (Acute) RECOMMENDATIONS: 1. Continue scheduled bronchodilators, steroids and antibiotics as ordered. Plan to complete a treatment course of antibiotics x7 days. 2. Wean supplemental oxygen to maintain saturations at or above 90%. 3. Encourage incentive spirometer use and mobilize patient as tolerated. 4. Perform walking oximetry study prior to consideration for discharge from the hospital. Anticipate home-going oxygen need. 5. Outpatient PFTs and pulmonary follow-up was recommended within 2 weeks of discharge from the hospital. 6. Additional cardiac work-up per recommendations. 7. Consider outpatient polysomnogram. IMPRESSIONS: 1. Acute hypoxemic respiratory insufficiency Potentially related to COPD exacerbation in the setting of community-acquired pneumonia. However, the patient is never undergone formal pulmonary function studies to actually confirm a diagnosis of obstructive lung disease. Nevertheless, the patient does have an extensive smoking history and I would agree with continuing bronchodilators, steroids and antibiotics as ordered. Wean supplemental oxygen to maintain saturations at or above 90%. Continue aggressive bronchopulmonary hygiene and mobilize patient as tolerated. Complete smoking cessation was strongly advised. The patient needs to complete a walking oximetry test prior to consideration for discharge from the hospital. He ideally should follow-up in the pulmonary medicine clinic within 2 weeks of his discharge. Orders for baseline pulmonary function studies can be obtained at that time. I would also recommend that the patient undergo a formal diagnostic polysomnogram as well. 2. Long-standing tobacco dependency As noted above, recommend outpatient pulmonary function studies to quantify lung function. Smoking cessation is advisable. Nicotine replacement therapy can be offered to the patient while he is admitted to the hospital. 3. Chest pain/troponin elevation Cardiology consultation is pending. Await echocardiogram and further recommendations for diagnostic work-up per cardiology. 4. Morbid obesity/diabetes mellitus/hypertension/hyperlipidemia/GERD Complicates care, management, recovery and prognosis. Okay to continue home medications as indicated. This note was generated with [id number] dictation software. It may contain incorrect words, spelling, and punctuation that were not noted in checking the note before signing. Code Visit Inpatient E&M: 63772 Subs Hosp L2
[2019-02-25 12:35] LABS: Bedside Glucose 226 mg/dL (70-110)
--- NOTE | 2019-02-25 12:38 | PN_ITS ---
<Gerald Pacheco - Last Filed: 02/25/19 12:38> Patient Problems: Active and Suspected Problems (Last Updated 02/25/19 @ 13:01 by Ward Cordero NP- C) Pneumococcal pneumonia (Acute) Acute respiratory insufficiency (Acute) COPD exacerbation (Suspected) Chest pain (Acute) Subjective: Denies CP/pressure/tightness. No dizziness or LH. Ongoing SOB at rest. No cough. No fever/chills. Mild LE edema. Hx [place] and stents - done at [facility]. Pt still smokes. He is not sure if he will be able to lay flat. - Physical Exam General: Alert, Oriented x3, Cooperative HEENT: Atraumatic, PERRLA, EOMI, Normocephalic Neck: Supple, No JVD, Negative Carotid Bruits Lungs: No rales, Diminished Cardiovascular: Regular rate, No murmurs Abdomen: Bowel Sounds Present, Soft, Non Tender Extremities: No edema, Capillary Refill Less than 3 Seconds Skin: No rashes, No breakdown Musculoskeletal: No Tenderness to Palpation of Joints or Extremities Neurological: Cranial nerves II-XII grossly intact Psych/Mental Status: Normal Affect, Appropriate, Alert and oriented to time, place, person, mood and affect Vital Signs Temp Pulse Resp BP Pulse Ox 99.0 F 88 20 H 133/69 H 91 02/25/19 09:25 02/25/19 12:25 02/25/19 11:01 02/25/19 12:25 02/25/19 09:25 Oxygen Flow Rate (L/min) 4 Oxygen Delivery Method Nasal Cannula Weight: 307 lb 15.772 oz Body Mass Index (BMI) 48.2 Intake and Output for Last 24 Hours 02/23/19 02/24/19 02/25/19 23:59 23:59 23:59 Intake Total 2864 / 3464 5028 / 5028 Balance 2864 / 3464 5028 / 5028 Microbiology Past 72 Hours 02/24/19 00:13 Gram Stain - Final Sputum, Expectorated/Coughed Respiratory Culture - Preliminary Appears to be normal respiratory woody. Further studies to follow. 02/24/19 13:15 Respiratory Panel (PCR) - Final Mucosa - Nose 02/24/19 02:30 Streptococcus pneumoniae Antigen (M - Final Urine, Clean Catch 02/24/19 02:30 Legionella Antigen - Final Urine, Clean Catch Laboratory Tests Past 24 Hrs 02/24/19 02/25/19 02/25/19 13:15 00:28 03:34 WBC RBC Hgb Hct MCV MCH MCHC RDW Std Deviation RDW Coeff of Tariq Plt Count MPV Immature Gran % (Auto) Neut % (Auto) Lymph % (Auto) [place] % (Auto) Eos % (Auto) Baso % (Auto) Absolute Neuts (auto) Absolute Lymphs (auto) Nucleated RBC % Sodium Potassium Chloride Carbon Dioxide Anion Gap BUN Creatinine Estim Creat Clear Calc Est GFR (MDRD) Af Amer Est GFR (MDRD) Non-Af BUN/Creatinine Ratio Glucose Calcium Troponin I 0.089 H 0.015 B-Natriuretic Peptide Triglycerides Cholesterol LDL Cholesterol VLDL Cholesterol HDL Cholesterol TSH Free T4 MRSA (PCR) Negative 02/25/19 02/25/19 02/25/19 06:15 06:15 06:15 WBC 12.7 H RBC 4.76 Hgb 13.4 Hct 41.7 MCV 87.6 MCH 28.2 MCHC 32.1 RDW Std Deviation 54.8 H RDW Coeff of Tariq 17.2 H Plt Count 129 L MPV 10.7 Immature Gran % (Auto) 1.600 H Neut % (Auto) 86.4 H Lymph % (Auto) 7.8 L [place] % (Auto) 4.0 Eos % (Auto) 0.0 Baso % (Auto) 0.2 Absolute Neuts (auto) 11.0 H Absolute Lymphs (auto) 1.00 Nucleated RBC % 0 Sodium 133 L Potassium 4.5 Chloride 99 Carbon Dioxide 31.0 Anion Gap 3 L BUN 70 H Creatinine 1.59 H Estim Creat Clear Calc 48.50 Est GFR (MDRD) Af Amer 58 L Est GFR (MDRD) Non-Af 48 L BUN/Creatinine Ratio 44.0 H Glucose 207 H Calcium 8.7 Troponin I B-Natriuretic Peptide 40.2 Triglycerides 203 H Cholesterol 177 LDL Cholesterol 104 VLDL Cholesterol 41 H HDL Cholesterol 32 L TSH 0.26 L Free T4 MRSA (PCR) 02/25/19 02/25/19 06:15 06:15 WBC RBC Hgb Hct MCV MCH MCHC RDW Std Deviation RDW Coeff of Tariq Plt Count MPV Immature Gran % (Auto) Neut % (Auto) Lymph % (Auto) [place] % (Auto) Eos % (Auto) Baso % (Auto) Absolute Neuts (auto) Absolute Lymphs (auto) Nucleated RBC % Sodium Potassium Chloride Carbon Dioxide Anion Gap BUN Creatinine Estim Creat Clear Calc Est GFR (MDRD) Af Amer Est GFR (MDRD) Non-Af BUN/Creatinine Ratio Glucose Calcium Troponin I 0.076 H B-Natriuretic Peptide Triglycerides Cholesterol LDL Cholesterol VLDL Cholesterol HDL Cholesterol TSH Free T4 0.78 MRSA (PCR) POC Glucose 02/25/19 02/25/19 02/24/19 12:20 08:04 22:11 POC Glucose 226 H 218 H 329 H 02/24/19 02/24/19 16:07 13:17 POC Glucose 298 H 307 H Medical Necessity - Tobacco Use Smoking Status: Current every day smoker Tobacco Use: Pipe Assessment/Plan All Active Problems (Last Updated 02/25/19 @ 13:01 by Ward Cordero NP-C) Pneumococcal pneumonia (Acute) Acute respiratory insufficiency (Acute) Chest pain (Acute) 1. CAP - streptococcal (+urine antigen) - mild leukocytosis. Roecphin. Remains on O2. Continue PEP/IS, mucinex. Repeat CXR in AM. BNP negative. 2. NSTEMI, hx CAD with prior stents - cath when able to tolerate. No CP currently. Cardiology following. 3. Suspected COPD - IV solumedrol, prn aerosols. Needs o/p PFTs 4. Suspected VERN - outpatient PSG. Trending overnight pulse ox tonight. 6. Nicotine abuse - patch if desired. 7. Morbid obesity - dietary eval. 8. T2DM - continue long acting, mealtime, and SS insulin. DVT ppx: lovenox DC planning: will need cath prior to dc. This patient was seen by Gerald Pacheco PA-C under the supervision of Dr. Noble <Graeme Noble - Last Filed: 02/25/19 13:49> - Physical Exam Vital Signs Temp Pulse Resp BP Pulse Ox 99.0 F 88 20 H 133/69 H 91 02/25/19 09:25 02/25/19 12:25 02/25/19 11:01 02/25/19 12:25 02/25/19 09:25 Oxygen Flow Rate (L/min) 4 Oxygen Delivery Method Nasal Cannula Weight: 139.7 kg Body Mass Index (BMI) 48.2 Intake and Output for Last 24 Hours 02/23/19 02/24/19 02/25/19 23:59 23:59 23:59 Intake Total 2864 / 3464 5028 / 5028 Balance 2864 / 3464 5028 / 5028 Microbiology Past 72 Hours 02/24/19 00:13 Gram Stain - Final Sputum, Expectorated/Coughed Respiratory Culture - Preliminary Appears to be normal respiratory woody. Further studies to follow. 02/24/19 13:15 Respiratory Panel (PCR) - Final Mucosa - Nose 02/24/19 02:30 Streptococcus pneumoniae Antigen (M - Final Urine, Clean Catch 02/24/19 02:30 Legionella Antigen - Final Urine, Clean Catch Laboratory Tests Past 24 Hrs 02/24/19 02/25/19 02/25/19 13:15 00:28 03:34 WBC RBC Hgb Hct MCV MCH MCHC RDW Std Deviation RDW Coeff of Tariq Plt Count MPV Immature Gran % (Auto) Neut % (Auto) Lymph % (Auto) [place] % (Auto) Eos % (Auto) Baso % (Auto) Absolute Neuts (auto) Absolute Lymphs (auto) Nucleated RBC % Sodium Potassium Chloride Carbon Dioxide Anion Gap BUN Creatinine Estim Creat Clear Calc Est GFR (MDRD) Af Amer Est GFR (MDRD) Non-Af BUN/Creatinine Ratio Glucose Calcium Troponin I 0.089 H 0.015 B-Natriuretic Peptide Triglycerides Cholesterol LDL Cholesterol VLDL Cholesterol HDL Cholesterol TSH Free T4 MRSA (PCR) Negative 02/25/19 02/25/19 02/25/19 06:15 06:15 06:15 WBC 12.7 H RBC 4.76 Hgb 13.4 Hct 41.7 MCV 87.6 MCH 28.2 MCHC 32.1 RDW Std Deviation 54.8 H RDW Coeff of Tariq 17.2 H Plt Count 129 L MPV 10.7 Immature Gran % (Auto) 1.600 H Neut % (Auto) 86.4 H Lymph % (Auto) 7.8 L [place] % (Auto) 4.0 Eos % (Auto) 0.0 Baso % (Auto) 0.2 Absolute Neuts (auto) 11.0 H Absolute Lymphs (auto) 1.00 Nucleated RBC % 0 Sodium 133 L Potassium 4.5 Chloride 99 Carbon Dioxide 31.0 Anion Gap 3 L BUN 70 H Creatinine 1.59 H Estim Creat Clear Calc 48.50 Est GFR (MDRD) Af Amer 58 L Est GFR (MDRD) Non-Af 48 L BUN/Creatinine Ratio 44.0 H Glucose 207 H Calcium 8.7 Troponin I B-Natriuretic Peptide 40.2 Triglycerides 203 H Cholesterol 177 LDL Cholesterol 104 VLDL Cholesterol 41 H HDL Cholesterol 32 L TSH 0.26 L Free T4 MRSA (PCR) 02/25/19 02/25/19 06:15 06:15 WBC RBC Hgb Hct MCV MCH MCHC RDW Std Deviation RDW Coeff of Tariq Plt Count MPV Immature Gran % (Auto) Neut % (Auto) Lymph % (Auto) [place] % (Auto) Eos % (Auto) Baso % (Auto) Absolute Neuts (auto) Absolute Lymphs (auto) Nucleated RBC % Sodium Potassium Chloride Carbon Dioxide Anion Gap BUN Creatinine Estim Creat Clear Calc Est GFR (MDRD) Af Amer Est GFR (MDRD) Non-Af BUN/Creatinine Ratio Glucose Calcium Troponin I 0.076 H B-Natriuretic Peptide Triglycerides Cholesterol LDL Cholesterol VLDL Cholesterol HDL Cholesterol TSH Free T4 0.78 MRSA (PCR) POC Glucose 02/25/19 02/25/19 02/24/19 12:20 08:04 22:11 POC Glucose 226 H 218 H 329 H 02/24/19 16:07 POC Glucose 298 H Assessment/Plan This patient was seen in conjunction with Gerald Pacheco PA-C . I have independently interviewed and examined the patient and reviewed pertinent historical, laboratory, and other data. Please refer to Gerald Pacheco PA-C note for details of this patient's presentation, findings, and recommendations. I have reviewed Gerald Pacheco PA-C note and concur with documented findings. In brief, Patient is a 58-year-old gentleman with BMI of 8.2, diabetes mellitus type 2, history of tobacco use who presented with progressive shortness of breath chest x-ray obtained on admission demonstrated Mild left upper lobe pneumonia , admitted to regular nursing floor where patient has since been managed . 02/25/2019. Patient was transferred to the intensive care unit after he developed chest pain. Serial cardiac enzymes came back slightly elevated. Part of his management 2D echo was obtained consultation placed to cardiology Physical Examination: GENERAL: Dyspneic at rest HEENT: Atraumatic; EYES; Anicteric, NECK; supple, normal thyroid, RESPIRATORY: Diminished to auscultation bilaterally, CARDIOVASCULAR: Regular S1 S2, GI: soft, non-tender, normoactive bowel sounds, : No Renal angle tenderness; EXTREMITIES: No edema, no clubbing, MUSCULOSKELETAL: No Joint Tenderness; NEURO: Awake; no lateralizing signs. SKIN: No Rash PSYCH; Normal affect Assessment: 1. Pneumonia: Suspected to be secondary to streptococcal pneumonia. 2. Acute on STEMI 3. Suspected sleep apnea patient undergo sleep study as outpatient 4. Diabetes mellitus type 2 did continue with patient home regimen 5. Dyslipidemia-patient is on statin therapy, continued at home dose 6. Hypertension-blood pressure controlled, home medications continued with dose adjustment as needed 7. COPD 8. Tobacco dependence counseled on cessation, offered nicotine patch for tobacco cravings 9. Morbid obesity with BMI of 48.2 weight loss advised 10. DVT prophylaxis SC Lovenox Recommendations: 1. I have discussed the results of my overview and impressions with the patient 2. Options for management were reviewed Code Visit Inpatient E&M: 75552 Subs Hosp L3
[2019-02-25 16:40] LABS: Bedside Glucose 149 mg/dL (70-110)
--- NOTE | 2019-02-25 21:34 | CPS ---
Patient started on Overnight Trend. Patient was started on Room Air, but desaturated under 88% over a period of a couple minutes. Titrated oxygen to 1L/min, and patient stayed right at 88% for a minute or so; patient desaturated under 88% over a period of a couple minutes. The patient's oxygen stayed above the 88% threshold at 2L/min.
[2019-02-25] MEDS: Atorvastatin Calcium 80 MG Tablet PO (23:08)
[2019-02-25 23:31] LABS: Bedside Glucose 228 mg/dL (70-110)
[2019-02-26] VITALS (21 sets, daily range): BP systolic 105–148; BP diastolic 46–70; PULSE 40–94; RESP 16–18; TEMP 36.6–36.8; O2SAT 90–95
[2019-02-26] MEDS: Nitroglycerin Oint 1 INCH PACKET TRANSDERM. ×4 (00:59→17:36)
[2019-02-26] MEDS: 0.9% NaCl Peripheral Flush Adult/Peds IV ×3 (05:35→22:45)
--- NOTE | 2019-02-26 05:55 | RAD_ITS ---
STUDY: X-RAY CHEST REASON FOR EXAM: Male, 58 years old. Shortness of breath/dyspnea. TECHNIQUE: PA and lateral views of the chest. COMPARISON: Comparison is made with prior study dated February 22, 2019. FINDINGS: EKG electrodes are seen. Since prior study, there has been progressive increased markings at the left lung base suggestive of atelectasis and/or infiltrate. The left upper lobe infiltrate has improved. Blunting of the left costophrenic angle. Stable bilateral pleural thickening. Normal size heart. Normal mediastinum and ny. Normal visualized pulmonary arteries. There is atherosclerotic tortuosity of the aortic arch and descending thoracic aorta. There are diffuse degenerative changes of the visualized thoracic spine. There is degenerative osteoarthritis of the bilateral shoulders. There is no demonstrated abnormality of the visualized soft tissue structures of the upper abdomen. RAD/Chest PA and Lateral IMPRESSION: Progressive infiltration and atelectasis at the left lung base with blunting of the left phrenic angle. Stable bilateral pleural thickening. Electronically Signed: Jamarcus Fernando, at 12:58 EDT , Service support ,
[2019-02-26 06:04] LABS: Absolute Lymphocyte Count 0.72 X10^3/uL (0.83-4.51); Absolute Neutrophil Count 7.9 X10^3/uL (2.0-7.7); Basophil# 0.01 X10^3/uL; Basophil% 0.1 % (0-1); Hematocrit 44.7 % (40-54); Lymphocyte # 0.72 X10^3/ul (4.0); Lymphocyte % 7.9 % (19-41); Mean Corp Hgb Conc 31.3 g/dL (32-36); Mean Corpuscular Volume 86.3 fL (80-94); Mean Platelet Vol. 10.6 fl (6.2-12.0); Monocyte% 4.4 % (0-10); NRBC Flagged by Analyzer 0 % (0-5); Neutrophil # 7.87 X10^3/uL (2.7-7.7); Neutrophil % 86.4 % (47-70); Platelet Count 133 K/mm3 (150-450); RBC Distribution Width CV 17.5 % (11.6-14.6); Red Blood Count 5.18 M/mm3 (4.6-6.2); White Blood Count 9.1 K/mm3 (4.4-11.0)
[2019-02-26 06:28] LABS: Anion Gap 5 (5-15); BUN 53 mg/dL (7-18); BUN/Creat Ratio 42.1 RATIO (10-20); Calcium,Total 9.3 mg/dL (8.5-10.1); Chloride 102 mmol/L (98-107); Creatinine, Serum 1.26 mg/dL (0.70-1.30); EST Glomerular Filtration Rate 63 mL/min (>60); Est Glom Filt Rate - Afr Amer 76 mL/min (>60); Glucose 157 mg/dL (74-106); Potassium 4.5 mmol/L (3.5-5.1); Sodium Level 140 mmol/L (136-145)
[2019-02-26] MEDS: Ipratropium/Albuterol Sulfate 3 ML AMPUL.NEB INHALATION ×5 (07:13→23:27)
[2019-02-26] MEDS: Insulin Lispro 100 UNIT/ML INSULN.PEN 30 UNIT SC ×3 (08:28→16:40)
[2019-02-26] MEDS: Insulin Lispro 100 UNIT/ML INSULN.PEN SC ×4 (08:28→22:34)
[2019-02-26] MEDS: Aspirin 325 MG Tablet PO (08:29)
[2019-02-26 08:35] LABS: Bedside Glucose 174 mg/dL (70-110)
[2019-02-26] MEDS: Acetaminophen 325 MG Tablet 650 MG PO (08:35)
[2019-02-26] MEDS: Enoxaparin 150 MG/ML Syringe 140 MG SC ×2 (08:49→22:35)
[2019-02-26] MEDS: Pantoprazole Sodium 40 MG Tablet PO (08:51)
[2019-02-26] MEDS: amLODIPine 10 MG Tablet PO (08:52)
[2019-02-26] MEDS: Clopidogrel Bisulfate 75 MG Tablet PO (08:52)
[2019-02-26] MEDS: guaiFENesin 1,200 MG Tablet 1200 MG PO ×2 (08:52→22:35)
[2019-02-26] MEDS: Isosorbide Mononitrate 30 MG Tablet PO (08:52)
[2019-02-26] MEDS: Lisinopril 40 MG Tablet PO (08:52)
[2019-02-26] MEDS: Carvedilol 25 MG Tablet PO ×2 (08:53→22:34)
[2019-02-26] MEDS: Pregabalin 50 MG Capsule PO ×2 (08:58→22:35)
[2019-02-26] MEDS: Chlorthalidone 50 MG Tablet 25 MG PO (08:59)
--- NOTE | 2019-02-26 09:34 | PCM.PN.CARD ---
Subjectve: The patient believes his breathing has improved. He denies any ongoing chest discomfort. Objective: Vital Signs Temp Pulse Resp BP Pulse Ox 98.3 F 67 18 148/63 H 92 02/26/19 08:48 02/26/19 08:48 02/26/19 08:48 02/26/19 08:48 02/26/19 08:48 Oxygen Flow Rate (L/min) 2 Oxygen Delivery Method Nasal Cannula Weight: 307 lb 15.772 oz Body Mass Index (BMI) 48.2 Intake and Output for Last 24 Hours 02/24/19 02/25/19 02/26/19 23:59 23:59 23:59 Intake Total 5028 / 5028 1580 / 1580 550 / 550 Balance 5028 / 5028 1580 / 1580 550 / 550 General: Awake, Alert, Oriented x 3, Cooperative, No Acute Distress HEENT: Atraumatic, Normocephalic, PERRL, EOMI, Sclera Non Icteric Oral: Moist Mucosa Neck: Supple, Good ROM, No JVD Lungs: Diminished [place] Bases Cardiovascular: Regular Rhythm, Normal S1, Normal S2 Vascular: No Carotid Bruits Abdomen: Bowel Sounds Present, Soft, Non Tender Extremities: Trace RLE Edema, Trace LLE Edema Neurological: No Focal Motor or Sensory Deficit Psych/Mental Status: Appropriate 02/25/19 06:15: B-Natriuretic Peptide 40.2 02/26/19 05:30: WBC 9.1, RBC 5.18, Hgb 14.0, Hct 44.7, MCV 86.3, MCH 27.0, MCHC 31.3 L, Plt Count 133 L, MPV 10.6, Immature Gran % (Auto) 1.200 H, Neut % (Auto) 86.4 H, Lymph % (Auto) 7.9 L, [place] % (Auto) 4.4, Eos % (Auto) 0.0, Baso % (Auto) 0.1, Absolute Neuts (auto) 7.9 H, Nucleated RBC % 0 02/26/19 05:30: Sodium 140, Potassium 4.5, Chloride 102, Carbon Dioxide 33.0 H, Anion Gap 5, BUN 53 H, Creatinine 1.26, Est GFR (MDRD) Af Amer 76, Est GFR (MDRD) Non-Af 63, BUN/Creatinine Ratio 42.1 H, Glucose 157 H, Calcium 9.3 Rhythm: Sinus rhythm Cardiac Cath: ??2001: Left main coronary artery reported as normal; LAD reported as occluded with the diagonal branch providing collateral flow to the distal LAD; LCx reported nondominant and normal; RCA reported dominant with minor irregularities; left ventricle reported with mild hypokinesis of the anterior wall and apex with an ejection fraction reported as normal PCI: 11-03-2001: LAD PCI: Dissection in the mid LAD requiring additional medical therapy with IV nitroglycerin, IV adenosine, and IV verapamil and subsequently PCI with 2.75 x 13 mm Penta stent with the more proximal LAD subsequently requiring a 3.0 x 23 mm Penta stent with subsequent gnosticism of JASPREET-3 flow in the LAD Medical Necessity - Tobacco Use Smoking Status: Current every day smoker Tobacco Use: Pipe Assessment/Plan 1. Abnormal cardiac enzymes The patient does have abnormal cardiac enzymes. Again it is unclear whether this may be related to supply demand mismatch being brought out by his underlying acute pulmonary disease process versus a separate primary CAD related/cardiac related event. He is continuing to be monitored. He is continuing medical therapy. His previous cardiac catheterization and PCI are as noted above. The tentative plan will be to proceed with repeat diagnostic cardiac catheterization on 02-27-19 with additional evaluation care as indicated. 2. CAD status post LAD PCI Again his previous cardiac catheterization and PCI are as noted above. At the present time the patient continues without acute symptoms. He will continue to be monitored. He will continue evaluation as noted above. 3. Ischemic mediated cardiomyopathy The patient has underlying CAD and reports of left ventricular regional wall motion abnormalities on his previous diagnostic cardiac catheterization with overall preserved LV systolic function. The patient has undergone subsequent evaluation with a transthoracic echocardiogram. Again he is noted to have left ventricular regional wall motion abnormalities with an overall preserved LVEF of approximately 65%. The patient will continue to be monitored. He will continue medical therapy. He will continue evaluation care with repeat diagnostic cardiac catheterization. 4. Hyperlipidemia The patient will continue risk factor evaluation care. 5. Hypertension The patient will continue medical management and follow-up. 6. COPD exacerbation/pneumonia The patient will continue under the care of internal medicine and Dr. Manzo pulmonology and critical care medicine. 7. Diabetes mellitus The patient will continue evaluation care per internal medicine. This note was generated using a voice recognition system and there may be incorrect words, spelling or punctuation that were not noted when reviewing the office note prior to saving.
--- NOTE | 2019-02-26 10:02 | CASEMGMT ---
According to the [facility] website, the following are in-network tertiary facilities: [facility], [facility], [facility], [facility], [facility], [facility], [facility], [place], and . Annabelle TINAJERO CM
--- NOTE | 2019-02-26 10:52 | PCM.PN.HOSP ---
Patient Problems: Active and Suspected Problems (Last Updated 02/25/19 @ 13:01 by Ward Cordero NP-C) Pneumococcal pneumonia (Acute) Acute respiratory insufficiency (Acute) COPD exacerbation (Suspected) Chest pain (Acute) Subjective: Patient is a 58-year-old gentleman with BMI of 8.2, diabetes mellitus type 2, history of tobacco use who presented with progressive shortness of breath chest x-ray obtained on admission demonstrated Mild left upper lobe pneumonia , admitted to regular nursing floor transferred to the progressive care unit after patient developed chest pain with elevated enzymes consistent with acute NSTEMI Objective: GENERAL: Dyspneic at rest HEENT: Atraumatic; EYES; Anicteric, NECK; supple, normal thyroid, RESPIRATORY: Diminished to auscultation bilaterally, CARDIOVASCULAR: Regular S1 S2, GI: soft, non-tender, normoactive bowel sounds, : No Renal angle tenderness; EXTREMITIES: No edema, no clubbing, MUSCULOSKELETAL: No Joint Tenderness; NEURO: Awake; no lateralizing signs. SKIN: No Rash PSYCH; Normal affect Vitals/I&O's: Vital Signs Temp Pulse Resp BP Pulse Ox 98.3 F 67 18 148/63 H 92 02/26/19 08:48 02/26/19 08:48 02/26/19 08:48 02/26/19 08:48 02/26/19 08:48 Oxygen Flow Rate (L/min) 2 Oxygen Delivery Method Nasal Cannula Weight: 139.7 kg Body Mass Index (BMI) 48.2 Intake and Output for Last 24 Hours 02/24/19 02/25/19 02/26/19 23:59 23:59 23:59 Intake Total 5028 / 5028 1580 / 1580 550 / 550 Balance 5028 / 5028 1580 / 1580 550 / 550 Microbiology Past 72 Hours 02/24/19 00:13 Sputum, Expectorated/Coughed Gram Stain - Final 02/24/19 00:13 Sputum, Expectorated/Coughed Respiratory Culture - Final 02/24/19 13:15 Mucosa - Nose Respiratory Panel (PCR) - Final 02/24/19 02:30 Urine, Clean Catch Streptococcus pneumoniae Antigen (M - Final 02/24/19 02:30 Urine, Clean Catch Legionella Antigen - Final Laboratory Results 02/25/19 06:15: B-Natriuretic Peptide 40.2 02/25/19 12:20: POC Glucose 226 H 02/25/19 16:35: POC Glucose 149 H 02/25/19 22:42: POC Glucose 228 H 02/26/19 05:30: WBC 9.1, RBC 5.18, Hgb 14.0, Hct 44.7, MCV 86.3, MCH 27.0, MCHC 31.3 L, RDW Std Deviation 55.0 H, RDW Coeff of Tariq 17.5 H, Plt Count 133 L, MPV 10.6, Immature Gran % (Auto) 1.200 H, Neut % (Auto) 86.4 H, Lymph % (Auto) 7.9 L, [place] % (Auto) 4.4, Eos % (Auto) 0.0, Baso % (Auto) 0.1, Absolute Neuts (auto) 7.9 H, Absolute Lymphs (auto) 0.72 L, Nucleated RBC % 0 02/26/19 05:30: Sodium 140, Potassium 4.5, Chloride 102, Carbon Dioxide 33.0 H, Anion Gap 5, BUN 53 H, Creatinine 1.26, Estim Creat Clear Calc 61.20, Est GFR (MDRD) Af Amer 76, Est GFR (MDRD) Non-Af 63, BUN/Creatinine Ratio 42.1 H, Glucose 157 H, Calcium 9.3 02/26/19 08:26: POC Glucose 174 H Current Medications Acetaminophen (Tylenol) 650 mg PO Q6H PRN PRN PRN Reason: Mild Pain (1-3)/Temp > 100.7 F Last Admin: 02/26/19 08:35 Dose: 650 mg Documented by: Al Hydroxide/Mg Hydroxide (Mylanta Ii) 30 ml PO Q6H PRN PRN PRN Reason: Gastric Burning Albuterol Sulfate (Ventolin Aerosols) 2.5 mg INHALATION Q2H PRN PRN PRN Reason: SHORTNESS OF BREATH Albuterol/Ipratropium (Duoneb) 3 ml INHALATION Q4H.RT [facility] Last Admin: 02/26/19 07:13 Dose: 3 ml Documented by: Amlodipine Besylate (Norvasc) 10 mg PO DAILY [facility] Last Admin: 02/26/19 08:52 Dose: 10 mg Documented by: Aspirin (Aspirin) 325 mg PO DAILY@0800 [facility] Last Admin: 08/01/19 08:29 Dose: 325 mg Documented by: Atorvastatin Calcium (Lipitor) 80 mg PO QHS [facility] Last Admin: 02/25/19 23:08 Dose: 80 mg Documented by: Carvedilol (Coreg) 25 mg PO BID [facility] Last Admin: 02/26/19 08:53 Dose: 25 mg Documented by: Chlorthalidone (Hygroton) 25 mg PO DAILY [facility] Last Admin: 02/26/19 08:59 Dose: 25 mg Documented by: Clopidogrel Bisulfate (Plavix) 75 mg PO DAILY [facility] Last Admin: 02/26/19 08:52 Dose: 75 mg Documented by: Dextrose (D50w Syringe) 0 gm IV X1 PRN; Protocol PRN Reason: Hypoglycemia Enoxaparin Sodium (Lovenox) 140 mg SC Q12 [facility] Last Admin: 02/26/19 08:49 Dose: 140 mg Documented by: Glucagon () 1 mg IM .X1 PRN PRN Reason: Hypoglycemia Guaifenesin (Mucinex) 1,200 mg PO BID [facility] Last Admin: 02/26/19 08:52 Dose: 1,200 mg Documented by: Ceftriaxone Sodium (Rocephin) 1 gm in 50 mls @ 100 mls/hr IV Q24 [facility] Last Admin: 02/25/19 10:47 Dose: 100 mls/hr Documented by: Sodium Chloride () 1,000 mls @ 15 mls/hr IV .Q48H [facility] Insulin Glargine (Lantus (Bkc)) 300 units SC QHS [facility] Last Admin: 02/25/19 23:08 Dose: 300 units Documented by: Insulin Human Lispro (Humalog Kwikpen (Bkc)) 0 unit SC ACHS [facility]; Protocol Last Admin: 02/26/19 08:28 Dose: 1 u Documented by: Insulin Human Lispro (Humalog Kwikpen (Bkc)) 30 unit SC TIDCM [facility] Last Admin: 02/26/19 08:28 Dose: 30 units Documented by: Isosorbide Mononitrate (Imdur) 30 mg PO DAILY [facility] Last Admin: 02/26/19 08:52 Dose: 30 mg Documented by: Lisinopril (Zestril) 40 mg PO DAILY [facility] Last Admin: 02/26/19 08:52 Dose: 40 mg Documented by: Melatonin (Melatonin) 3 mg PO QHS PRN PRN PRN Reason: INSOMNIA Last Admin: 02/22/19 22:42 Dose: 3 mg Documented by: Methylprednisolone (Solu-Medrol) 40 mg IV Q8 [facility] Last Admin: 02/26/19 05:34 Dose: 40 mg Documented by: Nitroglycerin (Nitrobid) 1 inch TRANSDERM. Q6 [facility] Last Admin: 02/26/19 05:33 Dose: 1 inch Documented by: Ondansetron HCl (Zofran) 4 mg IV Q8H PRN PRN PRN Reason: NAUSEA/VOMITING Pantoprazole Sodium (Protonix) 40 mg PO DAILY [facility] Last Admin: 02/26/19 08:51 Dose: 40 mg Documented by: Pregabalin (Lyrica) 50 mg PO BID [facility] Last Admin: 02/26/19 08:58 Dose: 50 mg Documented by: Sodium Chloride () 10 - 40 ml IV UD PRN PRN Reason: SALINE FLUSH Last Admin: 02/26/19 05:35 Dose: 10 ml Documented by: Medical Necessity - Tobacco Use Smoking Status: Current every day smoker Tobacco Use: Pipe Assessment/Plan All Active Problems (Last Updated 02/25/19 @ 13:01 by Ward Cordero NP-C) Pneumococcal pneumonia (Acute) Acute respiratory insufficiency (Acute) Chest pain (Acute) Patient is a 58-year-old gentleman with BMI of 8.2, diabetes mellitus type 2, history of tobacco use who presented with progressive shortness of breath chest x-ray obtained on admission demonstrated Mild left upper lobe pneumonia , admitted to regular nursing floor transferred to the progressive care unit after patient developed chest pain with elevated enzymes consistent with acute NSTEMI 1. Pneumonia: Suspected to be secondary to streptococcal pneumonia. Patient is admitted to regular floor. Patient placed on Rocephin and Zithromax. He was also placed on oxygen titrated to keep also is greater than 90. Cultures have remained negative to date. In view of patient remaining persistently dyspneic at rest with relative hypoxia consultation was placed pulmonary medicine seen by Dr. Manzo's note and recommendations reviewed 2. Acute non-STEMI being managed medically with dual antiplatelet therapy, statin therapy, beta-blockers and ALLISON inhibitors. 2D echo obtained demonstrated segmental dysfunction with preserved ejection fraction of 65%. Patient was also noted to have mild concentric left ventricular hypertrophy patient has been seen in consultation by Dr. Dong with plans for patient to undergo repeat diagnostic cardiac catheterization on 02/27/2019. 3. Suspected sleep apnea patient undergo sleep study as outpatient 4. Diabetes mellitus type 2 did continue with patient home regimen in addition to Accu-Cheks before meals and at bedtime with sliding scale coverage 5. Dyslipidemia-patient is on statin therapy, continued at home dose 6. Hypertension-blood pressure controlled, home medications continued with dose adjustment as needed 7. Tobacco dependence counseled on cessation, offered nicotine patch for tobacco cravings 8. Morbid obesity with BMI of 48.2 weight loss advised 9. DVT prophylaxis SC Lovenox Active Medications Acetaminophen (Tylenol) 650 mg PO Q6H PRN PRN PRN Reason: Mild Pain (1-3)/Temp > 100.7 F Last Admin: 02/26/19 08:35 Dose: 650 mg Documented by: Al Hydroxide/Mg Hydroxide (Mylanta Ii) 30 ml PO Q6H PRN PRN PRN Reason: Gastric Burning Albuterol Sulfate (Ventolin Aerosols) 2.5 mg INHALATION Q2H PRN PRN PRN Reason: SHORTNESS OF BREATH Albuterol/Ipratropium (Duoneb) 3 ml INHALATION Q4H.RT [facility] Last Admin: 02/26/19 07:13 Dose: 3 ml Documented by: Amlodipine Besylate (Norvasc) 10 mg PO DAILY [facility] Last Admin: 02/26/19 08:52 Dose: 10 mg Documented by: Aspirin (Aspirin) 325 mg PO DAILY@0800 [facility] Last Admin: 02/26/19 08:29 Dose: 325 mg Documented by: Atorvastatin Calcium (Lipitor) 80 mg PO QHS [facility] Last Admin: 02/25/19 23:08 Dose: 80 mg Documented by: Carvedilol (Coreg) 25 mg PO BID [facility] Last Admin: 02/26/19 08:53 Dose: 25 mg Documented by: Chlorthalidone (Hygroton) 25 mg PO DAILY [facility] Last Admin: 02/26/19 08:59 Dose: 25 mg Documented by: Clopidogrel Bisulfate (Plavix) 75 mg PO DAILY [facility] Last Admin: 02/26/19 08:52 Dose: 75 mg Documented by: Dextrose (D50w Syringe) 0 gm IV X1 PRN; Protocol PRN Reason: Hypoglycemia Enoxaparin Sodium (Lovenox) 140 mg SC Q12 [facility] Last Admin: 02/26/19 08:49 Dose: 140 mg Documented by: Glucagon () 1 mg IM .X1 PRN PRN Reason: Hypoglycemia Guaifenesin (Mucinex) 1,200 mg PO BID [facility] Last Admin: 02/26/19 08:52 Dose: 1,200 mg Documented by: Ceftriaxone Sodium (Rocephin) 1 gm in 50 mls @ 100 mls/hr IV Q24 [facility] Last Admin: 02/25/19 10:47 Dose: 100 mls/hr Documented by: Sodium Chloride () 1,000 mls @ 15 mls/hr IV .Q48H [facility] Insulin Glargine (Lantus ([facility])) 300 units SC QHS [facility] Last Admin: 02/25/19 23:08 Dose: 300 units Documented by: Insulin Human Lispro (Humalog Kwikpen ([facility])) 0 unit SC ACHS [facility]; Protocol Last Admin: 02/26/19 08:28 Dose: 1 u Documented by: Insulin Human Lispro (Humalog Kwikpen ([facility])) 30 unit SC TIDCM [facility] Last Admin: 02/26/19 08:28 Dose: 30 units Documented by: Isosorbide Mononitrate (Imdur) 30 mg PO DAILY [facility] Last Admin: 02/26/19 08:52 Dose: 30 mg Documented by: Lisinopril (Zestril) 40 mg PO DAILY [facility] Last Admin: 02/26/19 08:52 Dose: 40 mg Documented by: Melatonin (Melatonin) 3 mg PO QHS PRN PRN PRN Reason: INSOMNIA Last Admin: 02/22/19 22:42 Dose: 3 mg Documented by: Methylprednisolone (Solu-Medrol) 40 mg IV Q8 [facility] Last Admin: 02/26/19 05:34 Dose: 40 mg Documented by: Nitroglycerin (Nitrobid) 1 inch TRANSDERM. Q6 [facility] Last Admin: 02/26/19 05:33 Dose: 1 inch Documented by: Ondansetron HCl (Zofran) 4 mg IV Q8H PRN PRN PRN Reason: NAUSEA/VOMITING Pantoprazole Sodium (Protonix) 40 mg PO DAILY [facility] Last Admin: 02/26/19 08:51 Dose: 40 mg Documented by: Pregabalin (Lyrica) 50 mg PO BID [facility] Last Admin: 02/26/19 08:58 Dose: 50 mg Documented by: Sodium Chloride () 10 - 40 ml IV UD PRN PRN Reason: SALINE FLUSH Last Admin: 02/26/19 05:35 Dose: 10 ml Documented by: Code Visit Inpatient E&M: 85650 Subs Hosp L2
[2019-02-26] MEDS: Ceftriaxone 1 GM/50 ML BAG IV (10:59)
[2019-02-26 11:15] LABS: Bedside Glucose 194 mg/dL (70-110)
--- NOTE | 2019-02-26 13:00 | PN_ITS ---
Patient Problems: Active and Suspected Problems (Last Updated 02/25/19 @ 13:01 by Ward Cordero NP- C) Pneumococcal pneumonia (Acute) Acute respiratory insufficiency (Acute) COPD exacerbation (Suspected) Chest pain (Acute) Subjective: The patient was seen and examined at the bedside this morning. Events from the last 24 hours have been reviewed. The patient is currently afebrile, hemodynamically stable and maintaining appropriate oxygen saturations on 2 L/min via nasal cannula. Although improved, the patient continues to experience shortness of breath. Objective: The patient's most recent lab work, culture data and imaging studies have all been personally reviewed. Respiratory viral panel was negative. Strep and urine Legionella antigens were negative. Expectorated sputum culture appears to be normal respiratory woody. Surface echocardiogram revealed mild concentric LVH with an ejection fraction of 65%. - Physical Exam General: Alert, Cooperative, No apparent distress HEENT: Atraumatic, PERRLA, Normocephalic Oral: No Gingival or Mucosal Lesions/ Ulcerations Neck: Supple, No Nodes, Trachea Midline Lungs: No rhonchi, No wheeze, No rales, Diminished Cardiovascular: Regular rate, Regular Rhythm, Normal S1, Normal S2 Abdomen: Bowel Sounds Present, Soft, Non Tender, Obese Extremities: No clubbing, No cyanosis, No edema Skin: No breakdown Musculoskeletal: No Muscle Wasting Lymphatic: No Cervical, Supraclavicular, or Inguinal Adenopathy Neurological: Neuro grossly intact Psych/Mental Status: Normal Affect, Appropriate Vital Signs Temp Pulse Resp BP Pulse Ox 98.3 F 78 16 105/61 92 02/26/19 08:48 02/26/19 11:32 02/26/19 11:01 02/26/19 11:32 02/26/19 08:48 Oxygen Flow Rate (L/min) 2 Oxygen Delivery Method Nasal Cannula Weight: 307 lb 15.772 oz Body Mass Index (BMI) 48.2 Intake and Output for Last 24 Hours 02/24/19 02/25/19 02/26/19 23:59 23:59 23:59 Intake Total 5028 / 5028 1580 / 1580 843 / 843 Balance 5028 / 5028 1580 / 1580 843 / 843 Microbiology Past 72 Hours 02/24/19 00:13 Gram Stain - Final Sputum, Expectorated/Coughed Respiratory Culture - Final 02/24/19 13:15 Respiratory Panel (PCR) - Final Mucosa - Nose 02/24/19 02:30 Streptococcus pneumoniae Antigen (M - Final Urine, Clean Catch 02/24/19 02:30 Legionella Antigen - Final Urine, Clean Catch Laboratory Tests Past 24 Hrs 02/26/19 02/26/19 05:30 05:30 WBC 9.1 RBC 5.18 Hgb 14.0 Hct 44.7 MCV 86.3 MCH 27.0 MCHC 31.3 L RDW Std Deviation 55.0 H RDW Coeff of Tariq 17.5 H Plt Count 133 L MPV 10.6 Immature Gran % (Auto) 1.200 H Neut % (Auto) 86.4 H Lymph % (Auto) 7.9 L [place] % (Auto) 4.4 Eos % (Auto) 0.0 Baso % (Auto) 0.1 Absolute Neuts (auto) 7.9 H Absolute Lymphs (auto) 0.72 L Nucleated RBC % 0 Sodium 140 Potassium 4.5 Chloride 102 Carbon Dioxide 33.0 H Anion Gap 5 BUN 53 H Creatinine 1.26 Estim Creat Clear Calc 61.20 Est GFR (MDRD) Af Amer 76 Est GFR (MDRD) Non-Af 63 BUN/Creatinine Ratio 42.1 H Glucose 157 H Calcium 9.3 POC Glucose 02/26/19 02/26/19 02/25/19 11:04 08:26 22:42 POC Glucose 194 H 174 H 228 H 02/25/19 16:35 POC Glucose 149 H Clinical Impression(s) from Imaging Studies Chest X-Ray 02/22/19 16:57 IMPRESSION: Mild left upper lobe pneumonia is suspected. Electronically Signed: Shaun Cui MD at 17:29 EDT Tel , Service support , Chest X-Ray 02/26/19 05:55 IMPRESSION: Progressive infiltration and atelectasis at the left lung base with blunting of the left phrenic angle. Stable bilateral pleural thickening. Electronically Signed: Jamarcus Fernando, at 12:58 EDT , Service support , Medical Necessity - Tobacco Use Smoking Status: Current every day smoker Tobacco Use: Pipe Assessment/Plan All Active Problems (Last Updated 02/25/19 @ 13:01 by Ward Cordero NP-C) Pneumococcal pneumonia (Acute) Acute respiratory insufficiency (Acute) Chest pain (Acute) RECOMMENDATIONS: 1. Continue scheduled bronchodilators, steroids and antibiotics as ordered. Plan to complete a treatment course of antibiotics x7 days. 2. Wean supplemental oxygen to maintain saturations at or above 90%. 3. Encourage incentive spirometer use and mobilize patient as tolerated. 4. Perform walking oximetry study prior to consideration for discharge from the hospital. Anticipate home-going oxygen need. 5. Outpatient PFTs and pulmonary follow-up was recommended within 2 weeks of discharge from the hospital. 6. Additional cardiac work-up per recommendations. 7. Consider outpatient polysomnogram. IMPRESSIONS: 1. Acute hypoxemic respiratory insufficiency Potentially related to COPD exacerbation in the setting of community-acquired pneumonia. However, the patient is never undergone formal pulmonary function studies to actually confirm a diagnosis of obstructive lung disease. Nevertheless, the patient does have an extensive smoking history and I would agree with continuing bronchodilators, steroids and antibiotics as ordered. Wean supplemental oxygen to maintain saturations at or above 90%. Continue aggressive bronchopulmonary hygiene and mobilize patient as tolerated. Complete smoking cessation was strongly advised. The patient needs to complete a walking oximetry test prior to consideration for discharge from the hospital. He ideally should follow-up in the pulmonary medicine clinic within 2 weeks of his discharge. Orders for baseline pulmonary function studies can be obtained at that time. I would also recommend that the patient undergo a formal diagnostic polysomnogram as well. 2. Long-standing tobacco dependency As noted above, recommend outpatient pulmonary function studies to quantify lung function. Smoking cessation is advisable. Nicotine replacement therapy can be offered to the patient while he is admitted to the hospital. 3. Chest pain/troponin elevation Cardiology is following with potential plans for catheterization tomorrow. 4. Morbid obesity/diabetes mellitus/hypertension/hyperlipidemia/GERD Complicates care, management, recovery and prognosis. Okay to continue home med ications as indicated. This note was generated with [employer]ation software. It may contain incorrect words, spelling, and punctuation that were not noted in checking the note before signing. Code Visit Inpatient E&M: 45868 Subs Hosp L2
--- NOTE | 2019-02-26 15:32 | CASEMGMT ---
Addendum entered by Radha Mustafa 02/26/19 15:39: EChristopher EID aware of pt need for further resources, voices understanding. Annabelle TINAJERO CM Original Note: This RN CM to bedside and pt states that he is compliant with meds at home and states that he knows that he has had sleep apnea 'for awhile' but states has not f/u in regards to same d/t financial concerns. Pt also states that he knows what he should eat but states that he does not have a healthy diet d/t financial concerns as well. Pt states that he is on disability but is unsure what he gets a month at this time. Pt states he knows that he may have to deal with getting a bipap at discharge and 'just re-arrange some finances to get it done.' Pt does smoke a pipe daily. Pt is aware that he is going to at least need oxygen at bedtime and is aware that he will be tested prior to discharge for oxygen 24/7. CM to follow. Pt voices no further questions/concerns/needs at this time. Annabelle TINAJERO CM
[2019-02-26 16:45] LABS: Bedside Glucose 313 mg/dL (70-110)
[2019-02-26] MEDS: Atorvastatin Calcium 80 MG Tablet PO (22:35)
[2019-02-27] VITALS (31 sets, daily range): BP systolic 86–172; BP diastolic 33–89; PULSE 55–94; RESP 14–24; TEMP 36.3–37.1; O2SAT 90–97; BMI 48.0
[2019-02-27] MEDS: Nitroglycerin Oint 1 INCH PACKET TRANSDERM. (00:10)
[2019-02-27] MEDS: 0.9% NaCl Peripheral Flush Adult/Peds IV ×2 (00:22→21:35)
[2019-02-27 02:36] LABS: Bedside Glucose 276 mg/dL (70-110)
[2019-02-27] MEDS: Ipratropium/Albuterol Sulfate 3 ML AMPUL.NEB INHALATION ×6 (03:50→22:47)
--- NOTE | 2019-02-27 04:00 | EKG12_ITS ---
Test Reason : AM EKG Blood Pressure : / mmHG Vent. Rate : 081 BPM Atrial Rate : 081 BPM P-R Int : 174 ms QRS Dur : 098 ms QT Int : 362 ms P-R-T Axes : 052 -10 063 degrees QTc Int : 420 ms Normal sinus rhythm Anteroseptal infarct , age undetermined Abnormal ECG When compared with ECG of 25-FEB-2019 05:30, MANUAL COMPARISON REQUIRED, DATA IS UNCONFIRMED Confirmed by RHONDA COSTELLO ([id number]), editorial assistant RITESH FREY ([id number]) on 03/04/2019 3:46:31 PM Referred By: Angel Goldberg Confirmed By:RHONDA COSTELLO
--- NOTE | 2019-02-27 04:19 | PCM.HOSP.N ---
Hospitalist Note Pressure is low at 86/56, heart rate 83/min Pulse ox 95% include oxygen. Patient on multiple antihypertensive medications on high doses along with nitroglycerin 1% ointment every 6 hourly. Hold antihypertensive medications. IV fluid normal saline at renal per hour for 6 hours. Meds reconciliation done. Discussed with the nursing staff. Echo reviewed. EF 65% with segmental dysfunction with hypokinetic anterior apex. Patient is scheduled for cardiac cath today.
[2019-02-27] MEDS: 0.9% Normal Saline 1,000 ML 100 ML IV (04:31)
--- NOTE | 2019-02-27 04:32 | NURSING ---
pt bp 86/56, hospitalist notified, new bp med perameters written, nitro paste held. ns at 100ml x6 hour.
[2019-02-27 04:38] LABS: Absolute Lymphocyte Count 0.77 X10^3/uL (0.83-4.51); Basophil# 0.01 X10^3/uL; Basophil% 0.1 % (0-1); Eosinophil# 0.01 X10^3/uL; Eosinophils% 0.1 % (0-5); Hematocrit 44.9 % (40-54); Hemoglobin 14.4 g/dL (13.0-16.5); Lymphocyte # 0.77 X10^3/ul (4.0); Lymphocyte % 8.1 % (19-41); Mean Corp Hgb Conc 32.1 g/dL (32-36); Mean Corpuscular Hgb 27.8 pg (27.0-32.0); Mean Corpuscular Volume 86.7 fL (80-94); Mean Platelet Vol. 10.3 fl (6.2-12.0); Monocyte% 6.3 % (0-10); NRBC Flagged by Analyzer 0 % (0-5); Neutrophil # 8.02 X10^3/uL (2.7-7.7); Neutrophil % 84.5 % (47-70); Platelet Count 122 K/mm3 (150-450); RBC Distribution Width SD 53.7 fl (35.1-43.9); Red Blood Count 5.18 M/mm3 (4.6-6.2); White Blood Count 9.5 K/mm3 (4.4-11.0)
[2019-02-27 04:50] LABS: Anion Gap 6 (5-15); BUN 41 mg/dL (7-18); BUN/Creat Ratio 33.3 RATIO (10-20); Calcium,Total 8.9 mg/dL (8.5-10.1); Chloride 103 mmol/L (98-107); Creatinine, Serum 1.23 mg/dL (0.70-1.30); EST Glomerular Filtration Rate 65 mL/min (>60); Est Glom Filt Rate - Afr Amer 78 mL/min (>60); Glucose 196 mg/dL (74-106); Potassium 4.3 mmol/L (3.5-5.1); Sodium Level 142 mmol/L (136-145)
[2019-02-27 04:57] LABS: International Normalized Ratio 1.2; Prothrombin Time (Protime)PT. 14.6 SECONDS (11.7-14.9)
[2019-02-27 04:58] LABS: Partial Thromboplast Time 32.7 Seconds (24.1-36.2)
[2019-02-27] MEDS: Aspirin 325 MG Tablet PO (06:39)
[2019-02-27] MEDS: Clopidogrel Bisulfate 75 MG Tablet PO (06:39)
[2019-02-27 06:56] LABS: Bedside Glucose 161 mg/dL (70-110)
--- NOTE | 2019-02-27 07:31 | PCM.PN.PUL ---
Patient Problems: Active and Suspected Problems (Last Updated 02/27/19 @ 13:13 by Ward Cordero NP-C) DM2 (diabetes mellitus, type 2) (Acute) S/P hip replacement (Acute) bilateral Pneumococcal pneumonia (Acute) Acute respiratory insufficiency (Acute) COPD exacerbation (Suspected) Chest pain (Acute) Subjective: The patient was seen and examined at the bedside this morning. Events from the last 24 hours have been reviewed. The patient is currently afebrile, hemodynamically stable and maintaining appropriate oxygen saturations on 3 L/min via nasal cannula. There are tentative plans for cardiac catheterization at some point today. He is currently chest pain-free. Objective: The patient's most recent lab work, culture data and imaging studies have all been personally reviewed. Respiratory viral panel was negative. Strep and urine Legionella antigens were negative. Expectorated sputum culture appears to be normal respiratory woody. Surface echocardiogram revealed mild concentric LVH with an ejection fraction of 65%. - Physical Exam General: Alert, Cooperative, No apparent distress HEENT: Atraumatic, PERRLA, Normocephalic Oral: No Gingival or Mucosal Lesions/ Ulcerations Neck: Supple, No Nodes, Trachea Midline Lungs: No rhonchi, No wheeze, No rales, Diminished Cardiovascular: Regular rate, Regular Rhythm, Normal S1, Normal S2 Abdomen: Bowel Sounds Present, Soft, Non Tender, Obese Extremities: No clubbing, No cyanosis, No edema Skin: No breakdown Musculoskeletal: No Tenderness to Palpation of Joints or Extremities, No Muscle Wasting Lymphatic: No Cervical, Supraclavicular, or Inguinal Adenopathy Neurological: Cranial nerves II-XII grossly intact, Neuro grossly intact Psych/Mental Status: Alert and oriented to time, place, person, mood and affect Vital Signs Temp Pulse Resp BP Pulse Ox 97.3 F L 70 22 H 109/43 L 94 02/27/19 05:15 02/27/19 05:15 02/27/19 05:15 02/27/19 05:15 02/27/19 05:15 Oxygen Flow Rate (L/min) 3 Oxygen Delivery Method Nasal Cannula Weight: 307 lb 15.772 oz Body Mass Index (BMI) 48.2 Intake and Output for Last 24 Hours 02/25/19 02/26/19 02/27/19 23:59 23:59 23:59 Intake Total 1580 / 1580 1443 / 1443 220 / 220 Balance 1580 / 1580 1443 / 1443 220 / 220 Microbiology Past 72 Hours 02/24/19 00:13 Gram Stain - Final Sputum, Expectorated/Coughed Respiratory Culture - Final 02/24/19 13:15 Respiratory Panel (PCR) - Final Mucosa - Nose 02/24/19 02:30 Streptococcus pneumoniae Antigen (M - Final Urine, Clean Catch 02/24/19 02:30 Legionella Antigen - Final Urine, Clean Catch Laboratory Tests Past 24 Hrs 02/27/19 02/27/19 02/27/19 04:30 04:30 04:30 WBC 9.5 RBC 5.18 Hgb 14.4 Hct 44.9 MCV 86.7 MCH 27.8 MCHC 32.1 RDW Std Deviation 53.7 H RDW Coeff of Tariq 17.0 H Plt Count 122 L MPV 10.3 Immature Gran % (Auto) 0.900 Neut % (Auto) 84.5 H Lymph % (Auto) 8.1 L [place] % (Auto) 6.3 Eos % (Auto) 0.1 Baso % (Auto) 0.1 Absolute Neuts (auto) 8.0 H Absolute Lymphs (auto) 0.77 L Nucleated RBC % 0 PT 14.6 INR 1.2 APTT 32.7 Sodium 142 Potassium 4.3 Chloride 103 Carbon Dioxide 33.0 H Anion Gap 6 BUN 41 H Creatinine 1.23 Estim Creat Clear Calc 62.70 Est GFR (MDRD) Af Amer 78 Est GFR (MDRD) Non-Af 65 BUN/Creatinine Ratio 33.3 H Glucose 196 H Calcium 8.9 POC Glucose 02/27/19 02/26/19 02/26/19 06:36 22:33 16:38 POC Glucose 161 H 276 H 313 H 02/26/19 02/26/19 11:04 08:26 POC Glucose 194 H 174 H Clinical Impression(s) from Imaging Studies Chest X-Ray 02/22/19 16:57 IMPRESSION: Mild left upper lobe pneumonia is suspected. Electronically Signed: Shaun Cui MD at 17:29 EDT Tel , Service support , Chest X-Ray 02/26/19 05:55 IMPRESSION: Progressive infiltration and atelectasis at the left lung base with blunting of the left phrenic angle. Stable bilateral pleural thickening. Electronically Signed: Jamarcus Fernando, at 12:58 EDT , Service support , Medical Necessity - Tobacco Use Smoking Status: Current every day smoker Tobacco Use: Pipe Assessment/Plan All Active Problems (Last Updated 02/27/19 @ 13:13 by Ward Cordero, TERRI-C) DM2 (diabetes mellitus, type 2) (Acute) S/P hip replacement (Acute) Pneumococcal pneumonia (Acute) Acute respiratory insufficiency (Acute) Chest pain (Acute) RECOMMENDATIONS: 1. Continue scheduled bronchodilators, steroids and antibiotics as ordered. Plan to complete a treatment course of antibiotics x7 days. 2. Transition from IV steroids to prednisone 40 mg daily with plans for a taper at discharge. 3. Wean supplemental oxygen to maintain saturations at or above 90%. 4. Encourage incentive spirometer use and mobilize patient as tolerated. 5. Perform walking oximetry study prior to consideration for discharge from the hospital. Anticipate home-going oxygen need. 6. Outpatient PFTs and pulmonary follow-up was recommended within 2 weeks of discharge from the hospital. 7. Cardiac catheterization today. 8. Consider outpatient polysomnogram. IMPRESSIONS: 1. Acute hypoxemic respiratory insufficiency Potentially related to COPD exacerbation in the setting of community-acquired pneumonia. However, the patient is never undergone formal pulmonary function studies to actually confirm a diagnosis of obstructive lung disease. Nevertheless, the patient does have an extensive smoking history and I would agree with continuing bronchodilators, steroids and antibiotics as ordered. Wean supplemental oxygen to maintain saturations at or above 90%. Continue aggressive bronchopulmonary hygiene and mobilize patient as tolerated. Complete smoking cessation was strongly advised. The patient needs to complete a walking oximetry test prior to consideration for discharge from the hospital. He ideally should follow-up in the pulmonary medicine clinic within 2 weeks of his discharge. Orders for baseline pulmonary function studies can be obtained at that time. I would also recommend that the patient undergo a formal diagnostic polysomnogram as well. 2. Long-standing tobacco dependency As noted above, recommend outpatient pulmonary function studies to quantify lung function. Smoking cessation is advisable. Nicotine replacement therapy can be offered to the patient while he is admitted to the hospital. 3. Chest pain/troponin elevation Cardiology is following with plans for catheterization this morning. 4. Morbid obesity/diabetes mellitus/hypertension/hyperlipidemia/GERD Complicates care, management, recovery and prognosis. Okay to continue home medications as indicated. This note was generated with [employer] dictation software. It may contain incorrect words, spelling, and punctuation that were not noted in checking the note before signing. Code Visit Inpatient E&M: 17480 Subs Hosp L2
--- NOTE | 2019-02-27 08:00 | NURSING ---
verbal report given to edwina jordan in orthodontic lab technician
--- NOTE | 2019-02-27 09:27 | NURSING ---
verbal reoprt given to edwina blanchard in icu
--- NOTE | 2019-02-27 09:56 | PCM.PN.HOSP ---
Patient Problems: Active and Suspected Problems (Last Updated 02/25/19 @ 13:01 by Ward Cordero NP-C) Pneumococcal pneumonia (Acute) Acute respiratory insufficiency (Acute) COPD exacerbation (Suspected) Chest pain (Acute) Subjective: Patient scheduled to undergo left heart catheterization this a.m. Objective: GENERAL: Dyspneic at rest HEENT: Atraumatic; EYES; Anicteric, NECK; supple, normal thyroid, RESPIRATORY: Diminished to auscultation bilaterally, CARDIOVASCULAR: Regular S1 S2, GI: soft, non-tender, normoactive bowel sounds, : No Renal angle tenderness; EXTREMITIES: No edema, no clubbing, MUSCULOSKELETAL: No Joint Tenderness; NEURO: Awake; no lateralizing signs. SKIN: No Rash PSYCH; Normal affect Vitals/I&O's: Vital Signs Temp Pulse Resp BP Pulse Ox 98.7 F 90 20 H 104/52 L 95 02/27/19 08:00 02/27/19 08:00 02/27/19 08:00 02/27/19 08:00 02/27/19 08:00 Oxygen Flow Rate (L/min) 3 Oxygen Delivery Method Nasal Cannula Weight: 139.7 kg Body Mass Index (BMI) 48.2 Intake and Output for Last 24 Hours 02/25/19 02/26/19 02/27/19 23:59 23:59 23:59 Intake Total 1580 / 1580 1443 / 1443 220 / 220 Balance 1580 / 1580 1443 / 1443 220 / 220 Microbiology Past 72 Hours 02/24/19 00:13 Sputum, Expectorated/Coughed Gram Stain - Final 02/24/19 00:13 Sputum, Expectorated/Coughed Respiratory Culture - Final 02/24/19 13:15 Mucosa - Nose Respiratory Panel (PCR) - Final 02/24/19 02:30 Urine, Clean Catch Streptococcus pneumoniae Antigen (M - Final 02/24/19 02:30 Urine, Clean Catch Legionella Antigen - Final Laboratory Results 02/26/19 11:04: POC Glucose 194 H 02/26/19 16:38: POC Glucose 313 H 02/26/19 22:33: POC Glucose 276 H 02/27/19 04:30: Sodium 142, Potassium 4.3, Chloride 103, Carbon Dioxide 33.0 H, Anion Gap 6, BUN 41 H, Creatinine 1.23, Estim Creat Clear Calc 62.70, Est GFR (MDRD) Af Amer 78, Est GFR (MDRD) Non-Af 65, BUN/Creatinine Ratio 33.3 H, Glucose 196 H, Calcium 8.9 02/27/19 04:30: WBC 9.5, RBC 5.18, Hgb 14.4, Hct 44.9, MCV 86.7, MCH 27.8, MCHC 32.1, RDW Std Deviation 53.7 H, RDW Coeff of Tariq 17.0 H, Plt Count 122 L, MPV 10.3, Immature Gran % (Auto) 0.900, Neut % (Auto) 84.5 H, Lymph % (Auto) 8.1 L, [place] % (Auto) 6.3, Eos % (Auto) 0.1, Baso % (Auto) 0.1, Absolute Neuts (auto) 8.0 H, Absolute Lymphs (auto) 0.77 L, Nucleated RBC % 0 02/27/19 04:30: PT 14.6, INR 1.2, APTT 32.7 02/27/19 06:36: POC Glucose 161 H Current Medications Acetaminophen (Tylenol) 650 mg PO Q6H PRN PRN PRN Reason: Mild Pain (1-3)/Temp > 100.7 F Last Admin: 02/26/19 08:35 Dose: 650 mg Documented by: Al Hydroxide/Mg Hydroxide (Mylanta Ii) 30 ml PO Q6H PRN PRN PRN Reason: Gastric Burning Albuterol Sulfate (Ventolin Aerosols) 2.5 mg INHALATION Q2H PRN PRN PRN Reason: SHORTNESS OF BREATH Albuterol/Ipratropium (Duoneb) 3 ml INHALATION Q4H.RT [facility] Last Admin: 02/27/19 07:01 Dose: 3 ml Documented by: Amlodipine Besylate (Norvasc) 10 mg PO DAILY [facility] Aspirin (Aspirin) 325 mg PO DAILY@0800 [facility] Last Admin: 02/27/19 06:39 Dose: 325 mg Documented by: Atorvastatin Calcium (Lipitor) 80 mg PO QHS [facility] Last Admin: 02/26/19 22:35 Dose: 80 mg Documented by: Carvedilol (Coreg) 25 mg PO BID [facility] Chlorthalidone (Hygroton) 25 mg PO DAILY [facility] Last Admin: 02/26/19 08:59 Dose: 25 mg Documented by: Clopidogrel Bisulfate (Plavix) 75 mg PO DAILY [facility] Last Admin: 02/27/19 06:39 Dose: 75 mg Documented by: Dextrose (D50w Syringe) 0 gm IV X1 PRN; Protocol PRN Reason: Hypoglycemia Enoxaparin Sodium (Lovenox) 140 mg SC Q12 [facility] Last Admin: 02/26/19 22:35 Dose: 140 mg Documented by: Glucagon () 1 mg IM .X1 PRN PRN Reason: Hypoglycemia Guaifenesin (Mucinex) 1,200 mg PO BID [facility] Last Admin: 02/26/19 22:35 Dose: 1,200 mg Documented by: Ceftriaxone Sodium (Rocephin) 1 gm in 50 mls @ 100 mls/hr IV Q24 [facility] Last Admin: 02/26/19 10:59 Dose: 100 mls/hr Documented by: Sodium Chloride () 1,000 mls @ 15 mls/hr IV .Q48H [facility] Last Admin: 02/27/19 04:43 Dose: Not Given Documented by: Sodium Chloride () 1,000 mls @ 100 mls/hr IV .Q10H [facility] Stop: 02/27/19 10:21 Last Admin: 02/27/19 04:31 Dose: 100 mls/hr Documented by: Insulin Glargine (Lantus (Bkc)) 300 units SC QHS [facility] Last Admin: 02/26/19 22:55 Dose: 300 units Documented by: Insulin Human Lispro (Humalog Kwikpen (Bkc)) 0 unit SC ACHS [facility]; Protocol Last Admin: 02/27/19 08:17 Dose: Not Given Documented by: Insulin Human Lispro (Humalog Kwikpen (Bkc)) 30 unit SC TIDCM [facility] Last Admin: 02/26/19 16:40 Dose: 30 units Documented by: Isosorbide Mononitrate (Imdur) 30 mg PO DAILY [facility] Lisinopril (Zestril) 40 mg PO DAILY [facility] Melatonin (Melatonin) 3 mg PO QHS PRN PRN PRN Reason: INSOMNIA Last Admin: 02/22/19 22:42 Dose: 3 mg Documented by: Methylprednisolone (Solu-Medrol) 40 mg IV Q8 [facility] Last Admin: 02/27/19 06:44 Dose: 40 mg Documented by: Ondansetron HCl (Zofran) 4 mg IV Q8H PRN PRN PRN Reason: NAUSEA/VOMITING Pantoprazole Sodium (Protonix) 40 mg PO DAILY [facility] Last Admin: 02/26/19 08:51 Dose: 40 mg Documented by: Pregabalin (Lyrica) 50 mg PO BID [facility] Last Admin: 02/26/19 22:35 Dose: 50 mg Documented by: Sodium Chloride () 10 - 40 ml IV UD PRN PRN Reason: SALINE FLUSH Last Admin: 02/27/19 00:22 Dose: 10 ml Documented by: Medical Necessity - Tobacco Use Smoking Status: Current every day smoker Tobacco Use: Pipe Assessment/Plan All Active Problems (Last Updated 02/25/19 @ 13:01 by Ward Cordero NP-C) Pneumococcal pneumonia (Acute) Acute respiratory insufficiency (Acute) Chest pain (Acute) Patient is a 58-year-old gentleman with BMI of 8.2, diabetes mellitus type 2, history of tobacco use who presented with progressive shortness of breath chest x-ray obtained on admission demonstrated Mild left upper lobe pneumonia , admitted to regular nursing floor transferred to the progressive care unit after patient developed chest pain with elevated enzymes consistent with acute NSTEMI 1. Pneumonia: Suspected to be secondary to streptococcal pneumonia. Patient is admitted to regular floor. Patient placed on Rocephin and Zithromax. He was also placed on oxygen titrated to keep also is greater than 90. Cultures have remained negative to date. In view of patient remaining persistently dyspneic at rest with relative hypoxia consultation was placed pulmonary medicine seen by Dr. Manzo's notes and recommendations reviewed 2. Acute non-STEMI being managed medically with dual antiplatelet therapy, statin therapy, beta-blockers and ALLISON inhibitors. 2D echo obtained demonstrated segmental dysfunction with preserved ejection fraction of 65%. Patient was also noted to have mild concentric left ventricular hypertrophy patient has been seen in consultation by Dr. Dong with plans for patient to undergo repeat diagnostic cardiac catheterization on 02/27/2019. ~02/27/2019 Patient to undergo left heart catheterization ~03-16. Patient underwent left heart catheterization with intervention (PCI with LINDA to mid LAD lesion) 3. Suspected sleep apnea patient undergo sleep study as outpatient 4. Diabetes mellitus type 2 did continue with patient home regimen in addition to Accu-Cheks before meals and at bedtime with sliding scale coverage 5. Dyslipidemia-patient is on statin therapy, continued at home dose 6. Hypertension-blood pressure controlled, home medications continued with dose adjustment as needed 7. Tobacco dependence counseled on cessation, offered nicotine patch for tobacco cravings 8. Morbid obesity with BMI of 48.2 weight loss advised 9. DVT prophylaxis SC Lovenox Code Visit Inpatient E&M: 34499 Subs Hosp L3
--- NOTE | 2019-02-27 10:11 | CL.I_ITS ---
Patient Name: VANESSA MURO Study Date: 02/27/2019 Performing: Serge Hendricks MD Ht: 66.92 inches 170 cm : 1960 Wt: 308.65 lbs 140 kg Age: 58 Gender: male BSA: 2.43 PROCEDURE(S) PERFORMED QP96-QOI W OR WO PTCA, SINGLE CORONARY ARTERY CLINICAL PROFILE AND CO-MORBIDITIES Patient presents with NSTEMI for urgent cardiac cath Indications: Worsening Angina, Suspected CAD, Worsening Angina, Stable Known CAD, LV Dysfunction Heart Failure: NYHA Class: 1, Newly Diagnosed: No, Heart Failure Type: Systolic Stress/Imaging Stress/Image Study Performed: No Stress/Image Study Performed: No Angina Classification Anginal Classification w/in 2 Weeks: CCS IV CAD Presentations: Unstable angina. Non-STEMI. Symptom onset Date/Time: 02/22/2019 Time Not Availa ble Unstable angina. Comorbidities/Risk Factors: Current/Recent Smoker (< 1year) Hypertension Dyslipidemia Prior PCI Diabetes Mellitus: Diabetes Therapy: Oral Diabetes Mellitus: Diabetes Therapy: Insulin Chronic Lung Disease CONCLUSIONS Successful PTCA/LINDA with 2.0 x 10 angiosculpt, followed with a 2.25 x 38 Promus Synergy, followed imm ediately upstream with a 3.0 x 16 Promus Synergy, post dilated proximally with a 3.0 x 8 NC Balloon; 90%-->0%, no dissection and no compromise of R to L collateral septal personal financial planner. RECOMMENDATIONS Highly recommend quitting all tobacco products Follow up with primary septic tank setter Risk factor modification ASA Indefinitley Plavix for at least 12 months Routine post interventional care Refer for Outpatient Cardiac Rehab Manual sheath removal per protocol Follow up with Dr. Dong Stress test in 3-4 weeks to eval LCX/OM and PDA lesions; if abnormal, would consiider PCI of LCX/OM + /- PDA. Would utilize long 55 cm sheath given body habitus. Partially successful Mynx Control closure; direct manual pressure held DESCRIPTION OF PROCEDURE The patient arrived to the procedure lab. The risks and benefits of the procedure as well as a full d escription of our services here and current unavailability of surgical backup were fully explained to the patient and/or their significant other prior to the catheterization. The Timeout was completed, verifying the correct patient and procedure. The patient's procedural site was prepped and draped in the usual fashion. Local anesthetic was given subcutaneously to right radial region with Lidocaine 2% . Local anesthetic was given subcutaneously to right groin region with Lidocaine 2% Using a modified Seldinger technique,arterial access was obtained via the right radial artery, a 6Fr sheath was insert ed., arterial access was obtained via the right femoral artery, a 6Fr sheath was inserted. Right Al nary Artery selective angiography was then performed in multiple views using a 5 Fr. 4.0 Mellette cathet er. Left Coronary Artery selective angiography was performed in multiple views using a 5 Fr. 4.0 Mellette catheter. Left Coronary Artery selective angiography was performed in multiple views us ing a 5 Fr. 4.0 Mellette catheter. Left Ventriculography was performed in ABDULLAHI projection using a 5 Fr. P igtail catheter. LV to AO pullback pressures were then recorded.The images were reviewed and options discussed. A decision was then made to proceed with an Intervention, IVUS or other adjunct procedure. EBU 3.75 Guide catheter was inserted and engaged into the LCA. BMW Guide wire was advanced to the LAD. 2x12 Emerge Balloon catheter was inserted. Balloon catheter was advanced across lesion in the L AD, mid. PTCA balloon inflated at 6 atms for 7 secs. PTCA balloon inflated at 6 atms for 8 secs. PTCA balloon inflated at 8 atms for 8 secs. PTCA balloon inflated at 6 atms for 6 secs. PTCA balloon infl ated at 8 atms for 6 secs. Angiogram performed post balloon dilatation. Balloon catheter was reinsert ed PTCA balloon inflated at 6 atms for 6 secs. PTCA balloon inflated at 6 atms for 6 secs. PTCA ballo on inflated at 6 atms for 6 secs. PTCA balloon inflated at 8 atms for 8 secs. PTCA balloon inflated a t 8 atms for 8 secs. PTCA balloon inflated at 8 atms for 6 secs. PTCA balloon inflated at 6 atms for 6 secs. 2x10 Angiosculpt Cutting balloon catheter was inserted 2x10 Angiosculpt Cutting balloon ella ter was inserted Cutting balloon catheter was advanced to the lesion in the LAD, mid. Cutting balloon catheter was advanced to the lesion in the LAD, mid. 2.25x38 Synergy Drug Eluting wayne nt was inserted. Drug Eluting stent was advanced across the lesion in the LAD, mid. 3x16 Synergy Drug Eluting stent was inserted. Drug Eluting stent was advanced across the lesion in the LAD, mid. 3x8 N C Emerge Balloon catheter was inserted. Balloon catheter was inserted post stent. Angiogram performed post stent deployment. Contrast was injected through the sheath and the Right Iliac and Femoral molly ry were assessed for possible closure device. The arterial sheath was exchanged to a standard sheath . The arterial sheath was pulled and a Mynx closure device was deployed for hemostasis. The arterial sheath was pulled and a TR Band was applied for hemostasis. 14cc of air INTERVENTION INFORMATION LESION SITE: LAD (Mid) Lesion Complexity: High/C, lesion at bifurcation: No, thrombus present: No, lesion length: 54 mm, cul prit lesion: Yes, In-stent restenosis: Yes Pre Stenosis: 90 % Pre intervention JASPREET flow: 2 PROCEDURE: Balloon Angioplasty, Cutting Balloon Angioplasty, Drug Eluting Stent with pre and post dilatation Post Stenosis: 0 % Post intervention JASPREET flow: 3 Lesion Devices: Wirescantronic 6 Fr EBU3.75 100cm Guide Catheter Masters .014 BMW Wake Straight 190cm Vikas Sci EMERGE MR 2.00x12 BALLOON [employer] Solutions Angiosculpt RX 2.0x10 Scoring Balloon Vikas Sci Synergy MR LINDA 2.25x38 Vikas Sci Synergy MR LINDA 3.00x16 Vikas Sci NC EMERGE MR 3.00x08 BALLOON COMPLICATIONS No Complications PROCEDURE MEDICATIONS Versed 1 mg IV Fentanyl 50 mcg IV Oxygen: 3 L/min via nasal cannula Heparin diluted in 23cc Heparinized saline. Patient given 10cc IA of this solution. 02/27/2019 08:38:5 1 Heparin 6000 unit(s) IV 02/27/2019 09:23:20 Nitro 200 mcg IC 02/27/2019 09:24:51 Nitro 200 mcg IC 02/27/2019 09:24:51 Nitro 200 mcg IC 02/27/2019 09:32:40 Nitro 200 mcg IC 02/27/2019 09:38:03 Verapamil 2.5mg, Ntg 100mcgs, 2000 units of Heparin diluted in 23cc Heparinized saline. Patient give n 10cc IA of this solution. 02/27/2019 08:38:51 SUMMARY OF HEMODYNAMIC DATA Time AIR REST ECG 08:13:42 AO 107/75 (87) SA 08:41:22 LV 143/7, 26 09:01:56 LV 142/5, 26 09:02:02 LV 141/7, 25 09:03:09 LVp 145/-4, 20 09:03:14 AOp 117/68 (86) 09:03:19 AO 134/64 (81) 09:04:38 Signed By Serge Hendricks MD On 02/27/2019 10:11:22 AM Serge Hendricks MD
[2019-02-27 10:35] LABS: ACT Activated Clotting Time 169 sec (74-137)
--- NOTE | 2019-02-27 10:58 | EKG12_ITS ---
Test Reason : AM EKG Blood Pressure : / mmHG Vent. Rate : 072 BPM Atrial Rate : 072 BPM P-R Int : 174 ms QRS Dur : 116 ms QT Int : 400 ms P-R-T Axes : 052 -13 057 degrees QTc Int : 438 ms Normal sinus rhythm Anterior- Septal infarct , age undetermined Abnormal ECG When compared with ECG of 01-MAR-2019 02:42, MANUAL COMPARISON REQUIRED, DATA IS UNCONFIRMED Confirmed by APURVA ALEXIS, ELLIE ([id number]), avid editor GAL COY ([id number]) on 03/04/2019 2:23:24 PM Referred By: Angel Goldberg Confirmed By:ELLIE MIXON MD
--- NOTE | 2019-02-27 11:22 | PN_ITS ---
Progress Note Patient is scheduled for a post hospital follow-up with Ward Cramer Nurse Practitioner, on 03/18/2019 at 1:30 PM with the [facility].
--- NOTE | 2019-02-27 11:55 | CL.D_ITS ---
Patient Name: VANESSA MURO Study Date: 02/27/2019 Performing: Stu Dong MD Ht: 66.93 inches 170 cm : 1960 Wt: 308.65 lbs 140 kg Age: 58 Gender: male BSA: 2.43 PROCEDURE(S) PERFORMED SK56-[id number]/COR/LV PD38-KMR W OR WO PTCA, SINGLE CORONARY ARTERY CLINICAL PROFILE AND INDICATIONS Patient presents with NSTEMI for urgent cardiac cath Indications: Worsening Angina, Suspected CAD, Worsening Angina, Stable Known CAD, LV Dysfunction Heart Failure: NYHA Class: 1, Newly Diagnosed: No, Heart Failure Type: Systolic Stress/Imaging Stress/Image Study Performed: No Stress/Image Study Performed: No Angina Classification Anginal Classification w/in 2 Weeks: CCS IV CAD Presentations: Unstable angina. Non-STEMI. Symptom onset Date/Time: 02/22/2019 Time Not Availa ble Unstable angina. Comorbidities/Risk Factors: Current/Recent Smoker (< 1year) Hypertension Dyslipidemia Prior PCI Diabetes Mellitus: Diabetes Therapy: Oral Diabetes Mellitus: Diabetes Therapy: Insulin Chronic Lung Disease CONCLUSIONS Elevated Left Ventricular End Diastolic Pressure Left ventricular regional wall motion ab normalities with overall preserved LV systolic function / LV EF LVEF: by LV gram 55 % [place] Multivessel CAD Right to Left collateral flow RECOMMENDATIONS Risk factor modification Medical therapy Referred for immediate PCI DESCRIPTION OF PROCEDURE The patient arrived to the procedure lab. The risks and benefits of the procedure as well as a full d escription of our services here and current unavailability of surgical backup were fully explained to the patient and/or their significant other prior to the catheterization. The Timeout was completed, verifying the correct patient and procedure. The patient's procedural site was prepped and draped in the usual fashion. Local anesthetic was given subcutaneously to right radial region with Lidocaine 2% . Local anesthetic was given subcutaneously to right groin region with Lidocaine 2%. Using a modified Seldinger technique, arterial access was obtained via the right radial artery, a 6Fr sheath was inse rted., arterial access was obtained via the right femoral artery, a 6Fr sheath was inserted. Right C oronary Artery selective angiography was then performed in multiple views using a 5 Fr. 4.0 Fombell cat heter. Left Coronary Artery selective angiography was performed in multiple views using a 5 Fr. 4.0 Fombell catheter. Left Coronary Artery selective angiography was performed in multiple views using a 5 Fr. 4.0 Fombell catheter. Left Ventriculography was performed in ABDULLAHI projection using a 5 Fr. Pigtail catheter. LV to AO pullback pressures were then recorded.Contrast was injected through the s alfonso and the Right Iliac and Femoral artery were assessed for possible closure device.The arterial s alfonso was exchanged to a standard sheath. The arterial sheath was pulled and a Mynx closure device wa s deployed for hemostasis. The arterial sheath was pulled and a TR Band was applied for hemostasis. 1 4cc of air CORONARY ANGIOGRAPHY DOMINANCE: Right Dominant LEFT HEART ASSESSMENT Left Ventricular Ejection Fraction: by LV Gram 55 % Anterior Hypokinesis. Apical Hypokinesis Elevated Left Ventricular End Diastolic Pressure LVEDP: 26 mmHg LEFT MAIN: Proximal: Eccentric: 10 - 25 % Stenosis LEFT ANTERIOR DESCENDING ARTERY: MID LAD: Previously placed stent is patent with proximal 85% instent restenosis and distal long diffu se 90% instent restenosis with the distal LAD filling late, faintly, partially, and froom right to le ft collateral flow CIRCUMFLEX ARTERY: Mild luminal irregularities MID CIRC: Small caliber vessel: long; diffuse; 75 % Stenosis OM 1: Proximal - 50 % Stenosis RIGHT CORONARY ARTERY: Diffuse: 25 % Stenosis RT PDA: Mid - 50 % Stenosis COLLATERAL FLOW: Collateral flow from Right to Left VALVE FINDINGS: Normal Aortic Valve function Normal Mitral Valve function AORTIC ROOT: Angiographically normal COMPLICATIONS No Complications PROCEDURE MEDICATIONS Versed 1 mg IV Fentanyl 50 mcg IV Oxygen: 3 L/min via nasal cannula Heparin diluted in 23cc Heparinized saline. Patient given 10cc IA of this solution. 02/27/2019 08:38:5 1 Heparin 6000 unit(s) IV 02/27/2019 09:23:20 Nitro 200 mcg IC 02/27/2019 09:24:51 Nitro 200 mcg IC 02/27/2019 09:24:51 Nitro 200 mcg IC 02/27/2019 09:32:40 Nitro 200 mcg IC 02/27/2019 09:38:03 Verapamil 2.5mg, Ntg 100mcgs, 2000 units of Heparin diluted in 23cc Heparinized saline. Patient give n 10cc IA of this solution. 02/27/2019 08:38:51 SUMMARY OF HEMODYNAMIC DATA Time AIR REST ECG 08:13:42 AO 107/75 (87) SA 08:41:22 LV 143/7, 26 09:01:56 LV 142/5, 26 09:02:02 LV 141/7, 25 09:03:09 LVp 145/-4, 20 09:03:14 AOp 117/68 (86) 09:03:19 AO 134/64 (81) 09:04:38 Signed By Stu Dong MD On 02/27/2019 11:54:36 Stu Dong MD
[2019-02-27] MEDS: 0.9% Normal Saline 1,000 ML 150 ML IV (12:31)
[2019-02-27 13:26] LABS: Bedside Glucose 95 mg/dL (70-110)
--- NOTE | 2019-02-27 13:27 | CRPHASE1 ---
Patient Communication PHII Cardiac Rehab Discussed with Patient:: Yes Guide to Cardiac Rehab Given to Patient:: Yes Cardiac Rehab Facility Choice List Given to Patient:: Yes - [facility] Choice Program [facility] CR PHII:: Communication Given to CR, Refer to [facility] Sample Finisher:: Serge Hendricks PCP:: Manuelito Hughes Phase II Cardiac Rehab:: Yes Sessions:: 36 sessions - 3 days/wk, 12 weeks Phase I Charge:: Level I - Education Risk Factors/Lifestyle Smoking Status: Current every day smoker Hx Hypertension: Yes Hx Diabetes Mellitus Type 2: Yes Hx Dyslipidemia: Yes Hx Obesity: Yes Height: 5 ft 7 in Weight:: 307 lb BMI: 48.0 Risk Factor for Sedentary Lifestyle: Highest Risk Family History: Family History (Last Updated 02/25/19 @ 09:28 by Ward Cordero NP-C) Mother Alzheimer disease Father CAD (coronary artery disease), Onset Age: 59 Family History: Dementia, Heart Disease Past Cardiac Illness: Coronary Artery Disease, Previous PCI w/Stent Laboratory Values: Cardiac Rehab Phase I Labs Triglycerides 203 mg/dL (-199) H 02/25/19 06:15 Cholesterol 177 mg/dL (200) 02/25/19 06:15 104 mg/dL (0-130) 02/25/19 06:15 32 mg/dL (40-) L 02/25/19 06:15 Phase I Education Given On:: [place], Nutrition, Antiplatelet medication, CHF, Smoking cessation, Diabetes - Type II Issues Affecting Care:: Physical, Economic - States cannot afford nutritious food for weight loss. Knowledge of Condition:: Yes Learning Preferences: Verbal, Written, Audio/Visual, Demonstration Medical/Surgical History Angina:: Yes Diabetes Type II:: Yes Hypertension:: Yes Dyslipidemia:: Yes PTCA:: Yes Cardiac Rehabilitation Info Cardiac Rehabilitation Program Information: Cardiac Rehabilitation is important for patients like you who are recovering from a heart problem. Cardiac rehabilitation programs are recognized as integral to the continued care of the patient with coronary heart disease. The cardiac rehabilitation program is designed to optimize a patient's physical, psychological, and social functioning. Health hospice spiritual care coordinator work in cardiac rehabilitation programs and assist you with getting the treatments you need to get stronger and healthier - like exercise, healthy eating habits, and medications. Cardiac rehabilitation has been show to help people with heart problems live longer and have better life enjoyment than people who do not go to cardiac rehabilitation. Please contact the Cardiac Rehabilitation Program at [facility] at in two weeks if you have not heard from them.
--- NOTE | 2019-02-27 13:37 | CRPH1.INST_ITS ---
General Education CAD and cardiac anatomy and function:: Patient communicates acknowledgment, Needs reinforcement Explanation of diagnoses and procedures:: Patient communicates acknowledgment, Needs reinforcement Sign/Symptoms of [place]:: Patient communicates acknowledgment, Needs reinforcement Antiplatelet therapy: Patient communicates acknowledgment, Needs reinforcement Proper use of NTG-SL: Patient communicates acknowledgment, Needs reinforcement Emergency procedures and activation of EMS: Patient communicates acknowledgment, Needs reinforcement Compliance of all prescribed medications: Patient communicates acknowledgment, Needs reinforcement Smoking Patient Nicotine/Smoking Risk Factors Are:: Cigarettes Recommendations Include:: Smoking cessation strategies/Smoking packet, Second- hand smoke recommendation, Participation in a smoking cessation program Nicotine/Smoking Response Code:: Patient communicates acknowledgment, Needs reinforcement Dyslipidemia Patient Dyslipidemia Risk Factors Are:: Total Cholesterol, Triglycerides, HDL, LDL Recommendations Include:: Lipid profile provided, Reviewed NCEP/ATP guidelines, Therapeutic Lifestyle Change dietary guidelines Dyslipidemia Response Code:: Patient communicates acknowledgment, Needs reinforcement Overweight/Obesity Patient Overweight/Obesity Risk Factors Are:: Obesity - > or = 30 Recommendations Include:: Weight loss of 5-10%, Reduced calorie diet, Exercise 5-7 times/week Overweight/Obesity:: Patient communicates acknowledgment, Needs reinforcement Hypertension Recommendations Include:: BP <130/80 if diabetic, DASH dietary guidelines, Decrease/maintain normal body weight, Moderation of ETOH Hypertension:: Patient communicates acknowledgment, Needs reinforcement Heart Disease Patient Heart Disease Risk Factors Are:: Family history of heart disease < 65 years old, Previous cardiac event Recommendations Include:: Educated family members of their risk, Educated family members of importance of prevention of heart disease Heart Disease Response Code:: Patient communicates acknowledgment, Needs reinforcement Diabetes Patient Diabetes Risk Factors Are:: Elevated blood sugars Recommendations Include:: Maintain fasting blood sugars 70-110 md/dL, Maintain HgbA1c of 6% or less, Monitor blood sugar as prescribed, Diabetic dietary toni delines, Decrease/maintain body weight Diabetes:: Patient communicates acknowledgment, Needs reinforcement Metabolic Syndrome Recommendations Include:: Patient is diabetic Metabolic Syndrome Response Code:: Not instructed Sedentary Patient Sedentary Risk Factors Are:: Lack of regular exercise Recommendations Include:: Aerobic exercise 5-7 times/week for 20-30 minutes continuously, Benefits of regular exercise, Discussed home walking program, Monitored Outpatient Cardiac Rehab Sedentary Response Code:: Patient communicates acknowledgment, Needs reinforcement Stress Patient Stress Risk Factors Are:: Patient denies stress as a risk factor Recommendations Include:: Identification of stressors, and assessment of coping skills, Stress management techniques Stress Response Code:: Needs reinforcement
--- NOTE | 2019-02-27 13:42 | PN.CARD_ITS ---
Subjectve: The patient is now status post diagnostic cardiac catheterization and subsequent LAD PCI. He appears to be resting comfortably at this time. Objective: Vital Signs Temp Pulse Resp BP Pulse Ox 98.5 F 77 19 H 147/68 H 92 02/27/19 12:00 02/27/19 13:00 02/27/19 13:00 02/27/19 13:00 02/27/19 13:00 Oxygen Flow Rate (L/min) 3 Oxygen Delivery Method Nasal Cannula Weight: 307 lb Body Mass Index (BMI) 48.2 Intake and Output for Last 24 Hours 02/25/19 02/26/19 02/27/19 23:59 23:59 23:59 Intake Total 1580 / 1580 1443 / 1443 220 / 220 Output Total 800 / 800 Balance 1580 / 1580 1443 / 1443 -580 / -580 General: Awake, Alert, Oriented x 3, Cooperative, No Acute Distress HEENT: Atraumatic, Normocephalic, PERRL, EOMI, Sclera Non Icteric Oral: Moist Mucosa Neck: Supple, Good ROM, No JVD Lungs: Diminished Tyler Bases Cardiovascular: Regular Rhythm, Normal S1, Normal S2 Vascular: Normal Femoral Pulses, Normal Radial Pulses Abdomen: Bowel Sounds Present, Soft, Non Tender, Obese Extremities: Trace RLE Edema, Trace LLE Edema Neurological: No Focal Motor or Sensory Deficit Psych/Mental Status: Appropriate 02/27/19 04:30: Sodium 142, Potassium 4.3, Chloride 103, Carbon Dioxide 33.0 H, Anion Gap 6, BUN 41 H, Creatinine 1.23, Est GFR (MDRD) Af Amer 78, Est GFR (MDRD) Non-Af 65, BUN/Creatinine Ratio 33.3 H, Glucose 196 H, Calcium 8.9 02/27/19 04:30: WBC 9.5, RBC 5.18, Hgb 14.4, Hct 44.9, MCV 86.7, MCH 27.8, MCHC 32.1, Plt Count 122 L, MPV 10.3, Immature Gran % (Auto) 0.900, Neut % (Auto) 84.5 H, Lymph % (Auto) 8.1 L, Sebastian % (Auto) 6.3, Eos % (Auto) 0.1, Baso % (Auto) 0.1, Absolute Neuts (auto) 8.0 H, Nucleated RBC % 0 08/02/19 04:30: PT 14.6, INR 1.2, APTT 32.7 Rhythm: Sinus rhythm EKG: Sinus rhythm; anteroseptal PA pattern of indeterminate age cannot be excluded Cardiac Cath: CORONARY ANGIOGRAPHY DOMINANCE: Right Dominant LEFT HEART ASSESSMENT Left Ventricular Ejection Fraction: by LV Gram 55 % Anterior Hypokinesis. Apical Hypokinesis Elevated Left Ventricular End Diastolic Pressure LVEDP: 26 mmHg LEFT MAIN: Proximal: Eccentric: 10 - 25 % Stenosis LEFT ANTERIOR DESCENDING ARTERY: MID LAD: Previously placed stent is patent with proximal 85% instent restenosis and distal long diffuse 90% instent restenosis with the distal LAD filling late, faintly, partially, and froom right to left collateral flow CIRCUMFLEX ARTERY: Mild luminal irregularities MID CIRC: Small caliber vessel: long; diffuse; 75 % Stenosis OM 1: Proximal - 50 % Stenosis RIGHT CORONARY ARTERY: Diffuse: 25 % Stenosis RT PDA: Mid - 50 % Stenosis COLLATERAL FLOW: Collateral flow from Right to Left VALVE FINDINGS: Normal Aortic Valve function Normal Mitral Valve function AORTIC ROOT: Angiographically normal PCI: Successful PTCA/LINDA with 2.0 x 10 angiosculpt, followed with a 2.25 x 38 Promus Synergy, followed immediately upstream with a 3.0 x 16 Promus Synergy, post dilated proximally with a 3.0 x 8 NC Balloon; 90%-->0%, no dissection and no compromise of R to L collateral septal director of maternity services. Medical Necessity - Tobacco Use Smoking Status: Current every day smoker Tobacco Use: Pipe Assessment/Plan 1. CAD status post LAD PCI The patient is now status post repeat diagnostic cardiac catheterization. He did demonstrate evidence of LAD in-stent restenosis. He subsequently underwent repeat LAD PCI. At the present time the patient continues without acute symptoms. He will continue to be monitored. He will continue evaluation as noted above. 2. Ischemic mediated cardiomyopathy The patient has undergone subsequent evaluation with a transthoracic echocardiogram. Again he is noted to have left ventricular regional wall motion abnormalities with an overall preserved LVEF of approximately 65%. He is also is now status post repeat diagnostic cardiac catheterization and repeat LAD PCI. The patient will continue to be monitored. He will continue medical therapy. 3. Hyperlipidemia The patient will continue risk factor evaluation care. 4. Hypertension The patient will continue medical management and follow-up. 5. COPD exacerbation/pneumonia The patient will continue under the care of internal medicine and Dr. Manzo pulmonology and critical care medicine. 6. Diabetes mellitus The patient will continue evaluation care per internal medicine. This note was generated using a voice recognition system and there may be inco rrect words, spelling or punctuation that were not noted when reviewing the office note prior to saving.
--- NOTE | 2019-02-27 14:29 | CASEMGMT ---
Per Noelle EID, pt states he is not homebound at this time but is agreeable to CCN at this time. Referral made for CCN via [facility] and message left for Regan at [facility] at this time. Annabelle TINAJERO CM
[2019-02-27] MEDS: guaiFENesin 1,200 MG Tablet 1200 MG PO ×2 (15:06→21:27)
[2019-02-27] MEDS: Carvedilol 25 MG Tablet PO ×2 (15:06→21:27)
[2019-02-27] MEDS: Isosorbide Mononitrate 30 MG Tablet PO (15:07)
[2019-02-27] MEDS: Pantoprazole Sodium 40 MG Tablet PO (15:09)
[2019-02-27] MEDS: amLODIPine 10 MG Tablet PO (15:12)
[2019-02-27] MEDS: Lisinopril 40 MG Tablet PO (15:13)
[2019-02-27] MEDS: Pregabalin 50 MG Capsule PO ×2 (15:20→21:27)
[2019-02-27] MEDS: Ceftriaxone 1 GM/50 ML BAG IV (15:21)
--- NOTE | 2019-02-27 15:49 | CASEMGMT ---
Social Work Met with patient to provide food and financial resources for pt upon discharge. Inquired about HHC or CCN referrals at [place] - pt stated he will not be homebound for HHC but would like the CCN referral. Pt states he does have support from girlfriend at home. Appreciated visit and resources. Will notify SW if he needs anything further. CCN can call his cell phone to schedule an appt at [phone]. CASSANDRA PopeW
[2019-02-27 17:46] LABS: Bedside Glucose 248 mg/dL (70-110)
[2019-02-27] MEDS: Insulin Lispro 100 UNIT/ML INSULN.PEN 30 UNIT SC (18:21)
[2019-02-27] MEDS: Insulin Lispro 100 UNIT/ML INSULN.PEN SC ×2 (18:21→21:29)
[2019-02-27] MEDS: Atorvastatin Calcium 80 MG Tablet PO (21:27)
[2019-02-27 21:41] LABS: Bedside Glucose 251 mg/dL (70-110)
[2019-02-28] VITALS (21 sets, daily range): BP systolic 91–168; BP diastolic 42–80; PULSE 53–92; RESP 12–19; TEMP 36.2–36.7; O2SAT 88–95
[2019-02-28] MEDS: Ipratropium/Albuterol Sulfate 3 ML AMPUL.NEB INHALATION ×5 (02:52→19:02)
[2019-02-28] MEDS: 0.9% NaCl Peripheral Flush Adult/Peds IV ×3 (05:14→20:14)
[2019-02-28 05:21] LABS: Hematocrit 44.5 % (40-54); Hemoglobin 14.1 g/dL (13.0-16.5); Mean Corp Hgb Conc 31.7 g/dL (32-36); Mean Corpuscular Hgb 27.9 pg (27.0-32.0); Mean Corpuscular Volume 87.9 fL (80-94); Mean Platelet Vol. 10.9 fl (6.2-12.0); Platelet Count 109 K/mm3 (150-450); RBC Distribution Width CV 16.8 % (11.6-14.6); RBC Distribution Width SD 54.3 fl (35.1-43.9); Red Blood Count 5.06 M/mm3 (4.6-6.2); White Blood Count 8.4 K/mm3 (4.4-11.0)
[2019-02-28 05:30] LABS: Anion Gap 5 (5-15); BUN 34 mg/dL (7-18); BUN/Creat Ratio 27.4 RATIO (10-20); Calcium,Total 8.6 mg/dL (8.5-10.1); Chloride 102 mmol/L (98-107); Creatinine, Serum 1.24 mg/dL (0.70-1.30); EST Glomerular Filtration Rate 64 mL/min (>60); Est Glom Filt Rate - Afr Amer 77 mL/min (>60); Estimated Creatinine Clearance 62.19 ml/min; Glucose 162 mg/dL (74-106); Potassium 4.6 mmol/L (3.5-5.1); Sodium Level 141 mmol/L (136-145)
--- NOTE | 2019-02-28 06:44 | PCM.PN.PUL ---
Patient Problems: Active and Suspected Problems (Last Updated 02/27/19 @ 13:13 by Ward Cordero NP-C) DM2 (diabetes mellitus, type 2) (Acute) S/P hip replacement (Acute) bilateral Pneumococcal pneumonia (Acute) Acute respiratory insufficiency (Acute) COPD exacerbation (Suspected) Chest pain (Acute) Subjective: The patient was seen and examined at the bedside this morning. Events from the last 24 hours have been reviewed. The patient is currently afebrile, hemodynamically stable and maintaining appropriate oxygen saturations on 3 L/min via nasal cannula. The patient did undergo cardiac catheterization yesterday and did undergo drug-eluting stent placement to the mid LAD. Following cardiac intervention, the patient was transferred to the ICU for overnight monitoring. No issues were identified by the nursing staff overnight. The patient denies the presence of shortness of breath or chest pain this morning. Objective: The patient's most recent lab work, culture data and imaging studies have all been personally reviewed. Respiratory viral panel was negative. Strep and urine Legionella antigens were negative. Expectorated sputum culture appears to be normal respiratory woody. Surface echocardiogram revealed mild concentric LVH with an ejection fraction of 65%. - Physical Exam General: Alert, Oriented x3, Cooperative, No apparent distress HEENT: Atraumatic, PERRLA, Normocephalic Oral: No Gingival or Mucosal Lesions/ Ulcerations Neck: Supple, No Nodes, Trachea Midline Lungs: - - Globally diminished air movement throughout all lung fuller. Cardiovascular: Regular rate, Regular Rhythm, Normal S1, Normal S2 Abdomen: Bowel Sounds Present, Soft, Non Tender, Obese Extremities: No clubbing, No cyanosis Skin: No breakdown Musculoskeletal: No Tenderness to Palpation of Joints or Extremities, No Muscle Wasting Lymphatic: No Cervical, Supraclavicular, or Inguinal Adenopathy Neurological: Cranial nerves II-XII grossly intact, Neuro grossly intact Psych/Mental Status: Alert and oriented to time, place, person, mood and affect Vital Signs Temp Pulse Resp BP Pulse Ox 97.9 F 53 L 13 111/42 L 94 02/28/19 04:00 02/28/19 06:00 02/28/19 06:00 02/28/19 06:00 02/28/19 06:00 Oxygen Flow Rate (L/min) 3 Oxygen Delivery Method Nasal Cannula Weight: 307 lb Body Mass Index (BMI) 48.2 Intake and Output for Last 24 Hours 08/01/19 08/02/19 08/03/19 23:59 23:59 23:59 Intake Total 1443 / 1443 2345 / 2345 200 / 200 Output Total 2150 / 2150 Balance 1443 / 1443 195 / 195 200 / 200 Microbiology Past 72 Hours 02/24/19 00:13 Gram Stain - Final Sputum, Expectorated/Coughed Respiratory Culture - Final 02/24/19 13:15 Respiratory Panel (PCR) - Final Mucosa - Nose Laboratory Tests Past 24 Hrs 02/27/19 02/28/19 02/28/19 09:50 05:00 05:00 WBC 8.4 RBC 5.06 Hgb 14.1 Hct 44.5 MCV 87.9 MCH 27.9 MCHC 31.7 L RDW Std Deviation 54.3 H RDW Coeff of Tariq 16.8 H Plt Count 109 L MPV 10.9 Activated Clotting Time 169 H Sodium 141 Potassium 4.6 Chloride 102 Carbon Dioxide 34.0 H Anion Gap 5 BUN 34 H Creatinine 1.24 Estim Creat Clear Calc 62.19 Est GFR (MDRD) Af Amer 77 Est GFR (MDRD) Non-Af 64 BUN/Creatinine Ratio 27.4 H Glucose 162 H Calcium 8.6 POC Glucose 02/27/19 02/27/19 02/27/19 21:21 17:42 13:16 POC Glucose 251 H 248 H 95 02/27/19 06:36 POC Glucose 161 H Clinical Impression(s) from Imaging Studies Chest X-Ray 02/22/19 16:57 IMPRESSION: Mild left upper lobe pneumonia is suspected. Electronically Signed: Shaun Cui MD at 17:29 EDT Tel , Service support , Chest X-Ray 02/26/19 05:55 IMPRESSION: Progressive infiltration and atelectasis at the left lung base with blunting of the left phrenic angle. Stable bilateral pleural thickening. Electronically Signed: Jamarcus Fernando, at 12:58 EDT , Service support , Medical Necessity - Tobacco Use Smoking Status: Current every day smoker Tobacco Use: Pipe Assessment/Plan All Active Problems (Last Updated 02/27/19 @ 13:13 by TWIN DensonC) DM2 (diabetes mellitus, type 2) (Acute) S/P hip replacement (Acute) Pneumococcal pneumonia (Acute) Acute respiratory insufficiency (Acute) Chest pain (Acute) RECOMMENDATIONS: 1. Plan to complete a treatment course of antibiotics x7 days. 2. Transition from IV steroids to prednisone 40 mg daily with plans for a taper at discharge. 3. Wean supplemental oxygen to maintain saturations at or above 90%. 4. Encourage incentive spirometer use and mobilize patient as tolerated. 5. Perform walking oximetry study prior to consideration for discharge from the hospital. Anticipate home-going oxygen need. 6. Outpatient PFTs and pulmonary follow-up was recommended within 2 weeks of discharge from the hospital. 7. Consider outpatient polysomnogram. IMPRESSIONS: 1. Acute hypoxemic respiratory insufficiency Potentially related to COPD exacerbation in the setting of community-acquired pneumonia. However, the patient is never undergone formal pulmonary function studies to actually confirm a diagnosis of obstructive lung disease. Nevertheless, the patient does have an extensive smoking history and I would agree with continuing bronchodilators, steroids and antibiotics as ordered. Wean supplemental oxygen to maintain saturations at or above 90%. Continue aggressive bronchopulmonary hygiene and mobilize patient as tolerated. Complete smoking cessation was strongly advised. The patient needs to complete a walking oximetry test prior to consideration for discharge from the hospital. He ideally should follow-up in the pulmonary medicine clinic within 2 weeks of his discharge. Orders for baseline pulmonary function studies can be obtained at that time. I would also recommend that the patient undergo a formal diagnostic polysomnogram as well. I would plan to complete a total of 7 days of antibiotics and plan to discharge on a prednisone taper. 2. Long-standing tobacco dependency As noted above, recommend outpatient pulmonary function studies to quantify lung function. Smoking cessation is advisable. Nicotine replacement therapy can be offered to the patient while he is admitted to the hospital. 3. Coronary artery disease status post drug-eluting stent placement to mid LAD Continue current medical management per cardiology recommendations. 4. Morbid obesity/diabetes mellitus/hypertension/hyperlipidemia/GERD Complicates care, management, recovery and prognosis. Okay to continue home medications as indicated. This note was generated with Fluo[employer]rication software. It may contain incorrect words, spelling, and punctuation that were not noted in checking the note before signing. Code Visit Inpatient E&M: 23518 Subs Hosp L2
[2019-02-28 06:56] LABS: Bedside Glucose 135 mg/dL (70-110)
--- NOTE | 2019-02-28 07:29 | PN_ITS ---
Patient Problems: Active and Suspected Problems (Last Updated 02/27/19 @ 13:13 by Ward Cordero NP- C) DM2 (diabetes mellitus, type 2) (Acute) S/P hip replacement (Acute) bilateral Pneumococcal pneumonia (Acute) Acute respiratory insufficiency (Acute) COPD exacerbation (Suspected) Chest pain (Acute) Subjective: Patient underwent left heart catheterization on 02/27/2019 with PCI with LINDA to mid LAD lesion. Subsequently transferred to the intensive care unit where patient was monitored overnight. Per nursing staff patient had a relatively uneventful night. Blood pressure has however been running on the low side with systolic 90s. Objective: GENERAL: Dyspneic at rest HEENT: Atraumatic; EYES; Anicteric, NECK; supple, normal thyroid, RESPIRATORY: Diminished to auscultation bilaterally, CARDIOVASCULAR: Regular S1 S2, GI: soft, non-tender, normoactive bowel sounds, : No Renal angle tenderness; EXTREMITIES: No edema, no clubbing, MUSCULOSKELETAL: No Joint Tenderness; NEURO: Awake; no lateralizing signs. SKIN: No Rash PSYCH; Normal affect Vitals/I&O's: Vital Signs Temp Pulse Resp BP Pulse Ox 97.9 F 78 16 111/42 L 91 02/28/19 04:00 02/28/19 06:49 02/28/19 06:49 02/28/19 06:00 02/28/19 06:49 Oxygen Flow Rate (L/min) 2 Oxygen Delivery Method Nasal Cannula Weight: 139.253 kg Body Mass Index (BMI) 48.2 Intake and Output for Last 24 Hours 02/26/19 02/27/19 02/28/19 23:59 23:59 23:59 Intake Total 1443 / 1443 2345 / 2345 200 / 200 Output Total 2150 / 2150 Balance 1443 / 1443 195 / 195 200 / 200 Microbiology Past 72 Hours 02/24/19 00:13 Sputum, Expectorated/Coughed Gram Stain - Final 02/24/19 00:13 Sputum, Expectorated/Coughed Respiratory Culture - Final 02/24/19 13:15 Mucosa - Nose Respiratory Panel (PCR) - Final Laboratory Results 02/27/19 09:50: Activated Clotting Time 169 H 02/27/19 13:16: POC Glucose 95 02/27/19 17:42: POC Glucose 248 H 02/27/19 21:21: POC Glucose 251 H 02/28/19 05:00: WBC 8.4, RBC 5.06, Hgb 14.1, Hct 44.5, MCV 87.9, MCH 27.9, MCHC 31.7 L, RDW Std Deviation 54.3 H, RDW Coeff of Tariq 16.8 H, Plt Count 109 L, MPV 10.9 02/28/19 05:00: Sodium 141, Potassium 4.6, Chloride 102, Carbon Dioxide 34.0 H, Anion Gap 5, BUN 34 H, Creatinine 1.24, Estim Creat Clear Calc 62.19, Est GFR (MDRD) Af Amer 77, Est GFR (MDRD) Non-Af 64, BUN/Creatinine Ratio 27.4 H, Glucose 162 H, Calcium 8.6 02/28/19 06:49: POC Glucose 135 H Current Medications Acetaminophen (Tylenol) 650 mg PO Q6H PRN PRN PRN Reason: Mild Pain (0-2/10) Al Hydroxide/Mg Hydroxide (Mylanta Ii) 30 ml PO Q6H PRN PRN PRN Reason: Gastric Burning Albuterol Sulfate (Ventolin Aerosols) 2.5 mg INHALATION Q2H PRN PRN PRN Reason: SHORTNESS OF BREATH Albuterol/Ipratropium (Duoneb) 3 ml INHALATION Q4H.RT [facility] Last Admin: 02/28/19 06:48 Dose: 3 ml Documented by: Amlodipine Besylate (Norvasc) 10 mg PO DAILY [facility] Last Admin: 02/27/19 15:12 Dose: 10 mg Documented by: Aspirin (Aspirin) 325 mg PO DAILY@0800 [facility] Last Admin: 02/27/19 06:39 Dose: 325 mg Documented by: Atorvastatin Calcium (Lipitor) 80 mg PO QHS [facility] Last Admin: 02/27/19 21:27 Dose: 80 mg Documented by: Atropine Sulfate () 0.5 mg IV UD PRN PRN Reason: HR <50 bpm Carvedilol (Coreg) 25 mg PO BID [facility] Last Admin: 02/27/19 21:27 Dose: 25 mg Documented by: Chlorthalidone (Hygroton) 25 mg PO DAILY [facility] Last Admin: 02/27/19 18:22 Dose: Not Given Documented by: Clopidogrel Bisulfate (Plavix) 75 mg PO DAILY [facility] Last Admin: 02/27/19 06:39 Dose: 75 mg Documented by: Dextrose (D50w Syringe) 0 gm IV X1 PRN; Protocol PRN Reason: Hypoglycemia Diazepam (Valium) 5 mg PO Q6H PRN PRN PRN Reason: BACK SPASMS/ANXIETY Glucagon () 1 mg IM .X1 PRN PRN Reason: Hypoglycemia Guaifenesin (Mucinex) 1,200 mg PO BID [facility] Last Admin: 02/27/19 21:27 Dose: 1,200 mg Documented by: Heparin Sodium (Beef Lung) (Heparin 500 Unit/5 Ml (100/Ml)) 500 unit IV UD PRN PRN Reason: HEPARIN FLUSH Ceftriaxone Sodium (Rocephin) 1 gm in 50 mls @ 100 mls/hr IV Q24 [facility] Last Admin: 02/27/19 15:21 Dose: 100 mls/hr Documented by: Sodium Chloride () 1,000 mls @ 15 mls/hr IV .Q48H [facility] Last Admin: 02/27/19 04:43 Dose: Not Given Documented by: Insulin Glargine (Lantus (Bkc)) 300 units SC QHS [facility] Last Admin: 02/27/19 21:37 Dose: 300 units Documented by: Insulin Human Lispro (Humalog Kwikpen (Bk)) 0 unit SC ACHS [facility]; Protocol Last Admin: 02/28/19 06:53 Dose: Not Given Documented by: Insulin Human Lispro (Humalog Kwikpen (Bk)) 30 unit SC TIDCM [facility] Last Admin: 02/27/19 18:21 Dose: 30 units Documented by: Isosorbide Mononitrate (Imdur) 30 mg PO DAILY [facility] Last Admin: 02/27/19 15:07 Dose: 30 mg Documented by: Labetalol HCl (Trandate) 5 mg IV X1 PRN PRN Reason: SBP > 160 when pulling sheath Lisinopril (Zestril) 40 mg PO DAILY [facility] Last Admin: 02/27/19 15:13 Dose: 40 mg Documented by: Melatonin (Melatonin) 3 mg PO QHS PRN PRN PRN Reason: INSOMNIA Last Admin: 02/22/19 22:42 Dose: 3 mg Documented by: Methylprednisolone (Solu-Medrol) 40 mg IV Q8 [facility] Last Admin: 02/28/19 05:12 Dose: 40 mg Documented by: Metoclopramide HCl (Reglan) 5 mg IV Q6H PRN PRN Reason: NAUSEA/VOMITING Morphine Sulfate () 2 mg IV Q4H PRN PRN PRN Reason: Mild back pain (0-2/10) Nitroglycerin (Nitrostat) 0.4 mg SUBLINGUAL Q5M PRN PRN Reason: CARDIAC/CHEST PAIN Ondansetron HCl (Zofran) 4 mg IV Q8H PRN PRN PRN Reason: NAUSEA/VOMITING Pantoprazole Sodium (Protonix) 40 mg PO DAILY [facility] Last Admin: 02/27/19 15:09 Dose: 40 mg Documented by: Pregabalin (Lyrica) 50 mg PO BID [facility] Last Admin: 02/27/19 21:27 Dose: 50 mg Documented by: Sodium Chloride () 10 - 40 ml IV UD PRN PRN Reason: SALINE FLUSH Last Admin: 02/28/19 05:14 Dose: 20 ml Documented by: Sodium Chloride () 500 ml IV BOLUS PRN PRN Reason: VASO-VAGAL PROTOCOL Medical Necessity - Tobacco Use Smoking Status: Current every day smoker Tobacco Use: Pipe Assessment/Plan All Active Problems (Last Updated 02/27/19 @ 13:13 by Ward Cordero NP-C) DM2 (diabetes mellitus, type 2) (Acute) S/P hip replacement (Acute) Pneumococcal pneumonia (Acute) Acute respiratory insufficiency (Acute) Chest pain (Acute) Patient is a 58-year-old gentleman with BMI of 8.2, diabetes mellitus type 2, history of tobacco use who presented with progressive shortness of breath chest x-ray obtained on admission demonstrated Mild left upper lobe pneumonia , admitted to regular nursing floor transferred to the progressive care unit after patient developed chest pain with elevated enzymes consistent with acute NSTEMI 1. Pneumonia: Suspected to be secondary to streptococcal pneumonia. Patient is admitted to regular floor. Patient placed on Rocephin and Zithromax. He was also placed on oxygen titrated to keep also is greater than 90. Cultures have remained negative to date. In view of patient remaining persistently dyspneic at rest with relative hypoxia consultation was placed pulmonary medicine seen by Dr. Manzo's notes and recommendations reviewed ~19: Patient breathing continues to improve 2. Acute non-STEMI being managed medically with dual antiplatelet therapy, statin therapy, beta-blockers and ALLISON inhibitors. 2D echo obtained demonstrated segmental dysfunction with preserved ejection fraction of 65%. Patient was also noted to have mild concentric left ventricular hypertrophy patient has been seen in consultation by Dr. Dong with plans for patient to undergo repeat diagnostic cardiac catheterization on 02/27/2019. ~02/27/2019 Patient to undergo left heart catheterization ~02/27/19. Patient underwent left heart catheterization with intervention (PCI with LINDA to mid LAD lesion) ~02/28/19: Patient seen denies any chest pain had a relatively uneventful night. Plan is for patient to be transferred from the ICU to the progressive care unit 3. Suspected sleep apnea patient undergo sleep study as outpatient 4. Diabetes mellitus type 2 did continue with patient home regimen in addition to Accu-Cheks before meals and at bedtime with sliding scale coverage 5. Dyslipidemia-patient is on statin therapy, continued at home dose 6. Hypertension-blood pressure controlled, home medications continued with dose adjustment as needed 7. Tobacco dependence counseled on cessation, offered nicotine patch for tobacco cravings 8. Morbid obesity with BMI of 48.2 weight loss advised 9. DVT prophylaxis SC Lovenox Code Visit Inpatient E&M: 24792 Subs Hosp L2
[2019-02-28] MEDS: Insulin Lispro 100 UNIT/ML INSULN.PEN 30 UNIT SC ×3 (08:06→16:39)
[2019-02-28] MEDS: Aspirin 325 MG Tablet PO (08:06)
[2019-02-28] MEDS: Isosorbide Mononitrate 30 MG Tablet PO (10:24)
[2019-02-28] MEDS: amLODIPine 10 MG Tablet PO (10:24)
[2019-02-28] MEDS: Lisinopril 40 MG Tablet PO (10:24)
[2019-02-28] MEDS: Chlorthalidone 50 MG Tablet 25 MG PO (10:24)
[2019-02-28] MEDS: Clopidogrel Bisulfate 75 MG Tablet PO (10:24)
[2019-02-28] MEDS: Ceftriaxone 1 GM/50 ML BAG IV (10:24)
[2019-02-28] MEDS: Carvedilol 25 MG Tablet PO ×2 (10:25→21:41)
[2019-02-28] MEDS: guaiFENesin 1,200 MG Tablet 1200 MG PO ×2 (10:25→21:45)
[2019-02-28] MEDS: Pantoprazole Sodium 40 MG Tablet PO (10:25)
[2019-02-28] MEDS: Pregabalin 50 MG Capsule PO ×2 (10:27→21:45)
--- NOTE | 2019-02-28 11:41 | PCM.PN.CARD ---
Subjectve: The patient is awake and alert. He denies any ongoing symptoms of chest discomfort. He feels his breathing is better overall. Objective: Vital Signs Temp Pulse Resp BP Pulse Ox 97.8 F 91 18 139/64 H 93 02/28/19 09:00 02/28/19 11:34 02/28/19 11:34 02/28/19 11:02 02/28/19 09:00 Oxygen Flow Rate (L/min) 2 Oxygen Delivery Method Nasal Cannula Weight: 307 lb Body Mass Index (BMI) 48.2 Intake and Output for Last 24 Hours 02/26/19 02/27/19 02/28/19 23:59 23:59 23:59 Intake Total 1443 / 1443 2345 / 2345 750 / 750 Output Total 2150 / 2150 700 / 700 Balance 1443 / 1443 195 / 195 50 / 50 General: Awake, Alert, Oriented x 3, Cooperative, No Acute Distress, Obese HEENT: Atraumatic, Normocephalic, PERRL, EOMI, Sclera Non Icteric Oral: Moist Mucosa Neck: Supple, Good ROM Lungs: Diminished Tyler Bases Cardiovascular: Regular Rhythm, Normal S1, Normal S2 Vascular: Normal Femoral Pulses, Normal Radial Pulses Abdomen: Bowel Sounds Present, Soft, Non Tender Extremities: Trace RLE Edema, Trace LLE Edema, - - Right radial artery site and right femoral artery site: Pulse 2+/4+; no obvious bruit; no obvious hematoma Neurological: No Focal Motor or Sensory Deficit Psych/Mental Status: Appropriate 02/28/19 05:00: WBC 8.4, RBC 5.06, Hgb 14.1, Hct 44.5, MCV 87.9, MCH 27.9, MCHC 31.7 L, Plt Count 109 L, MPV 10.9 02/28/19 05:00: Sodium 141, Potassium 4.6, Chloride 102, Carbon Dioxide 34.0 H, Anion Gap 5, BUN 34 H, Creatinine 1.24, Est GFR (MDRD) Af Amer 77, Est GFR (MDRD) Non-Af 64, BUN/Creatinine Ratio 27.4 H, Glucose 162 H, Calcium 8.6 Rhythm: Sinus rhythm EKG: Sinus rhythm; anteroseptal AK pattern of indeterminate age cannot be excluded; no acute ECG changes Medical Necessity - Tobacco Use Smoking Status: Current every day smoker Tobacco Use: Pipe Assessment/Plan 1. CAD status post LAD PCI The patient is now status post repeat diagnostic cardiac catheterization. He did demonstrate evidence of LAD in-stent restenosis. He subsequently underwent repeat LAD PCI. At the present time the patient continues without acute symptoms. He will continue to be monitored. He will continue evaluation as noted above. 2. Ischemic mediated cardiomyopathy The patient has undergone subsequent evaluation with a transthoracic echocardiogram. Again he is noted to have left ventricular regional wall motion abnormalities with an overall preserved LVEF of approximately 65%. He is also is now status post repeat diagnostic cardiac catheterization and repeat LAD PCI. The patient will continue to be monitored. He will continue medical therapy. 3. Hyperlipidemia The patient will continue risk factor evaluation care. 4. Hypertension The patient will continue medical management and follow-up. 5. COPD exacerbation/pneumonia The patient will continue under the care of internal medicine and Dr. Manzo pulmonology and critical care medicine. He continues to receive IV antibiotic therapy. 6. Diabetes mellitus The patient will continue evaluation care per internal medicine. Overall, the patient appears to be, from a cardiac standpoint, symptomatically hemodynamically stable. He is going to be transferred to the PCU for continued evaluation and care. This note was generated using a voice recognition system and there may be incorrect words, spelling or punctuation that were not noted when reviewing the office note prior to saving.
[2019-02-28] MEDS: Insulin Lispro 100 UNIT/ML INSULN.PEN SC ×3 (12:12→21:41)
[2019-02-28 12:25] LABS: Bedside Glucose 241 mg/dL (70-110)
[2019-02-28 16:45] LABS: Bedside Glucose 196 mg/dL (70-110)
[2019-02-28] MEDS: Morphine 2 MG/ML Syringe IV (20:14)
[2019-02-28] MEDS: Atorvastatin Calcium 80 MG Tablet PO (21:45)
[2019-02-28 21:55] LABS: Bedside Glucose 228 mg/dL (70-110)
[2019-03-01] VITALS (16 sets, daily range): BP systolic 94–111; BP diastolic 40–64; PULSE 58–87; RESP 12–20; TEMP 36.8; O2SAT 85–96
[2019-03-01] MEDS: Ipratropium/Albuterol Sulfate 3 ML AMPUL.NEB INHALATION ×6 (02:40→23:03)
[2019-03-01 03:21] LABS: Bedside Glucose 163 mg/dL (70-110)
[2019-03-01] MEDS: Morphine 2 MG/ML Syringe IV ×2 (05:46→22:46)
[2019-03-01 06:33] LABS: Anion Gap 6 (5-15); BUN 38 mg/dL (7-18); BUN/Creat Ratio 33.9 RATIO (10-20); Calcium,Total 8.7 mg/dL (8.5-10.1); Chloride 99 mmol/L (98-107); Creatinine, Serum 1.12 mg/dL (0.70-1.30); EST Glomerular Filtration Rate 72 mL/min (>60); Est Glom Filt Rate - Afr Amer 87 mL/min (>60); Estimated Creatinine Clearance 68.85 ml/min; Glucose 138 mg/dL (74-106); Potassium 4.1 mmol/L (3.5-5.1); Sodium Level 140 mmol/L (136-145)
--- NOTE | 2019-03-01 07:28 | PCM.PN.PUL ---
Patient Problems: Active and Suspected Problems (Last Updated 02/27/19 @ 13:13 by Ward Cordero NP-C) DM2 (diabetes mellitus, type 2) (Acute) S/P hip replacement (Acute) bilateral Pneumococcal pneumonia (Acute) Acute respiratory insufficiency (Acute) COPD exacerbation (Suspected) Chest pain (Acute) Subjective: The patient was seen and examined at the bedside this morning. Events from the last 24 hours have been reviewed. The patient is currently afebrile, hemodynamically stable and maintaining appropriate oxygen saturations on 3 L/min via nasal cannula. No overnight issues were identified by the nursing staff. Objective: The patient's most recent lab work, culture data and imaging studies have all been personally reviewed. Respiratory viral panel was negative. Strep and urine Legionella antigens were negative. Expectorated sputum culture appears to be normal respiratory woody. Surface echocardiogram revealed mild concentric LVH with an ejection fraction of 65%. - Physical Exam General: Alert, Oriented x3, Cooperative, No apparent distress HEENT: Atraumatic, PERRLA, Normocephalic Oral: Moist Mucosa, No Gingival or Mucosal Lesions/ Ulcerations Neck: Supple, No Nodes, Trachea Midline Lungs: No rhonchi, No wheeze, No rales, Diminished Cardiovascular: Regular rate, Regular Rhythm, Normal S1, Normal S2 Abdomen: Bowel Sounds Present, Soft, Non Tender, Obese Extremities: No clubbing, No cyanosis, No edema Skin: No breakdown Musculoskeletal: No Tenderness to Palpation of Joints or Extremities, No Muscle Wasting Lymphatic: No Cervical, Supraclavicular, or Inguinal Adenopathy Neurological: Cranial nerves II-XII grossly intact, Neuro grossly intact Psych/Mental Status: Alert and oriented to time, place, person, mood and affect Vital Signs Temp Pulse Resp BP Pulse Ox 98.0 F 60 18 121/72 H 93 02/28/19 20:00 03/01/19 06:55 03/01/19 06:55 02/28/19 20:00 03/01/19 06:55 Oxygen Flow Rate (L/min) 3 Oxygen Delivery Method Nasal Cannula Weight: 307 lb Body Mass Index (BMI) 48.2 Intake and Output for Last 24 Hours 02/27/19 02/28/19 03/01/19 23:59 23:59 23:59 Intake Total 2345 / 2345 1740 / 2040 700 / 700 Output Total 2150 / 2150 1600 / 2250 1300 / 1300 Balance 195 / 195 140 / -210 -600 / -600 Microbiology Past 72 Hours 02/24/19 00:13 Gram Stain - Final Sputum, Expectorated/Coughed Respiratory Culture - Final Laboratory Tests Past 24 Hrs 03/01/19 05:40 Sodium 140 Potassium 4.1 Chloride 99 Carbon Dioxide 35.0 H Anion Gap 6 BUN 38 H Creatinine 1.12 Estim Creat Clear Calc 68.85 Est GFR (MDRD) Af Amer 87 Est GFR (MDRD) Non-Af 72 BUN/Creatinine Ratio 33.9 H Glucose 138 H Calcium 8.7 POC Glucose 03/01/19 02/28/19 02/28/19 03:05 21:34 16:34 POC Glucose 163 H 228 H 196 H 02/28/19 12:11 POC Glucose 241 H Clinical Impression(s) from Imaging Studies Chest X-Ray 02/22/19 16:57 IMPRESSION: Mild left upper lobe pneumonia is suspected. Electronically Signed: Shaun Cui MD at 17:29 EDT Tel , Service support , Chest X-Ray 02/26/19 05:55 IMPRESSION: Progressive infiltration and atelectasis at the left lung base with blunting of the left phrenic angle. Stable bilateral pleural thickening. Electronically Signed: Jamarcus Fernando, at 12:58 EDT , Service support , Medical Necessity - Tobacco Use Smoking Status: Current every day smoker Tobacco Use: Pipe Assessment/Plan All Active Problems (Last Updated 02/27/19 @ 13:13 by Ward Cordero NP-C) DM2 (diabetes mellitus, type 2) (Acute) S/P hip replacement (Acute) Pneumococcal pneumonia (Acute) Acute respiratory insufficiency (Acute) Chest pain (Acute) RECOMMENDATIONS: 1. Plan to complete a treatment course of antibiotics x7 days. 2. Plan for steroid taper at discharge. 3. Wean supplemental oxygen to maintain saturations at or above 90%. 4. Encourage incentive spirometer use and mobilize patient as tolerated. 5. Perform walking oximetry study prior to consideration for discharge from the hospital. Anticipate home-going oxygen need. 6. Outpatient PFTs and pulmonary follow-up was recommended within 2 weeks of discharge from the hospital. 7. Consider outpatient polysomnogram. IMPRESSIONS: 1. Acute hypoxemic respiratory insufficiency Potentially related to COPD exacerbation in the setting of community-acquired pneumonia. However, the patient is never undergone formal pulmonary function studies to actually confirm a diagnosis of obstructive lung disease. Nevertheless, the patient does have an extensive smoking history and I would agree with continuing bronchodilators, steroids and antibiotics as ordered. Wean supplemental oxygen to maintain saturations at or above 90%. Continue aggressive bronchopulmonary hygiene and mobilize patient as tolerated. Complete smoking cessation was strongly advised. The patient needs to complete a walking oximetry test prior to consideration for discharge from the hospital. He ideally should follow-up in the pulmonary medicine clinic within 2 weeks of his discharge. Orders for baseline pulmonary function studies can be obtained at that time. I would also recommend that the patient undergo a formal diagnostic polysomnogram as well. I would plan to complete a total of 7 days of antibiotics and plan to discharge on a prednisone taper. 2. Long-standing tobacco dependency As noted above, recommend outpatient pulmonary function studies to quantify lung function. Smoking cessation is advisable. Nicotine replacement therapy can be offered to the patient while he is admitted to the hospital. 3. Coronary artery disease status post drug-eluting stent placement to mid LAD Continue current medical management per cardiology recommendations. 4. Morbid obesity/diabetes mellitus/hypertension/hyperlipidemia/GERD Complicates care, management, recovery and prognosis. Okay to continue home medications as indicated. This note was generated with [employer] dictation software. It may contain incorrect words, spelling, and punctuation that were not noted in checking the note before signing. Code Visit Inpatient E&M: 40316 Subs Hosp L2
[2019-03-01] MEDS: Aspirin 325 MG Tablet PO (09:08)
[2019-03-01] MEDS: Insulin Lispro 100 UNIT/ML INSULN.PEN 30 UNIT SC ×3 (09:08→17:15)
[2019-03-01] MEDS: Pantoprazole Sodium 40 MG Tablet PO (09:09)
[2019-03-01] MEDS: Clopidogrel Bisulfate 75 MG Tablet PO (09:09)
[2019-03-01] MEDS: guaiFENesin 1,200 MG Tablet 1200 MG PO ×2 (09:09→21:15)
[2019-03-01] MEDS: Chlorthalidone 50 MG Tablet 25 MG PO (09:09)
[2019-03-01] MEDS: Isosorbide Mononitrate 30 MG Tablet PO (09:13)
[2019-03-01] MEDS: Pregabalin 50 MG Capsule PO ×2 (09:16→21:15)
--- NOTE | 2019-03-01 09:45 | PCM.PN.HOSP ---
Patient Problems: Active and Suspected Problems (Last Updated 02/27/19 @ 13:13 by Ward Cordero NP-C) DM2 (diabetes mellitus, type 2) (Acute) S/P hip replacement (Acute) bilateral Pneumococcal pneumonia (Acute) Acute respiratory insufficiency (Acute) COPD exacerbation (Suspected) Chest pain (Acute) Subjective: Patient seen denies chest pain breathing continues to improve. He however remains significantly hypotensive with systolic blood pressure in the 80s. Did discontinue patient amlodipine this was discussed with Dr. Dong with cardiology. Patient has also remained on antibiotics for 7 days antibiotics discontinued Objective: GENERAL: cooperative HEENT: Atraumatic; EYES; Anicteric, NECK; supple, normal thyroid, RESPIRATORY: Diminished to auscultation bilaterally, CARDIOVASCULAR: Regular S1 S2, GI: soft, non-tender, normoactive bowel sounds, : No Renal angle tenderness; EXTREMITIES: No edema, no clubbing, MUSCULOSKELETAL: No Joint Tenderness; NEURO: Awake; no lateralizing signs. SKIN: No Rash PSYCH; Normal affect Vitals/I&O's: Vital Signs Temp Pulse Resp BP Pulse Ox 98.0 F 63 18 121/72 H 93 02/28/19 20:00 03/01/19 08:00 03/01/19 06:55 02/28/19 20:00 03/01/19 06:55 Oxygen Flow Rate (L/min) 3 Oxygen Delivery Method Nasal Cannula Weight: 139.253 kg Body Mass Index (BMI) 48.2 Intake and Output for Last 24 Hours 02/27/19 02/28/19 03/01/19 23:59 23:59 23:59 Intake Total 2345 / 2345 1740 / 2040 700 / 700 Output Total 2150 / 2150 1600 / 2250 1300 / 1300 Balance 195 / 195 140 / -210 -600 / -600 Microbiology Past 72 Hours 02/24/19 00:13 Sputum, Expectorated/Coughed Gram Stain - Final 02/24/19 00:13 Sputum, Expectorated/Coughed Respiratory Culture - Final Laboratory Results 02/28/19 12:11: POC Glucose 241 H 02/28/19 16:34: POC Glucose 196 H 02/28/19 21:34: POC Glucose 228 H 03/01/19 03:05: POC Glucose 163 H 03/01/19 05:40: Sodium 140, Potassium 4.1, Chloride 99, Carbon Dioxide 35.0 H, Anion Gap 6, BUN 38 H, Creatinine 1.12, Estim Creat Clear Calc 68.85, Est GFR (MDRD) Af Amer 87, Est GFR (MDRD) Non-Af 72, BUN/Creatinine Ratio 33.9 H, Glucose 138 H, Calcium 8.7 Current Medications Acetaminophen (Tylenol) 650 mg PO Q6H PRN PRN PRN Reason: Mild Pain (0-2/10) Al Hydroxide/Mg Hydroxide (Mylanta Ii) 30 ml PO Q6H PRN PRN PRN Reason: Gastric Burning Albuterol Sulfate (Ventolin Aerosols) 2.5 mg INHALATION Q2H PRN PRN PRN Reason: SHORTNESS OF BREATH Albuterol/Ipratropium (Duoneb) 3 ml INHALATION Q4H.RT [facility] Last Admin: 03/01/19 06:55 Dose: 3 ml Documented by: Aspirin (Aspirin) 325 mg PO DAILY@0800 [facility] Last Admin: 03/01/19 09:08 Dose: 325 mg Documented by: Atorvastatin Calcium (Lipitor) 80 mg PO QHS [facility] Last Admin: 02/28/19 21:45 Dose: 80 mg Documented by: Atropine Sulfate () 0.5 mg IV UD PRN PRN Reason: HR <50 bpm Carvedilol (Coreg) 25 mg PO BID [facility] Last Admin: 03/01/19 09:13 Dose: Not Given Documented by: Chlorthalidone (Hygroton) 25 mg PO DAILY [facility] Last Admin: 03/01/19 09:09 Dose: 25 mg Documented by: Clopidogrel Bisulfate (Plavix) 75 mg PO DAILY [facility] Last Admin: 03/01/19 09:09 Dose: 75 mg Documented by: Dextrose (D50w Syringe) 0 gm IV X1 PRN; Protocol PRN Reason: Hypoglycemia Diazepam (Valium) 5 mg PO Q6H PRN PRN PRN Reason: BACK SPASMS/ANXIETY Glucagon () 1 mg IM .X1 PRN PRN Reason: Hypoglycemia Guaifenesin (Mucinex) 1,200 mg PO BID [facility] Last Admin: 03/01/19 09:09 Dose: 1,200 mg Documented by: Heparin Sodium (Beef Lung) (Heparin 500 Unit/5 Ml (100/Ml)) 500 unit IV UD PRN PRN Reason: HEPARIN FLUSH Sodium Chloride () 1,000 mls @ 15 mls/hr IV .Q48H [facility] Last Admin: 02/28/19 10:27 Dose: Not Given Documented by: Insulin Glargine (Lantus (Bk)) 300 units SC QHS [facility] Last Admin: 02/28/19 21:53 Dose: 300 units Documented by: Insulin Human Lispro (Humalog Kwikpen ([facility])) 0 unit SC ACHS [facility]; Protocol Last Admin: 03/01/19 08:11 Dose: Not Given Documented by: Insulin Human Lispro (Humalog Kwikpen ([facility])) 30 unit SC TIDCM [facility] Last Admin: 03/01/19 09:08 Dose: 30 units Documented by: Isosorbide Mononitrate (Imdur) 30 mg PO DAILY [facility] Last Admin: 03/01/19 09:13 Dose: 30 mg Documented by: Labetalol HCl (Trandate) 5 mg IV X1 PRN PRN Reason: SBP > 160 when pulling sheath Lisinopril (Zestril) 40 mg PO DAILY [facility] Last Admin: 02/28/19 10:24 Dose: 40 mg Documented by: Melatonin (Melatonin) 3 mg PO QHS PRN PRN PRN Reason: INSOMNIA Last Admin: 02/22/19 22:42 Dose: 3 mg Documented by: Metoclopramide HCl (Reglan) 5 mg IV Q6H PRN PRN Reason: NAUSEA/VOMITING Morphine Sulfate () 2 mg IV Q4H PRN PRN PRN Reason: Mild back pain (0-2/10) Last Admin: 03/01/19 05:46 Dose: 2 mg Documented by: Nitroglycerin (Nitrostat) 0.4 mg SUBLINGUAL Q5M PRN PRN Reason: CARDIAC/CHEST PAIN Ondansetron HCl (Zofran) 4 mg IV Q8H PRN PRN PRN Reason: NAUSEA/VOMITING Pantoprazole Sodium (Protonix) 40 mg PO DAILY [facility] Last Admin: 03/01/19 09:09 Dose: 40 mg Documented by: Pregabalin (Lyrica) 50 mg PO BID [facility] Last Admin: 03/01/19 09:16 Dose: 50 mg Documented by: Sodium Chloride () 10 - 40 ml IV UD PRN PRN Reason: SALINE FLUSH Last Admin: 02/28/19 20:14 Dose: 20 ml Documented by: Sodium Chloride () 500 ml IV BOLUS PRN PRN Reason: VASO-VAGAL PROTOCOL Medical Necessity - Tobacco Use Smoking Status: Current every day smoker Tobacco Use: Pipe Assessment/Plan All Active Problems (Last Updated 02/27/19 @ 13:13 by Ward Cordero NP-C) DM2 (diabetes mellitus, type 2) (Acute) S/P hip replacement (Acute) Pneumococcal pneumonia (Acute) Acute respiratory insufficiency (Acute) Chest pain (Acute) Patient is a 58-year-old gentleman with BMI of 8.2, diabetes mellitus type 2, history of tobacco use who presented with progressive shortness of breath chest x-ray obtained on admission demonstrated Mild left upper lobe pneumonia , admitted to regular nursing floor transferred to the progressive care unit after patient developed chest pain with elevated enzymes consistent with acute NSTEMI 1. Pneumonia: Suspected to be secondary to streptococcal pneumonia. Patient is admitted to regular floor. Patient placed on Rocephin and Zithromax. He was also placed on oxygen titrated to keep also is greater than 90. Cultures have remained negative to date. In view of patient remaining persistently dyspneic at rest with relative hypoxia consultation was placed pulmonary medicine seen by Dr. Manzo's notes and recommendations reviewed ~02/28/2019: Patient breathing continues to improve 03/01/2019: Patient to be assessed for home oxygen on 03/02/2019 in most likely he will require home oxygen 2. Acute non-STEMI being managed medically with dual antiplatelet therapy, statin therapy, beta-blockers and ALLISON inhibitors. 2D echo obtained demonstrated segmental dysfunction with preserved ejection fraction of 65%. Patient was also noted to have mild concentric left ventricular hypertrophy patient has been seen in consultation by Dr. Dong with plans for patient to undergo repeat diagnostic cardiac catheterization on 02/27/2019. ~02/27/2019 Patient to undergo left heart catheterization ~02/27/19. Patient underwent left heart catheterization with intervention (PCI with LINDA to mid LAD lesion) ~02/28/19: Patient seen denies any chest pain had a relatively uneventful night. Plan is for patient to be transferred from the ICU to the progressive care unit ~03/01/2019. Patient remained stable. Did send patient prescription Plavix 90 days with 3 refills to his pharmacy this was done and that this patient is discharged however with patient remaining hypotensive plans for discharge was placed on hold 3. Hypotension patient has history of hypertension and is on a number of medications including carvedilol lisinopril amlodipine. His amlodipine was discontinued after discussing with cardiology 4. Diabetes mellitus type 2 did continue with patient home regimen in addition to Accu-Cheks before meals and at bedtime with sliding scale coverage 5. Dyslipidemia-patient is on statin therapy, continued at home dose 6. Hypertension-meds adjusted as discussed above 7. Tobacco dependence counseled on cessation, offered nicotine patch for tobacco cravings 8. Suspected sleep apnea patient undergo sleep study as outpatient 9. Morbid obesity with BMI of 48.2 weight loss advised 10. DVT prophylaxis SC Lovenox Code Visit Inpatient E&M: 81450 Subs Hosp L2
--- NOTE | 2019-03-01 09:54 | PCM.PN.CARD ---
Subjectve: The patient is awake and alert. He appears to be resting comfortably. He denies any acute chest discomfort. He believes his breathing has improved overall. Objective: Vital Signs Temp Pulse Resp BP Pulse Ox 98.0 F 63 18 121/72 H 93 02/28/19 20:00 03/01/19 08:00 03/01/19 06:55 02/28/19 20:00 03/01/19 06:55 Oxygen Flow Rate (L/min) 3 Oxygen Delivery Method Nasal Cannula Weight: 307 lb Body Mass Index (BMI) 48.2 Intake and Output for Last 24 Hours 02/27/19 02/28/19 03/01/19 23:59 23:59 23:59 Intake Total 2345 / 2345 1740 / 2040 700 / 700 Output Total 2150 / 2150 1600 / 2250 1300 / 1300 Balance 195 / 195 140 / -210 -600 / -600 General: Awake, Alert, Oriented x 3, Cooperative, No Acute Distress, Obese HEENT: Atraumatic, Normocephalic, PERRL, EOMI, Sclera Non Icteric Oral: Moist Mucosa Neck: Supple, Good ROM, No JVD Lungs: Diminished Tyler Bases Cardiovascular: Regular Rhythm, Normal S1, Normal S2 Abdomen: Bowel Sounds Present, Soft, Non Tender, Obese Extremities: Trace RLE Edema, Trace LLE Edema Neurological: No Focal Motor or Sensory Deficit Psych/Mental Status: Appropriate 03/01/19 05:40: Sodium 140, Potassium 4.1, Chloride 99, Carbon Dioxide 35.0 H, Anion Gap 6, BUN 38 H, Creatinine 1.12, Est GFR (MDRD) Af Amer 87, Est GFR (MDRD) Non-Af 72, BUN/Creatinine Ratio 33.9 H, Glucose 138 H, Calcium 8.7 Rhythm: Sinus rhythm Medical Necessity - Tobacco Use Smoking Status: Current every day smoker Tobacco Use: Pipe Assessment/Plan 1. CAD status post LAD PCI The patient is now status post repeat diagnostic cardiac catheterization. He did demonstrate evidence of LAD in-stent restenosis. He subsequently underwent repeat LAD PCI. At the present time the patient continues without acute symptoms. He will continue to be monitored. He will continue evaluation as noted above. 2. Ischemic mediated cardiomyopathy The patient has undergone subsequent evaluation with a transthoracic echocardiogram. Again he is noted to have left ventricular regional wall motion abnormalities with an overall preserved LVEF of approximately 65%. He is also is now status post repeat diagnostic cardiac catheterization and repeat LAD PCI. The patient will continue to be monitored. He will continue medical therapy. 3. Hyperlipidemia The patient will continue risk factor evaluation care. 4. Hypertension The patient has demonstrated intermittent episodes of hypotension from the left upper extremity versus the right upper extremity. He may eventually need further evaluation for possible peripheral arterial occlusive disease involving the upper extremities. In the meantime his antihypertensive therapy will be adjusted as deemed appropriate. 5. COPD exacerbation/pneumonia The patient will continue under the care of internal medicine and Dr. Manzo pulmonology and critical care medicine. He continues to receive IV antibiotic therapy. 6. Diabetes mellitus The patient will continue evaluation care per internal medicine. Comment: The patient's case was discussed and reviewed with Dr. Noble. This note was generated using a voice recognition system and there may be incorrect words, spelling or punctuation that were not noted when reviewing the office note prior to saving.
--- NOTE | 2019-03-01 10:00 | EKG12_ITS ---
Test Reason : AM EKG Blood Pressure : / mmHG Vent. Rate : 064 BPM Atrial Rate : 064 BPM P-R Int : 172 ms QRS Dur : 112 ms QT Int : 398 ms P-R-T Axes : 059 142 033 degrees QTc Int : 410 ms Normal sinus rhythm Anterolateral infarct , age undetermined Abnormal ECG When compared with ECG of 27-FEB-2019 10:41, MANUAL COMPARISON REQUIRED, DATA IS UNCONFIRMED Confirmed by RHONDA COSTELLO ([id number]), food editor GAL COY ([id number]) on 03/12/2019 2:51:50 PM Referred By: Angel Goldberg Confirmed By:RHONDA COSTELLO
[2019-03-01 11:26] LABS: Bedside Glucose 175 mg/dL (70-110)
[2019-03-01] MEDS: Insulin Lispro 100 UNIT/ML INSULN.PEN SC (11:39)
--- NOTE | 2019-03-01 12:58 | NURSING ---
REPORT GIVEN TRANSFERRED TO PCU 116 PER WHEELCHAIR WITH BELONGINGS
[2019-03-01 17:16] LABS: Bedside Glucose 104 mg/dL (70-110)
[2019-03-01] MEDS: Carvedilol 25 MG Tablet PO (21:15)
[2019-03-01] MEDS: Atorvastatin Calcium 80 MG Tablet PO (21:15)
[2019-03-01] MEDS: 0.9% NaCl Peripheral Flush Adult/Peds IV (22:46)
[2019-03-01 23:10] LABS: Bedside Glucose 86 mg/dL (70-110)
[2019-03-02] VITALS (11 sets, daily range): BP systolic 84–114; BP diastolic 51–70; PULSE 71–90; RESP 16–20; TEMP 36.6–37; O2SAT 86–99
[2019-03-02 02:11] LABS: Bedside Glucose 35 mg/dL (70-110)
[2019-03-02 02:51] LABS: Bedside Glucose 45 mg/dL (70-110)
[2019-03-02] MEDS: Ipratropium/Albuterol Sulfate 3 ML AMPUL.NEB INHALATION ×3 (03:00→10:45)
[2019-03-02] MEDS: Dextrose 50%-Water 25 GM/50 ML DISP.SYRIN IV (03:15)
[2019-03-02 06:36] LABS: Bedside Glucose 234 mg/dL (70-110)
[2019-03-02] MEDS: Insulin Lispro 100 UNIT/ML INSULN.PEN SC ×2 (06:39→11:34)
[2019-03-02 07:01] LABS: Anion Gap 5 (5-15); BUN 37 mg/dL (7-18); BUN/Creat Ratio 28.2 RATIO (10-20); Calcium,Total 8.7 mg/dL (8.5-10.1); Chloride 97 mmol/L (98-107); Creatinine, Serum 1.31 mg/dL (0.70-1.30); EST Glomerular Filtration Rate 60 mL/min (>60); Est Glom Filt Rate - Afr Amer 73 mL/min (>60); Estimated Creatinine Clearance 58.87 ml/min; Glucose 204 mg/dL (74-106); Potassium 3.9 mmol/L (3.5-5.1); Sodium Level 139 mmol/L (136-145)
[2019-03-02] MEDS: Clopidogrel Bisulfate 75 MG Tablet PO (08:25)
[2019-03-02] MEDS: Aspirin 325 MG Tablet PO (08:25)
[2019-03-02] MEDS: Lisinopril 40 MG Tablet PO (08:25)
[2019-03-02] MEDS: Chlorthalidone 50 MG Tablet 25 MG PO (08:25)
[2019-03-02] MEDS: Carvedilol 25 MG Tablet PO (08:26)
[2019-03-02] MEDS: diazePAM 5 MG Tablet PO (08:31)
[2019-03-02] MEDS: Acetaminophen 325 MG Tablet 650 MG PO (08:31)
[2019-03-02] MEDS: Pantoprazole Sodium 40 MG Tablet PO (08:31)
[2019-03-02] MEDS: Isosorbide Mononitrate 30 MG Tablet PO (08:32)
[2019-03-02] MEDS: Pregabalin 50 MG Capsule PO (08:32)
--- NOTE | 2019-03-02 08:52 | PCM.PN.CARD ---
<Ward Cordero H - Last Filed: 03/02/19 08:52> Subjectve: Patient seen and evaluated. He denies any chest pain. He states that his shortness of breath continues to improve. Objective: Vital Signs Temp Pulse Resp BP Pulse Ox 98.2 F 79 20 H 114/70 94 03/02/19 03:10 03/02/19 07:43 03/02/19 07:43 03/02/19 03:10 03/02/19 07:43 Oxygen Flow Rate (L/min) [ 2 AMBULATION with Oxygen] Oxygen Flow Rate (L/min) 2 Oxygen Delivery Method Nasal Cannula Weight: 307 lb Body Mass Index (BMI) 48.2 Intake and Output for Last 24 Hours 02/28/19 03/01/19 03/02/19 23:59 23:59 23:59 Intake Total 1740 / 2040 1240 / 1480 480 / 480 Output Total 1600 / 2250 1800 / 1800 Balance 140 / -210 -560 / -320 480 / 480 General: Healthy Appearing, Awake, Alert, Oriented x 3, Cooperative, No Acute Distress Oral: Moist Mucosa Neck: No JVD Lungs: Diminished Tyler Bases Cardiovascular: Regular Rhythm, Normal S1, Normal S2, No Murmurs, No Rubs, No Gallops Vascular: No Carotid Bruits Abdomen: Soft Extremities: No Cyanosis, No Clubbing, No edema, Normal Capillary Refill, Bilateral Edema +1 - feet Musculoskeletal: No Erythema, No Warmth Skin: No Rashes Neurological: No Focal Motor or Sensory Deficit Psych/Mental Status: Appropriate 03/02/19 05:55: Sodium 139, Potassium 3.9, Chloride 97 L, Carbon Dioxide 37.0 H, Anion Gap 5, BUN 37 H, Creatinine 1.31 H, Est GFR (MDRD) Af Amer 73, Est GFR (MDRD) Non-Af 60, BUN/Creatinine Ratio 28.2 H, Glucose 204 H, Calcium 8.7 Rhythm: EKG: ECHO: 02/25/2019 Interpretation Summary The study was technically difficult. Contrast injection was performed. Segmental dysfunction with preserved ejection fraction (see wall motion). The estimated ejection fraction is 65 %. Mild concentric left ventricular hypertrophy. The left atrium is mildly enlarged. Trivial mitral valve insufficiency. Trivial tricuspid valve insufficiency. Mild focal aortic valve calcification. Unable to estimate RV systolic pressure/pulmonary artery pressure due to technically difficult study. Transmitral doppler flow suggestive of impaired relaxation of left ventricle Stress Test: Cardiac Cath: 02/27/19 CORONARY ANGIOGRAPHY DOMINANCE: Right Dominant LEFT HEART ASSESSMENT Left Ventricular Ejection Fraction: by LV Gram 55 % Anterior Hypokinesis. Apical Hypokinesis Elevated Left Ventricular End Diastolic Pressure LVEDP: 26 mmHg LEFT MAIN: Proximal: Eccentric: 10 - 25 % Stenosis LEFT ANTERIOR DESCENDING ARTERY: MID LAD: Previously placed stent is patent with proximal 85% instent restenosis and distal long diffuse 90% instent restenosis with the distal LAD filling late, faintly, partially, and froom right to left collateral flow CIRCUMFLEX ARTERY: Mild luminal irregularities MID CIRC: Small caliber vessel: long; diffuse; 75 % Stenosis OM 1: Proximal - 50 % Stenosis RIGHT CORONARY ARTERY: Diffuse: 25 % Stenosis RT PDA: Mid - 50 % Stenosis COLLATERAL FLOW: Collateral flow from Right to Left VALVE FINDINGS: Normal Aortic Valve function Normal Mitral Valve function AORTIC ROOT: Angiographically normal PCI: 02/27/19 Successful PTCA/LINDA with 2.0 x 10 angiosculpt, followed with a 2.25 x 38 Promus Synergy, followed immediately upstream with a 3.0 x 16 Promus Synergy, post dilated proximally with a 3.0 x 8 NC Balloon; 90%-->0%, no dissection and 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 CT Surgery: Holter monitor: EPS: PPM: CXR: Chest CT Scan: Medical Necessity - Tobacco Use Smoking Status: Current every day smoker Tobacco Use: Pipe Assessment/Plan 1. CAD status post LAD PCI The patient is now status post repeat diagnostic cardiac catheterization. He did demonstrate evidence of LAD in-stent restenosis. He subsequently underwent repeat LAD PCI. At the present time the patient continues without acute symptoms. He will continue to be monitored. He will continue evaluation as noted above. From a cardiac standpoint patient can be discharged for outpatient follow-up. He is scheduled to see the [facility] on 03/18/2019 at 1:30 PM with Ward Cramer Nurse Practitioner. At that time we will assess overall progress and order outpatient stress test to evaluate LCx/OM and PDA lesions. He will wait to proceed with cardiac rehab till after outpatient stress test. He will continue with aspirin, Plavix, carvedilol, lisinopril, and atorvastatin on discharge. 2. Ischemic mediated cardiomyopathy The patient has undergone subsequent evaluation with a transthoracic echocardiogram. Again he is noted to have left ventricular regional wall motion abnormalities with an overall preserved LVEF of approximately 65%. He is also is now status post repeat diagnostic cardiac catheterization and repeat LAD PCI. The patient will continue to be monitored. He will continue medical therapy. 3. Hyperlipidemia The patient will continue risk factor evaluation care. 4. Hypertension The patient has demonstrated intermittent episodes of hypotension from the left upper extremity versus the right upper extremity. He may eventually need further evaluation for possible peripheral arterial occlusive disease involving the upper extremities. This will be reassessed at outpatient office visit and consideration for further testing. His blood pressure appears stable. He will continue with current medications which include amlodipine, carvedilol, chlorthalidone, isosorbide, and lisinopril. 5. COPD exacerbation/pneumonia Patient was reminded to continue with pulmonary evaluation and recommendations post discharge. 6. Diabetes mellitus The patient will continue evaluation care per internal medicine. He was also reminded the importance of diabetic control in relation to cardiovascular health. Thank you for allowing us to participate in the patients plan of care, if you have any questions please do not hesitate to call. This note was generated using a voice recognition system and there may be incorrect words, spelling or punctuation that were not noted when reviewing the office note prior to saving. <Stu Dong - Last Filed: 03/02/19 16:12> Objective: Vital Signs Temp Pulse Resp BP Pulse Ox 98.3 F 83 20 H 101/53 L 90 03/02/19 16:06 03/02/19 16:06 03/02/19 16:06 03/02/19 16:06 03/02/19 16:06 Oxygen Flow Rate (L/min) [ 2 AMBULATION with Oxygen] Oxygen Flow Rate (L/min) 2 Oxygen Delivery Method Nasal Cannula Weight: 307 lb Body Mass Index (BMI) 48.2 Intake and Output for Last 24 Hours 02/28/19 03/01/19 03/02/19 23:59 23:59 23:59 Intake Total 1740 / 2040 1240 / 1480 840 / 840 Output Total 1600 / 2250 1800 / 1800 Balance 140 / -210 -560 / -320 840 / 840 03/02/19 05:55: Sodium 139, Potassium 3.9, Chloride 97 L, Carbon Dioxide 37.0 H, Anion Gap 5, BUN 37 H, Creatinine 1.31 H, Est GFR (MDRD) Af Amer 73, Est GFR (MDRD) Non-Af 60, BUN/Creatinine Ratio 28.2 H, Glucose 204 H, Calcium 8.7 Rhythm: EKG: ECHO: Stress Test: Cardiac Cath: PCI: CT Surgery: Holter monitor: EPS: PPM: CXR: Chest CT Scan: Assessment/Plan Date: 03-02-19 Addendum: The above was independently evaluated/examined. The patient appears from a cardiac standpoint to be without ongoing chest discomfort. He notes his breathing has improved overall. His lungs demonstrate diminished breath sounds bilaterally. His cardiovascular exam demonstrates a regular rhythm with a normal S1 and S2. He has no ongoing peripheral pitting edema. His cardiac rhythm has remained sinus rhythm. At the present time the patient appears able to be released home from a cardiovascular standpoint. He will need continued outpatient cardiovascular follow-up. He will have to follow-up with pulmonology as well as deemed appropriate. The patient's case has been discussed with Ward Cordero CNP. This note was generated using a voice recognition system and there may be incorrect words, spelling or punctuation that were not noted when reviewing the office note prior to saving.
[2019-03-02] MEDS: guaiFENesin 1,200 MG Tablet 1200 MG PO (09:08)
--- NOTE | 2019-03-02 09:22 | PN_ITS ---
Patient Problems: Active and Suspected Problems (Last Updated 02/27/19 @ 13:13 by Ward Cordero RING ROLLING MACHINE OPERATOR- C) DM2 (diabetes mellitus, type 2) (Acute) S/P hip replacement (Acute) bilateral Pneumococcal pneumonia (Acute) Acute respiratory insufficiency (Acute) COPD exacerbation (Suspected) Chest pain (Acute) Subjective: Patient did okay overnight. Patient is reporting his baseline back pain is present. Patient did have some hypoglycemia overnight, but this was improved this morning. Patient does believe his breathing is subjectively improved compared to previous. - Physical Exam General: Alert, Oriented x3, Cooperative, No apparent distress, - - Morbidly obese. No conversational dyspnea. HEENT: Atraumatic, PERRLA, EOMI, Normocephalic, - - No scleral icterus or injection noted. Oral: Moist Mucosa, No Gingival or Mucosal Lesions/ Ulcerations Neck: Supple, No Nodes, Trachea Midline, - - Difficult to assess for JVD given body habitus and sosa Lungs: No rhonchi, No wheeze, No rales, Diminished Cardiovascular: Regular rate, Regular Rhythm, Normal S1, Normal S2, No murmurs, No rub noted, No Gallop Abdomen: Bowel Sounds Present, Soft, Non Tender, Non-Distended, Obese Extremities: No clubbing, No cyanosis, No edema, Capillary Refill Less than 3 Seconds Skin: No rashes, No breakdown Musculoskeletal: No Tenderness to Palpation of Joints or Extremities Lymphatic: No Cervical, Supraclavicular, or Inguinal Adenopathy Neurological: Cranial nerves II-XII grossly intact, Neuro grossly intact, Motor Exam 5/5 strength throughout Psych/Mental Status: Alert and oriented to time, place, person, mood and affect Vital Signs Temp Pulse Resp BP Pulse Ox 36.8 C 79 20 H 114/70 94 03/02/19 03:10 03/02/19 07:43 03/02/19 07:43 03/02/19 03:10 03/02/19 07:43 Oxygen Flow Rate (L/min) [ 2 AMBULATION with Oxygen] Oxygen Flow Rate (L/min) 2 Oxygen Delivery Method Nasal Cannula Weight: 139.253 kg Body Mass Index (BMI) 48.2 Intake and Output for Last 24 Hours 02/28/19 03/01/19 03/02/19 23:59 23:59 23:59 Intake Total 1740 / 2040 1240 / 1480 480 / 480 Output Total 1600 / 2250 1800 / 1800 Balance 140 / -210 -560 / -320 480 / 480 Laboratory Tests Past 24 Hrs 03/02/19 05:55 Sodium 139 Potassium 3.9 Chloride 97 L Carbon Dioxide 37.0 H Anion Gap 5 BUN 37 H Creatinine 1.31 H Estim Creat Clear Calc 58.87 Est GFR (MDRD) Af Amer 73 Est GFR (MDRD) Non-Af 60 BUN/Creatinine Ratio 28.2 H Glucose 204 H Calcium 8.7 POC Glucose 03/02/19 03/02/19 03/02/19 06:10 02:45 02:07 POC Glucose 234 H 45 L 35 L* 03/01/19 03/01/19 03/01/19 21:08 17:05 11:22 POC Glucose 86 104 175 H Medical Necessity - Tobacco Use Smoking Status: Current every day smoker Tobacco Use: Pipe Assessment/Plan All Active Problems (Last Updated 02/27/19 @ 13:13 by Ward Cordero, RING ROLLING MACHINE OPERATOR-C) DM2 (diabetes mellitus, type 2) (Acute) S/P hip replacement (Acute) Pneumococcal pneumonia (Acute) Acute respiratory insufficiency (Acute) Chest pain (Acute) RECOMMENDATIONS: 1. Plan to complete a treatment course of antibiotics x7 days. 2. Placed on prednisone and wean over 12 to 14 days 3. Wean supplemental oxygen to maintain saturations at or above 90%. 4. Encourage incentive spirometer use and mobilize patient as tolerated. 5. Perform walking oximetry study prior to consideration for discharge from the hospital. Anticipate home-going oxygen need, at least on exertion. 6. Outpatient PFTs and pulmonary follow-up was recommended within 2 weeks of discharge from the hospital. 7. Consider outpatient polysomnogram. IMPRESSIONS: 1. Acute hypoxemic respiratory insufficiency Potentially related to COPD exacerbation in the setting of community- acquired pneumonia. However, the patient is never undergone formal pulmonary function studies to actually confirm a diagnosis of obstructive lung disease. Patient does not have any steroids on his MAR at this time. Patient will be placed on prednisone. This should be weaned over the next 12 to 14 days. Patient will need a walking oximetry prior to discharge. Anticipate patient may require supplemental oxygen on exertion at a minimum. This can be optimized and rechecked as an outpatient. Patient would benefit from a complete pulmonary function test as an outpatient for quantification and clarification of lung function. 2. Long-standing tobacco dependency As noted above, recommend outpatient pulmonary function studies to quantify lung function. Smoking cessation is advisable. N 3. Coronary artery disease status post drug-eluting stent placement to mid LAD Continue current medical management per cardiology recommendations. 4. Morbid obesity/diabetes mellitus/hypertension/hyperlipidemia/GERD Complicates care, management, recovery and prognosis. Okay to continue home medications as indicated. Patient would benefit from an outpatient polysomnogram for evaluation of obstructive sleep apnea. Code Visit Inpatient E&M: 38589 Subs Hosp L2
--- NOTE | 2019-03-02 10:00 | EKG12_ITS ---
Test Reason : AM EKG Blood Pressure : / mmHG Vent. Rate : 060 BPM Atrial Rate : 060 BPM P-R Int : 176 ms QRS Dur : 114 ms QT Int : 406 ms P-R-T Axes : 057 028 039 degrees QTc Int : 406 ms Normal sinus rhythm with sinus arrhythmia Septal infarct , age undetermined Abnormal ECG When compared with ECG of 28-FEB-2019 05:10, MANUAL COMPARISON REQUIRED, DATA IS UNCONFIRMED Confirmed by RHONDA COSTELLO ([id number]), order editor GAL COY ([id number]) on 03/12/2019 2:52:06 PM Referred By: Angel Goldberg Confirmed By:RHONDA COSTELLO
--- NOTE | 2019-03-02 10:32 | DCINST_ITS ---
- Discharge Diagnoses Current Active Problems: Current Active and Chronic Problems (Last Updated 02/27/19 @ 13:13 by ESPERANZA Denson) COPD (chronic obstructive pulmonary disease) (Chronic) History of coronary artery stent placement (Chronic ~02/27/19) Stenting x2 to mid LAD with vessel dissection on 11/03/2001 with [facility]; PTCA/LINDA to mid LAD on 02/27/2019;PTCA/LINDA to mid LAD 02/27/19 HTN (hypertension) (Chronic) DM2 (diabetes mellitus, type 2) (Acute) S/P hip replacement (Acute) bilateral Pneumococcal pneumonia (Acute) Acute respiratory insufficiency (Acute) Chest pain (Acute) Reason(s) for Visit for Discharge Instructions: Shortness of breath You will use the following diet at home:: Calorie/Carbohydrate Controlled (specify 1200, 1400, etc), Cardiac Your food should be the consistency of: Regular Your liquids should be the consistency of: Regular/Thin Discharge Activity: Return to Normal Activity Additional Instructions: Continue to take all your medications as prescribed. Monitor your blood glucose checks. Take note to changes in yiur medications. Continue to remain active. Follow-up with cardiac rehab as scheduled. Follow-up with your primary care doctor within 1-2 weeks. Allergies/Adverse Reactions: Allergies No Known Allergies Allergy (Verified 02/22/19 16:34) Medications to take at Discharge Aspirin 325 mg PO DAILY@0800 03/09/18 Atorvastatin Calcium 80 mg PO QHS 03/09/18 Carvedilol 25 mg PO BID 03/09/18 Insulin Glargine,Hum.rec.anlog [Lantus] 300 unit SQ QHS 03/09/18 Insulin Lispro [Humalog] 30 unit SQ TIDCM 03/09/18 Lisinopril [Zestril] 40 mg PO DAILY 03/09/18 Metformin HCl 1,000 mg PO BID 03/09/18 Chlorthalidone [Hygroton] 25 mg PO DAILY 02/23/19 Isosorbide Mononitrate [Isosorbide Mononitrate ER] 30 mg PO DAILY 02/23/19 Nitroglycerin (INPATIENT USE) [Nitrostat] 0.4 mg SL PRN PRN 02/23/19 Omeprazole [Prilosec] 20 mg PO DAILY 02/23/19 Pregabalin [Lyrica] 75 mg PO BID 02/23/19 Clopidogrel Bisulfate [Plavix] 75 mg PO DAILY #90 tab 03/01/19 Guaifenesin [Mucinex] 1,200 mg PO BID #20 tab 03/02/19 Prednisone 10 mg PO DAILY #30 tab 03/02/19 The following prescriptions were given: Guaifenesin [Mucinex] 1,200 mg PO BID #20 tab [facility] Clopidogrel Bisulfate [Plavix] 75 mg PO DAILY #90 tab Prednisone 10 mg PO DAILY #30 tab Transmission Status: [facility] Orders to be completed after discharge: Phase II, Outpatient Cardiac Rehab Location: None Selected Primary Care Physician: Manuelito Hughes MD [Primary Care Provider] - Please follow up with your Primary Care Physician in: within 1-2 weeks Test Results: Test results from this visit will be discussed in further detail at your follow- up appointment, if applicable. Please Follow Up With: Stu Dong MD When: within 1-2 weeks Please Follow Up With: Alexander Brito MD When: within 1-2 weeks Proposed Discharge Date: 03/02/19
--- NOTE | 2019-03-02 10:38 | DS.PCM_ITS ---
Discharge Date and Diagnosis - Problem List Patient Problems: Active and Suspected Problems (Last Updated 02/27/19 @ 13:13 by TWIN Denson) DM2 (diabetes mellitus, type 2) (Acute) S/P hip replacement (Acute) bilateral Pneumococcal pneumonia (Acute) Acute respiratory insufficiency (Acute) COPD exacerbation (Suspected) Chest pain (Acute) Date of Admission: 02/22/19 Date of Discharge: 03/02/19 - Primary Discharge Diagnosis Active and Suspected Problems (Last Updated 02/27/19 @ 13:13 by TWIN Denson C) Relative hypotension, meds adjusted Hypoglycemia episode Acute streptococcal Community-acquired pneumonia Acute NSTEMI Acute hypoxic respiratory insufficiency - Secondary Discharge Diagnosis Chronic Problems (Last Updated 02/27/19 @ 13:13 by ESPERANZA Denson) COPD (chronic obstructive pulmonary disease) (Chronic) History of coronary artery stent placement (Chronic ~02/27/19) Stenting x2 to mid LAD with vessel dissection on 11/03/2001 with [facility]; PTCA/LINDA to mid LAD on 02/27/2019;PTCA/LINDA to mid LAD 02/27/19 HTN (hypertension) (Chronic) Atherosclerosis of [place] coronary artery of [place] heart without angina pectoris (Chronic) Stenting x2 to mid LAD with vessel dissection on 11/03/2001 with [facility]; PTCA/LINDA to mid LAD on 02/27/2019; Hospital Course and Treatment Imaging Results: Clinical Impression(s) from Imaging Studies Chest X-Ray 02/22/19 16:57 IMPRESSION: Mild left upper lobe pneumonia is suspected. Electronically Signed: Shaun Cui MD at 17:29 EDT Tel , Service support , Chest X-Ray 02/26/19 05:55 IMPRESSION: Progressive infiltration and atelectasis at the left lung base with blunting of the left phrenic angle. Stable bilateral pleural thickening. Electronically Signed: Jamarcus Fernando, at 12:58 EDT , Service support , Cardiology Pulmonology Operations: None Procedures: 2-D Echocardiogram, Cardiac catheterization Summary of Care Provided: The patient is a 58 year old M with past medical history of hypertension, type II DM, morbid obesity who was admitted with shortness of breath ongoing for 1 week. Patient's admitting chest x-ray showed left lower lobe infiltrate. He was managed as acute hypoxic respiratory insufficiency secondary to streptococcal pneumonia. Patient also was found to have elevated troponins for which cardiology was consulted. He underwent cardiac catheterization after medical optimization. Findings demonstrated LAD in-stent restenosis for which he underwent repeat LAD PCI. He will be followed up in the outpatient with cardiology and cardiac rehab. Patient completed 7 days of IV antibiotics during the hospital stay. He was seen by pulmonology. He was also managed as acute COPD exacerbation. He was discharged on prednisone. Patient was evaluated for oxygen after discharge and qualified for oxygen. He is on 2 L of oxygen. It was recommended that the patient follows up for outpatient sleep study. Patient Problems: Active and Suspected Problems (Last Updated 02/27/19 @ 13:13 by Ward Cordero, INSIDE SALES SPECIALIST- C) DM2 (diabetes mellitus, type 2) (Acute) S/P hip replacement (Acute) bilateral Pneumococcal pneumonia (Acute) Acute respiratory insufficiency (Acute) COPD exacerbation (Suspected) Chest pain (Acute) Subjective: Patient was seen and examined. Denied any new complaints. He was relatively hypotensive. Hypoglycemia was noted overnight. Patient admits that he did not eat well the night before. He says he does not eat as much as he does at home. Objective: Physical Exam General: Alert, Oriented x3, Cooperative, morbidly obese, on 2L oxygen HEENT: Atraumatic, PERRLA, EOMI, Normocephalic Neck: Supple, No JVD, Negative Carotid Bruits Lungs: No rales, Diminished Cardiovascular: Regular rate, No murmurs Abdomen: Bowel Sounds Present, Soft, Non Tender Extremities: No edema, Capillary Refill Less than 3 Seconds Skin: No rashes, No breakdown Musculoskeletal: No Tenderness to Palpation of Joints or Extremities Neurological: Cranial nerves II-XII grossly intact Psych/Mental Status: Normal Affect, Appropriate, Alert and oriented to time, place, person, mood and affect - Physical Exam Vital Signs Temp Pulse Resp BP Pulse Ox 98.6 F 90 20 H 109/63 86 03/02/19 08:30 03/02/19 08:30 03/02/19 08:30 03/02/19 08:30 03/02/19 09:37 Oxygen Flow Rate (L/min) [ 2 AMBULATION with Oxygen] Oxygen Flow Rate (L/min) 2 Oxygen Delivery Method Nasal Cannula Weight: 139.253 kg Body Mass Index (BMI) 48.2 Intake and Output for Last 24 Hours 02/28/19 03/01/19 03/02/19 23:59 23:59 23:59 Intake Total 1740 / 2040 1240 / 1480 480 / 480 Output Total 1600 / 2250 1800 / 1800 Balance 140 / -210 -560 / -320 480 / 480 Laboratory Tests Past 24 Hrs 03/02/19 05:55 Sodium 139 Potassium 3.9 Chloride 97 L Carbon Dioxide 37.0 H Anion Gap 5 BUN 37 H Creatinine 1.31 H Estim Creat Clear Calc 58.87 Est GFR (MDRD) Af Amer 73 Est GFR (MDRD) Non-Af 60 BUN/Creatinine Ratio 28.2 H Glucose 204 H Calcium 8.7 POC Glucose 03/02/19 03/02/19 03/02/19 06:10 02:45 02:07 POC Glucose 234 H 45 L 35 L* 03/01/19 03/01/19 03/01/19 21:08 17:05 11:22 POC Glucose 86 104 175 H Discharge Diet: Low fat/ Low Cholesterol, 2000 mg Sodium Diet, Carb Control Diet Discharge Activity: Return to Normal Activity Home Medications: Medications to take at Discharge Aspirin 325 mg PO DAILY@0800 03/09/18 Atorvastatin Calcium 80 mg PO QHS 03/09/18 Insulin Glargine,Hum.rec.anlog [Lantus] 300 unit SQ QHS 03/09/18 Insulin Lispro [Humalog] 30 unit SQ TIDCM 03/09/18 Metformin HCl 1,000 mg PO BID 03/09/18 Isosorbide Mononitrate [Isosorbide Mononitrate ER] 30 mg PO DAILY 02/23/19 Nitroglycerin (INPATIENT USE) [Nitrostat] 0.4 mg SL PRN PRN 02/23/19 Omeprazole [Prilosec] 20 mg PO DAILY 02/23/19 Pregabalin [Lyrica] 75 mg PO BID 02/23/19 Clopidogrel Bisulfate [Plavix] 75 mg PO DAILY #90 tab 03/01/19 Carvedilol [Coreg] 12.5 mg PO BID #60 tab 03/02/19 Guaifenesin [Mucinex] 1,200 mg PO BID #20 tab 03/02/19 Ipratropium/Albuterol Sulfate [Duoneb] 3 ml INHALATION Q4H.RT #1 box 03/02/19 Lisinopril 20 mg PO DAILY #30 tab 03/02/19 Prednisone 10 mg PO DAILY #30 tab 03/02/19 Following Prescrptions Were Given to Patient: Carvedilol [Coreg] 12.5 mg PO BID #60 tab Transmission Status: Received by [id number] Ipratropium/Albuterol Sulfate [Duoneb] 3 ml INHALATION Q4H.RT #1 box Transmission Status: Received by [id number] Lisinopril 20 mg PO DAILY #30 tab Transmission Status: Received by [facility] Guaifenesin [Mucinex] 1,200 mg PO BID #20 tab Transmission Status: Received by [id number] Clopidogrel Bisulfate [Plavix] 75 mg PO DAILY #90 tab Transmission Status: Received by [id number] Prednisone 10 mg PO DAILY #30 tab Transmission Status: Received by [id number] Other Amb Orders: Phase II, Outpatient Cardiac Rehab Location: None Selected Primary Care Physician: Manuelito Hughes MD [Primary Care Provider] - Please follow up with your Primary Care Physician in: within 1-2 weeks Please Follow Up With: Stu Dong MD When: within 1-2 weeks Please Follow Up With: Alexander Brito MD When: within 1-2 weeks Disposition: Home Minutes spent on discharge:: 40 Patient Condition:: Stable Medical Necessity - Tobacco Use Smoking Status: Current every day smoker Tobacco Use: Pipe Meaningful Use Info Meaningful Use Diagnoses (Choose all that apply): AMI - AMI Aspirin given w/in 24hrs of arrival?: Yes ASA at discharge?: Yes Statins at discharge?: Yes Fidencio/ARB at discharge?: Yes Beta Fer at discharge?: Yes Done w/ Acute IL measure.: Yes Documented LVEF (%): 65
[2019-03-02] MEDS: predniSONE 20 MG Tablet 40 MG PO (11:34)
[2019-03-02 11:45] LABS: Bedside Glucose 188 mg/dL (70-110)
--- NOTE | 2019-03-02 11:56 | CASEMGMT ---
Per Wilma TINAJERO, pt did qualify for home oxygen at this time. Pt would like [facility] and referral sent for 2liters home oxygen and nebulizer at this time. Call to Castro at [facility] and he is aware of referral at this time. Dr. Noble had left a message regarding sleep study being set up at discharge but Dr. Brito states to have pt f/u as outpt with pulmonology office and they will schedule sleep study at that time. Annabelle TINAJERO CM
--- NOTE | 2019-03-03 13:38 | CASEMGMT ---
TANVI DC PHONE CALL DC DATE: 03/02/19 DC Disposition: Home Diagnosis on Discharge: COPD LACE/STRATA: 04/30 Attempted call to patient's home. No answer. Maribel HERNANDES RN ACM
--- NOTE | 2019-03-18 13:19 | CCN.REFER ---
Patient declines CCN.
== END 2019-03-02 16:04 | disposition home or self-care (01) | DRG 981 ==
LOC: ED 17:30 → MS3 18:24 → PCU 02-25 01:30 → ICU 02-27 09:32 → PCU 03-02 07:15 → ICU 03-02 15:35 → PCU 03-02 15:35
PROVIDERS: Internal Medicine; Internal Medicine Cardiovascular Disease; Internal Medicine Critical Care Medicine; Physician Assistant; Emergency Provider Emergency Medicine; Family Provider Internal Medicine; PCP Internal Medicine; Visit Provider Internal Medicine
DX: J13 Pneumonia due to Streptococcus pneumoniae (principal); I21.4 Non-ST elevation (NSTEMI) myocardial infarction; Z68.42 Body mass index [BMI] 45.0-49.9, adult; T82.855A Stenosis of coronary artery stent, initial encounter; J44.1 Chronic obstructive pulmonary disease with (acute) exacerbation; R09.02 Hypoxemia; R06.89 Other abnormalities of breathing; E66.01 Morbid (severe) obesity due to excess calories; E11.649 Type 2 diabetes mellitus with hypoglycemia without coma; F17.290 Nicotine dependence, other tobacco product, uncomplicated; E78.5 Hyperlipidemia, unspecified; I25.5 Ischemic cardiomyopathy; I10 Essential (primary) hypertension; I25.10 Atherosclerotic heart disease of native coronary artery without angina pectoris; Z79.4 Long term (current) use of insulin; Z95.5 Presence of coronary angioplasty implant and graft
CPT/HCPCS: 36415; 71045; 71046; 80048; 80061; 82962; 83605; 83735; 83880; 84439; 84443; 84484; 85025; 85027; 85347; 85610; 85730; 87070; 87205; 87449; 87633; 87641; 92928; 93005; 93306; 93458; 94640; 94667; 94668; 94762; 97162; 97530; 97802; 97803; 99152; 99153; 99285; 99406; C1760; J7030; J7040; Q9957; Q9967; A4216; C1725; C1769; C1874; C1887; C1894; C8929; C9600

== ENCOUNTER → 2019-04-02 10:51 | Outpatient (CLI) | payer MEDICARE, SELFPAY ==
[2019-03-13 14:00] VITALS: BMI 47.1
[2019-03-18 13:09] VITALS: BMI 49.4
[2019-04-02 11:00] VITALS: PULSE 102; PULSE 111; PULSE 113; PULSE 119; PULSE 121; PULSE 95; PULSE 98; O2SAT 88; O2SAT 90; O2SAT 92; O2SAT 93; O2SAT 94; O2SAT 96
--- NOTE | 2019-04-02 13:15 | WT_ITS ---
PSN 6 Minute Walk Test - 6 Minute Walk Test 6 Minute Walk Test: 6 Minute Walk Test PSN:6-Minute Walk Test Start: 04/02/19 11:21 Freq: Status: Active Protocol: [id number] Document 04/02/19 11:00 HG (Rec: 04/02/19 11:24 HG [id number]) 6 Minute Walk Test Date Performed 04/02/19 Time Performed 11:00 Height 5 ft 7 in Weight: 140.614 kg Weight in Pounds 310.[address]: Carmen Mahan Assistive device used: Walker Pre-test Oxygen Delivery Method Room Air Pulse Ox (%) 92 Pulse Rate (60-100 beats/min) 98 Dyspnea Luis Felipe Scale (0-10) 1 Exertion Luis Felipe Scale (6-20) 8 1st minute Oxygen Delivery Method Room Air Pulse Ox (%) 90 Pulse Rate (60-100 beats/min) 95 2nd minute Oxygen Delivery Method Room Air Pulse Ox (%) 88 Pulse Rate (60-100 beats/min) 111 H 3rd minute Oxygen Flow Rate (L/min) (L/min) 2 Oxygen Delivery Method Nasal Cannula Pulse Ox (%) 93 Pulse Rate (60-100 beats/min) 111 H 4th minute Oxygen Flow Rate (L/min) (L/min) 2 Oxygen Delivery Method Nasal Cannula Pulse Ox (%) 93 Pulse Rate (60-100 beats/min) 113 H Reported Symptoms Increased Work of Breathing 5th minute Oxygen Flow Rate (L/min) (L/min) 2 Oxygen Delivery Method Nasal Cannula Pulse Ox (%) 94 Pulse Rate (60-100 beats/min) 119 H Reported Symptoms Increased Work of Breathing 6th minute Oxygen Flow Rate (L/min) (L/min) 2 Oxygen Delivery Method Nasal Cannula Pulse Ox (%) 94 Pulse Rate (60-100 beats/min) 121 H Reported Symptoms Increased Work of Breathing Post-test Oxygen Flow Rate (L/min) (L/min) 2 Oxygen Delivery Method Nasal Cannula Pulse Ox (%) 96 Pulse Rate (60-100 beats/min) 102 H Dyspnea Luis Felipe Scale (0-10) 4 Exertion Luis Felipe Scale (6-20) 13 Reported Symptoms Increased Work of Breathing Full Laps Walked 12 Partial Lap, Number of Tiles Walked 0 Total Distance Walked (ft) 708 - Interpretation Interpretation: The patient was noted to be 92% on room air. The patient did desaturate to 88% in the second minute to 88%. Patient was placed on 2 L nasal cannula and was able to complete 6 minutes of walk. In total, patient traveled 708 feet over the course of 6 minutes with the assistance of a walker and one break. The patient did have significant tachycardia as high as 121 bpm. These findings are consistent with a respiratory limitation exercise tolerance. - Recommendations Recommendations: The patient requires no supplemental oxygen at rest, but should be using 2 L n mamadou cannula oxygen with any exertion.
== END ==
PROVIDERS: Family Provider Internal Medicine; PCP Internal Medicine; Referring Provider Nurse Practitioner Acute Care; Visit Provider Nurse Practitioner Acute Care
DX: J44.9 Chronic obstructive pulmonary disease, unspecified (principal)
CPT/HCPCS: 94618

== ENCOUNTER → 2019-04-14 10:07 | Outpatient (CLI) | payer MEDICARE, SELFPAY ==
[2019-03-13 14:00] VITALS: BMI 47.1
[2019-03-18 13:09] VITALS: BMI 49.4
--- NOTE | 2019-04-15 09:28 | PFT ---
INTRODUCTION: The patient is a 68-year-old male that presents for pulmonary function studies secondary to a diagnosis of COPD. Respiratory therapy reports good patient effort. Bronchodilators were used during testing. INTERPRETATION: Forced expiration spirometry demonstrates no evidence of a large airways obstructive ventilatory defect. There was no significant response to aerosolized bronchodilators. Spirograms are of good quality and plateau normally. Body plethysmography was performed and reveals a decrease TLC to 4.65 L, 79% of predicted, indicative of a mild restrictive ventilatory defect. The remainder of the lung volumes are symmetrically reduced. Diffusing capacity by single breath CO is reduced at 70% of predicted. IMPRESSION: Mild restrictive ventilatory defect with symmetric reduction in diffusing capacity.
== END ==
PROVIDERS: Family Provider Internal Medicine; PCP Internal Medicine; Referring Provider Nurse Practitioner Acute Care; Visit Provider Nurse Practitioner Acute Care
DX: J44.9 Chronic obstructive pulmonary disease, unspecified (principal)
CPT/HCPCS: 94060; 94726; 94729

== ENCOUNTER → 2019-04-21 06:52 | Outpatient (CLI) | payer MEDICARE, SELFPAY ==
[2019-03-18 13:09] VITALS: BMI 49.4
--- NOTE | 2019-04-21 09:34 | STRESSREP_ITS ---
Stress Test Report Date: 04-21-19 Procedure: Pharmacologic stress nuclear imaging study Indications: Chest pain; CAD; PCI Consent: Per the patient Procedure: The patient underwent pharmacologic (Regadenoson) evaluation with a peak heart rate of 104 beats per minute (63 %predicted maximal heart rate) and a peak blood pressure of 136/66 mmHg. The baseline ECG demonstrated normal sinus rhythm, possible anterolateral MO-age determined. The peak pharmacologic ECG demonstrated no obvious ECG changes. There were no cardiac dysrhythmias pretest, during pharmacologic infusion, or recovery. There was no complaint of chest discomfort during pharmacologic infusion or recovery. The examination was discontinued secondary to completion of protocol. Impression: 1. Pharmacologic (Regadenoson) evaluation 2. Peak pharmacologic ECG with no obvious ECG changes. 3. There were no cardiac dysrhythmias pretest, during pharmacologic infusion, or recovery. 4. Nuclear images pending Myocardial perfusion imaging study: Technique: The patient was injected with 14.6 millicuries of technetium 99m Cardiolite and subsequently rest SPECT Cardiolite nuclear imaging was obtained in the horizontal long, vertical long, and short axis views. The patient underwent pharmacologic (Regadenoson) evaluation with a peak heart rate of 104 beats per minute (63 % percent predicted maximal heart rate) and a peak blood pressure of 136/66 mmHg. The patient was injected with 44.1 millicuries of technetium 99m Cardiolite and subsequently stress SPECT Cardiolite nuclear imaging was obtained in the horizontal long, vertical long, and short axis views. A gated Cardiolite study at peak stress was obtained. Interpretation: Rest and stress SPECT Cardiolite nuclear imaging status post realignment, normalization, and attenuation correction demonstrate diminished myocardial perfusion uptake to absence of myocardial perfusion uptake in portions of the distal anterior, anterior apical, septal apical, inferior apical, and lateral apical segments without change between rest and stress. There is diminished end systolic thickening and brightening in the aforementioned areas. The gated Cardiolite study demonstrates diminished myocardial thickening and inward wall motion in the aforementioned areas as well as consideration for dyskinesis in the apical segments. The reported LVEF is 40 %. Impression: 1. Rest and stress SPECT Cardiolite nuclear imaging demonstrate myocardial perfusion changes compatible with an area of previous myocardial injury/infarction portions of the distal anterior, anteroapical, septal, and segments with no myocardial perfusion changes considered diagnostic for associated stress-induced myocardial ischemia. 2. The gated Cardiolite study reports an LVEF of 40 %. This note was generated with [employer] software. It may contain incorrect words, spelling, and punctuation that were not noted in checking the note before signing.
== END ==
PROVIDERS: Family Provider Internal Medicine; PCP Internal Medicine; Referring Provider Nurse Practitioner Family; Visit Provider Nurse Practitioner Family
DX: I25.10 Atherosclerotic heart disease of native coronary artery without angina pectoris (principal); R07.9 Chest pain, unspecified; Z95.5 Presence of coronary angioplasty implant and graft
CPT/HCPCS: 78452; 93017; A9500; A4216; J2785

== ENCOUNTER → 2020-11-24 06:50 | Outpatient (CLI) | payer MEDICARE, SELFPAY ==
[2020-11-09 13:51] VITALS: BMI 49.1
--- NOTE | 2020-11-24 08:40 | STRESSREP_ITS ---
Stress Test Report Date: 11-24-2020 Procedure: Pharmacologic stress nuclear imaging study Indications: Chest pain; CAD; PCI Consent: Per the patient Procedure: The patient underwent pharmacologic (Regadenoson 0.4mg ) evaluation with a peak heart rate of 88 beats per minute (54%predicted maximal heart rate) and a peak blood pressure of 190/100 mmHg. The baseline ECG demonstrated sinus rhythm; poor R wave progression; anterolateral [place] of indeterminate age cannot be excluded. The peak pharmacologic ECG demonstrated no obvious ECG changes. There was a rare PVC during recovery. There was no complaint of chest discomfort during pharmacologic infusion or recovery. The examination was discontinued secondary to completion of protocol. Impression: 1. Pharmacologic (Regadenoson) evaluation 2. Peak pharmacologic ECG with no obvious ECG changes. 3. There was a rare PVC during recovery. 4. Nuclear images pending Myocardial perfusion imaging study: Technique: The patient was injected with 14.8 millicuries of technetium 99m Cardiolite and subsequently rest SPECT Cardiolite nuclear imaging was obtained in the horizontal long, vertical long, and short axis views. The patient underwent pharmacologic (Regadenoson) evaluation with a peak heart rate of 88 beats per minute (54% percent predicted maximal heart rate) and a peak blood pressure of 190/100 mmHg. The patient was injected with 45.0 millicuries of technetium 99m Cardiolite and subsequently stress SPECT Cardiolite nuclear imaging was obtained in the horizontal long, vertical long, and short axis views. A gated Cardiolite study at peak stress was obtained. Interpretation: Rest and stress SPECT Cardiolite nuclear imaging status post realignment, normalization, and attenuation correction demonstrate the appearance of diminished absence of myocardial perfusion/tracer uptake in portions of the mid to distal anterior, anterior apical, septal apical, lateral apical, and inferior apical segments without significant change between rest and stress. There is diminished end systolic thickening and brightening in the aforementioned areas. The gated Cardiolite study demonstrates diminished myocardial thickening and inward wall motion in the aforementioned areas. The reported LVEF is 37%. Impression: 1. Rest and stress myocardial imaging demonstrate myocardial perfusion changes compatible with an area of previous myocardial injury/infarction involving portions of the mid to distal anterior as well as the anteroapical, septal apical, lateral apical, and inferoapical segments with no myocardial perfusion changes considered diagnostic for associated stress-induced myocardial ischemia. 2. The gated Cardiolite study reports an LVEF of 37%. This note was generated with [employer] software. It may contain incorrect words, spelling, and punctuation that were not noted in checking the note before signing.
== END ==
PROVIDERS: PCP Internal Medicine; Referring Provider Internal Medicine Cardiovascular Disease; Visit Provider Internal Medicine Cardiovascular Disease
DX: I25.10 Atherosclerotic heart disease of native coronary artery without angina pectoris (principal); E78.5 Hyperlipidemia, unspecified; I10 Essential (primary) hypertension; Z95.5 Presence of coronary angioplasty implant and graft
CPT/HCPCS: 78452; 93017; A9500; A4216; J2785